=== PATIENT | female | born 1935 | race Caucasian/White ===

== ENCOUNTER 2016-04-24 14:53 | Emergency (ER) | payer OTHER ==
[2016-04-24 15:05] VITALS: TEMP 97.4; BMI 23.6
--- NOTE | 2016-04-24 16:30 | PDOC ---
History of Present Illness - General History Source: Patient Exam Limitations: No Limitations - History of Present Illness Initial Comments: 04/24/16 16:30 CHIEF COMPLAINT: Weakness HISTORY OF PRESENT ILLNESS: This is a 81 year old female with a history of NIDDM , HTN, HLD, prior UTIs, appendectomy, cholecystectomy, and right THR in March 2016 brought in by her son for evaluation of generalized weakness, vomiting, and abdominal pain since yesterday. The patient reports that her "whole body is numb." She denies headache, chest pain, shortness of breath, constipation/diarrhea, hematemesis, and fevers/chills. Vital signs on arrival are unremarkable. PCP is Dr. Hoffmann REVIEW OF SYSTEMS: GENERAL/CONSTITUTIONAL: No fever or chills. No weakness. No weight change. HEAD, EYES, EARS, NOSE AND THROAT: No change in vision. No ear pain or discharge. No sore throat. CARDIOVASCULAR: No chest pain or palpitations. RESPIRATORY: No cough, wheezing, or shortness of breath. GASTROINTESTINAL: Lower abdominal pain, bilateral. Nausea/vomiting and inability to tolerate fluids since yesterday. GENITOURINARY: Dysuria. No frequency or hematuria. MUSCULOSKELETAL: Chronic left hip pain. SKIN: No rash or easy bruising. NEUROLOGIC: Numbness throughout body. No headache, vertigo, loss of consciousness, or focal weakness. PSYCHIATRIC: No depression or anxiety. ENDOCRINE: No increased thirst. No abnormal weight change. HEMATOLOGIC/LYMPHATIC: No anemia, easy bleeding, or history of blood clots. ALLERGIC/IMMUNOLOGIC: No hives or skin allergy. No latex allergy. PHYSICAL EXAM: GENERAL: The patient is awake, alert, and fully oriented, appears pale, weak, writhing in pain. ENT: Pupils equal, round and reactive to light, extraocular movements intact, sclera anicteric, conjunctiva clear. Neck supple. LUNGS: Clear to auscultation bilaterally. Normal excursion. No respiratory distress or use of accessory muscles. CV: RRR, S1/S2, no MRG. Cap refill < 2 sec. ABDOMEN: Soft, non-distended, tender to gentle palpation in both RLQ and LLQ. EXTREMITIES: Normal range of motion, no edema. Normal strength and sensation in all extremities. NEUROLOGICAL: Normal speech. CN II-XII grossly intact. PSYCH: Normal mood, normal affect. SKIN: Warm, dry, normal turgor, no rashes or lesions noted. <Kelley Barrios - Last Filed: 04/24/16 17:58> <Mayi Monge - Last Filed: 04/24/16 22:54> - General Chief Complaint: Weakness Stated Complaint: WEANKNESS,VOMITING Time Seen by Provider: 04/24/16 16:28 Past History - Past Medical History Anemia: No Asthma: No Cancer: No Cardiac Disorders: No CVA: No COPD: No CHF: No Dementia: No Diabetes: No GI Disorders: Yes (gerd) Disorders: No HTN: Yes Hypercholesterolemia: No Liver Disease: No Psychiatric Problems: Yes (depression) Seizures: No Thyroid Disease: No - Surgical History Abdominal Surgery: No Appendectomy: Yes Cardiac Surgery: No Cholecystectomy: No Lung Surgery: No Neurologic Surgery: No Orthopedic Surgery: Yes (LEFT LEG FX, ORIF IN [place] YEARS AGO) - Immunization History Immunization Up to Date: Yes - Psycho/Social/Smoking Cessation Hx Anxiety: No Suicidal Ideation: No Smoking Status: No Smoking History: Never smoked Have you smoked in the past 12 months: No Number of Cigarettes Smoked Daily: 0 Information on smoking cessation initiated: No Hx Alcohol Use: No Drug/Substance Use Hx: No Substance Use Type: None Hx Substance Use Treatment: No <Kelley Barrios - Last Filed: 04/24/16 17:58> <Mayi Monge - Last Filed: 04/24/16 22:54> - Past Medical History Allergies/Adverse Reactions: Allergies Allergy/AdvReac Type Severity Reaction Status Date / Time No Known Allergies Allergy Verified 04/24/16 15:01 Home Medications: Ambulatory Orders Amlodipine Besylate [Norvasc -] 5 mg PO DAILY 03/23/16 Sertraline HCl 50 mg PO DAILY 03/23/16 Zolpidem Tartrate [Ambien] 10 mg PO HS PRN 03/23/16 Aspirin [ASA -] 325 mg PO DAILY@0800 tablet 04/04/16 Oxycodone HCl/Acetaminophen [Oxycodone-Acetaminophen 10-325] 1 each PO QID PRN # 50 tablet MDD 4 04/04/16 Cephalexin [Keflex] 500 mg PO Q6H #20 capsule 04/24/16 Omeprazole 10 mg PO DAILY 04/24/16 *Physical Exam - Vital Signs Last Vital Signs Temp Pulse Resp BP Pulse Ox 97.4 F L 77 18 142/70 100 04/24/16 15:02 04/24/16 15:02 04/24/16 15:02 04/24/16 15:02 04/24/16 15:02 <SophieTraciea - Last Filed: 04/24/16 17:58> - Vital Signs Last Vital Signs Temp Pulse Resp BP Pulse Ox 97.4 F L 82 18 142/84 95 04/24/16 15:02 04/24/16 19:34 04/24/16 19:34 04/24/16 19:34 04/24/16 19:34 <Mayi Monge - Last Filed: 04/24/16 22:54> Heart Score/ECG Review - ECG Intrepretation Comment:: 04/24/16 17:46 NSR at 72bpm, no ST or T wave changes. <Kelley Barrios - Last Filed: 04/24/16 17:58> ED Treatment Course - LABORATORY CBC & Chemistry Diagram: 04/24/16 16:42 04/24/16 16:42 - RADIOLOGY Radiology Studies Ordered: Category Date Time Status CHEST X-RAY PORTABLE* [RAD] Stat Radiology 04/24/16 16:30 Ordered <Kelley Barrios - Last Filed: 04/24/16 17:58> - LABORATORY CBC & Chemistry Diagram: 04/24/16 16:42 04/24/16 16:42 - ADDITIONAL ORDERS Additional order review: Laboratory Results 04/24/16 04/24/16 04/24/16 17:18 16:42 16:42 INR Cancelled Sodium Potassium Chloride Carbon Dioxide Anion Gap BUN Creatinine Creat Clearance w eGFR Random Glucose Calcium Total Bilirubin AST ALT Alkaline Phosphatase Creatine Kinase 156 CK-MB (CK-2) < 1.000 Troponin I < 0.02 Total Protein Albumin Urine Color Straw Urine Appearance Clear Urine pH 8.0 D Ur Specific [place] 1.005 Urine Protein Negative Urine Glucose (UA) Negative Urine Ketones Negative Urine Blood Negative Urine Nitrite Negative Urine Bilirubin Negative Urine Urobilinogen Negative Ur Leukocyte Esterase 1+ H Urine RBC 1 Urine WBC 9 Ur Epithelial Cells Rare Urine Bacteria Rare 04/24/16 16:42 INR Sodium 132 L Potassium 4.6 Chloride 99 Carbon Dioxide 25 Anion Gap 8 BUN 8 Creatinine 0.6 Creat Clearance w eGFR > 60 Random Glucose 103 Calcium 9.2 Total Bilirubin 0.4 D AST 26 D ALT 15 Alkaline Phosphatase 140 H D Creatine Kinase CK-MB (CK-2) Troponin I Total Protein 7.5 Albumin 3.8 Urine Color Urine Appearance Urine pH Ur Specific [place] Urine Protein Urine Glucose (UA) Urine Ketones Urine Blood Urine Nitrite Urine Bilirubin Urine Urobilinogen Ur Leukocyte Esterase Urine RBC Urine WBC Ur Epithelial Cells Urine Bacteria 04/24/16 16:42 RBC 3.53 L MCV 88.5 MCHC 33.5 RDW 14.3 MPV 7.0 L Neutrophils % 78.0 Lymphocytes % 12.4 D Monocytes % 8.1 Eosinophils % 1.0 Basophils % 0.5 - Medications Given in the ED: ED Medications Discontinued Medications Generic Name Dose Route Start Last Admin Trade Name Mahinq PRN Reason Stop Dose Admin Ceftriaxone Sodium 1 gm/ 50 mls @ 100 mls/hr 04/24/16 17:57 04/24/16 18:20 Dextrose IVPB 04/24/16 18:26 100 mls/hr ONCE ONE Administration Morphine Sulfate 4 mg 04/24/16 16:47 04/24/16 17:25 Morphine Injection - IVPUSH 04/24/16 16:48 4 mg ONCE ONE Administration Ondansetron HCl 4 mg 04/24/16 16:36 04/24/16 17:20 Zofran Injection IVPUSH 04/24/16 16:37 4 mg ONCE ONE Administration Phenazopyridine HCl 100 mg 04/24/16 22:29 04/24/16 22:50 Pyridium - PO 04/24/16 22:30 100 mg ONCE ONE Administration <Mayi Monge - Last Filed: 04/24/16 22:54> Medical Decision Making - Medical Decision Making 04/24/16 17:46 A/P: 81 year old female with generalized weakness, numbness (nonfocal neurologic exam), vomiting, and abdominal pain with bilateral lower abdominal tenderness. Differential includes but is not limited to UTI, colitis/ diverticulitis, gastroenteritis. 1. EKG 2. Cardiac and abdominal labs 3. UA/culture 4. CTAP with PO/IV contrast 5. Morphine 4mg IVP for pain, Zofran 4mg IVP for nausea 6. IVF 7. Re-assess 04/24/16 17:57 UA with 9 WBCs, posibly consistent with UTI. Culture pending. Will treat with Ceftriaxone as she is symptomatic. Hgb is 10.5, which is improved since last visit. <Kelley Barrios - Last Filed: 04/24/16 17:58> *DC/Admit/Observation/Transfer <Kelley Barrios - Last Filed: 04/24/16 17:58> <Mayi Monge - Last Filed: 04/24/16 22:54> Diagnosis at time of Disposition: Urinary tract infection - Prescriptions Prescriptions: Cephalexin [Keflex] 500 mg PO Q6H #20 capsule - Referrals Referrals: Abner Sarabia MD [Primary Care Provider] - - Patient Instructions Printed Discharge Instructions: Urinary Tract Infection Additional Instructions: Drink plenty of fluids Take the Keflex as prescribed Return to the ER if fever or feeling sicker González your other issues with your primary care doctor and orthopedist, call them tomorrow to discuss this visit
[2016-04-24] MEDS ORDERED: ONDANSETRON 4 MG/2 ML VIAL IVPUSH ONE (16:36)
[2016-04-24] MEDS ORDERED: morphine CARPU-JECT 4 MG/1 ML DISP.SYRIN IVPUSH ONE (16:47)
[2016-04-24] MEDS ORDERED: ONDANSETRON 4 MG/2 ML VIAL ONE ×2 (16:47→16:48)
[2016-04-24] MEDS ORDERED: morphine CARPU-JECT 4 MG/1 ML DISP.SYRIN ONE (16:47)
[2016-04-24 16:52] LABS: BASOPHIL 0.5 % (0-2.0); MCH 29.7 pg (25.7-33.7); MCHC 33.5 g/dl (32.0-36.0); MEAN CELL VOLUME 88.5 fl (80-96); PLATELET COUNT 465 K/MM3 (134-434); RDW 14.3 % (11.6-15.6); WHITE BLOOD COUNT 7.2 K/mm3 (4.0-10.0)
[2016-04-24 17:11] LABS: ALBUMIN 3.8 g/dl (3.4-5.0); ANION GAP 8 (8-16); BILIRUBIN,TOTAL 0.4 mg/dL (0.2-1.0); CALCIUM 9.2 mg/dL (8.5-10.1); CO2 25 mmol/L (21-32); CREATININE 0.6 mg/dL (0.55-1.02); GLUCOSE,RANDOM 103 mg/dL (74-106); SGPT/ALT 15 U/L (12-78); TOT PROT 7.5 g/dl (6.4-8.2)
[2016-04-24 17:12] LABS: ALK PHOS 140 U/L (45-117)
[2016-04-24 17:14] LABS: TROPONIN I < 0.02 ng/ml (0.00-0.05)
[2016-04-24 17:26] LABS: SGOT/AST 26 U/L (15-37)
[2016-04-24 17:37] LABS: URINE APPEARANCE CLEAR; URINE BILIRUBIN NEGATIVE (NEGATIVE); URINE BLOOD NEGATIVE (NEGATIVE); URINE COLOR STRAW; URINE GLUCOSE (UA) NEGATIVE (NEGATIVE); URINE KETONE NEGATIVE (NEGATIVE); URINE NITRITE NEGATIVE (NEGATIVE); URINE PROTEIN NEGATIVE (NEGATIVE); URINE UROBILINOGEN NEGATIVE E.U./dl (0.2-1.0)
--- NOTE | 2016-04-24 17:44 | PDOC ---
[id number] 100 04/24/16 15:02 04/24/16 15:02 04/24/16 15:02 04/24/16 15:02 04/24/16 15:02 ED Treatment Course - LABORATORY CBC & Chemistry Diagram: 04/24/16 16:42 04/24/16 16:42 - ADDITIONAL ORDERS Additional order review: Laboratory Results 04/24/16 04/24/16 04/24/16 16:42 16:42 16:42 INR Cancelled Sodium 132 L Potassium 4.6 Chloride 99 Carbon Dioxide 25 Anion Gap 8 BUN 8 Creatinine 0.6 Creat Clearance w eGFR > 60 Random Glucose 103 Calcium 9.2 Total Bilirubin 0.4 D AST 26 D ALT 15 Alkaline Phosphatase 140 H D Troponin I < 0.02 Total Protein 7.5 Albumin 3.8 04/24/16 16:42 RBC 3.53 L MCV 88.5 MCHC 33.5 RDW 14.3 MPV 7.0 L Neutrophils % 78.0 Lymphocytes % 12.4 D Monocytes % 8.1 Eosinophils % 1.0 Basophils % 0.5 - Medications Given in the ED: ED Medications Discontinued Medications Generic Name Dose Route Start Last Admin Trade Name Freq PRN Reason Stop Dose Admin Morphine Sulfate 4 mg 04/24/16 16:47 04/24/16 17:25 Morphine Injection - IVPUSH 04/24/16 16:48 4 mg ONCE ONE Administration Ondansetron HCl 4 mg 04/24/16 16:36 04/24/16 17:20 Zofran Injection IVPUSH 04/24/16 16:37 4 mg ONCE ONE Administration Medical Decision Making - Medical Decision Making 04/24/16 17:43 Pt seen by the Advanced Practice Provider under my direct supervision Ancillary studies reviewed I agree with plan as outlined by the Advanced Practice Provider MONA Barrios *DC/Admit/Observation/Transfer Diagnosis at time of Disposition: Urinary tract infection - Discharge Dispostion Disposition: HOME - Prescriptions Prescriptions: Cephalexin [Keflex] 500 mg PO Q6H #20 capsule - Referrals Referrals: Abner Sarabia MD [Primary Care Provider] - - Patient Instructions Printed Discharge Instructions: Urinary Tract Infection Additional Instructions: Drink plenty of fluids Take the Keflex as prescribed Return to the ER if fever or feeling sicker González your other issues with your primary care doctor and orthopedist, call them tomorrow to discuss this visit
[2016-04-24 17:50] LABS: URINE LEUK ESTERASE 1+ (NEGATIVE)
[2016-04-24 17:51] LABS: URINE BACTERIA RARE /hpf (NONE SEEN); URINE RBC 1 /hpf (0-3); URINE WBC 9 /hpf (3-5)
[2016-04-24] MEDS ORDERED: CEFTRIAXONE 1 GM in DEXTROSE 5%-WATER - 50 ML IVPB ONE (17:57)
[2016-04-24] MEDS ORDERED: SODIUM CHLORIDE 1,000 ML IV SCH (18:00)
[2016-04-24] MEDS ORDERED: CEFTRIAXONE 50 ML ONE (18:12)
--- NOTE | 2016-04-24 19:18 | PDOC ---
*Physical Exam - Vital Signs Last Vital Signs Temp Pulse Resp BP Pulse Ox 97.4 F L 77 18 142/70 100 04/24/16 15:02 04/24/16 15:02 04/24/16 15:02 04/24/16 15:02 04/24/16 15:02 - Physical Exam Comments: 04/24/16 19:26 Patient signed out to me, pending CT scan, patient with UTI symptoms, abdominal pain, was given Rocephin in the ER, no fever, normal white count. Given pain, CT scan was ordered. Patient was feeling better + out to me, and if no acute issues, Go home, Keflex was sent to pharmacy by prior practitioner ED Treatment Course - LABORATORY CBC & Chemistry Diagram: 04/24/16 16:42 04/24/16 16:42 - ADDITIONAL ORDERS Additional order review: Laboratory Results 04/24/16 04/24/16 04/24/16 17:18 16:42 16:42 INR Cancelled Sodium Potassium Chloride Carbon Dioxide Anion Gap BUN Creatinine Creat Clearance w eGFR Random Glucose Calcium Total Bilirubin AST ALT Alkaline Phosphatase Troponin I < 0.02 Total Protein Albumin Urine Color Straw Urine Appearance Clear Urine pH 8.0 D Ur Specific [place] 1.005 Urine Protein Negative Urine Glucose (UA) Negative Urine Ketones Negative Urine Blood Negative Urine Nitrite Negative Urine Bilirubin Negative Urine Urobilinogen Negative Ur Leukocyte Esterase 1+ H Urine RBC 1 Urine WBC 9 Ur Epithelial Cells Rare Urine Bacteria Rare 04/24/16 16:42 INR Sodium 132 L Potassium 4.6 Chloride 99 Carbon Dioxide 25 Anion Gap 8 BUN 8 Creatinine 0.6 Creat Clearance w eGFR > 60 Random Glucose 103 Calcium 9.2 Total Bilirubin 0.4 D AST 26 D ALT 15 Alkaline Phosphatase 140 H D Troponin I Total Protein 7.5 Albumin 3.8 Urine Color Urine Appearance Urine pH Ur Specific [place] Urine Protein Urine Glucose (UA) Urine Ketones Urine Blood Urine Nitrite Urine Bilirubin Urine Urobilinogen Ur Leukocyte Esterase Urine RBC Urine WBC Ur Epithelial Cells Urine Bacteria 04/24/16 16:42 RBC 3.53 L MCV 88.5 MCHC 33.5 RDW 14.3 MPV 7.0 L Neutrophils % 78.0 Lymphocytes % 12.4 D Monocytes % 8.1 Eosinophils % 1.0 Basophils % 0.5 - Medications Given in the ED: ED Medications Discontinued Medications Generic Name Dose Route Start Last Admin Trade Name Freq PRN Reason Stop Dose Admin Ceftriaxone Sodium 1 gm/ 50 mls @ 100 mls/hr 04/24/16 17:57 04/24/16 18:20 Dextrose IVPB 04/24/16 18:26 100 mls/hr ONCE ONE Administration Morphine Sulfate 4 mg 04/24/16 16:47 04/24/16 17:25 Morphine Injection - IVPUSH 04/24/16 16:48 4 mg ONCE ONE Administration Ondansetron HCl 4 mg 04/24/16 16:36 04/24/16 17:20 Zofran Injection IVPUSH 04/24/16 16:37 4 mg ONCE ONE Administration Medical Decision Making - Medical Decision Making 04/24/16 22:51 CT shows no change from prior, Discussed with Dr. Schaefer and reviewed case Discussed with son and patient, patient is taking oxycodone at home due to her recent hip surgery. Will order her 1 before she goes home, and she will follow- up with her doctor and orthopedist regarding any other issues 04/24/16 22:54 Patient is hungry and eating *DC/Admit/Observation/Transfer Diagnosis at time of Disposition: Urinary tract infection Qualifiers: Qualified Code(s): N39.0 - Urinary tract infection, site not specified - Discharge Dispostion Admit: No - Prescriptions Prescriptions: Cephalexin [Keflex] 500 mg PO Q6H #20 capsule - Referrals Referrals: Abner Sarabia MD [Primary Care Provider] - - Patient Instructions Printed Discharge Instructions: Urinary Tract Infection Additional Instructions: Drink plenty of fluids Take the Keflex as prescribed Return to the ER if fever or feeling sicker González your other issues with your primary care doctor and orthopedist, call them tomorrow to discuss this visit
[2016-04-24 19:34] VITALS: BP 142/84; PULSE 82
[2016-04-24] MEDS ORDERED: PHENAZOPYRIDINE HCL 100 MG TABLET (FP) PO ONE (22:29)
[2016-04-24] MEDS ORDERED: PHENAZOPYRIDINE HCL 100 MG TABLET (FP) ONE (22:47)
[2016-04-24] MEDS ORDERED: OXYCODONE/APAP 5/325MG COMBO TABLET PO ONE (22:51)
[2016-04-24] MEDS ORDERED: OXYCODONE/APAP 5/325MG COMBO TABLET ONE (23:07)
--- NOTE | 2016-04-25 16:23 | EKG ---
Test Reason : Blood Pressure : / mmHG Vent. Rate : 072 BPM Atrial Rate : 072 BPM P-R Int : 156 ms QRS Dur : 086 ms QT Int : 404 ms P-R-T Axes : 018 028 031 degrees QTc Int : 442 ms NORMAL SINUS RHYTHM NORMAL ECG WHEN COMPARED WITH ECG OF 15-JAN-2016 21:42, NO SIGNIFICANT CHANGE WAS FOUND Confirmed by MARISOL SEYMOUR MD ([id number]) on 04/25/2016 4:23:07 PM Referred By: Confirmed By:MARISOL SEYMOUR MD
== END 2016-04-24 23:24 | disposition home or self-care (01) ==
LOC: JER 14:53
PROC: 3E03329 Introduction of Other Anti-infective into Peripheral Vein, Percutaneous Approach (ICD-10-PCS; principal; 2016-04-24)
PROC: 3E033NZ Introduction of Analgesics, Hypnotics, Sedatives into Peripheral Vein, Percutaneous Approach (ICD-10-PCS; 2016-04-24)
PROC: 3E033GC Introduction of Other Therapeutic Substance into Peripheral Vein, Percutaneous Approach (ICD-10-PCS; 2016-04-24)
DX: N39.0 Urinary tract infection, site not specified (principal); I10 Essential (primary) hypertension; E11.9 Type 2 diabetes mellitus without complications; Z79.84 Long term (current) use of oral hypoglycemic drugs; E78.00 Pure hypercholesterolemia, unspecified; F32.9 Major depressive disorder, single episode, unspecified
CPT/HCPCS: 36415; 71010-TC; 74177-TC; 80053; 81003; 81015; 82550; 82553; 84484; 85025; 87086; 93005; 93010; 96365; 96375; 99285-25

== ENCOUNTER 2016-05-17 11:28 | Inpatient (IN) | payer OTHER ==
--- NOTE | 2016-05-17 12:14 | PDOC ---
History of Present Illness <Cory Stuart - Last Filed: 05/17/16 16:04> - General History Source: Patient, Old Records Exam Limitations: No Limitations - History of Present Illness Initial Comments: 05/17/16 12:16 The patient is a 81-year-old woman, accompanied by son, with a significant past medical history of hypertension, gatsroesophageal reflux disease, recent UTI and depression who presents to the emergency department via EMS for further evaluation of flank pain. As per son, the patient was recently admitted for a urinary tract infection. Patient was started on antibiotics and was discharge. He states that the patient's symptoms, despite compliance/completion with antibiotics, have persisted. Patient's son states that the patient still experiences dysuria, described as a burning sensation with associated urinary frequency and little urine output (secondary to dysuria). Patient's symptoms worsen, approximately 4 days ago when the patient reported severe "pain in her kidneys". Patent's pain has progressively worsen, as now experiencing suprapubic pain, chills and she severe pain bilateral flank pain that exacerbated when sitting/standing and is now radiating down her legs. She denies fever, diaphoresis, generalized weakness. She denies chest pain, shortness of breath, cough She denies nausea, vomiting, diarrhea, hematuria, urinary urgency. Allergies: No Known Allergies Past Surgical History: Recent full left hip replacement. Left leg fracture. ORIF. Social History: No tobacco, ETOH and recreational drug use. Primary Care Physician: Dr. Abner Sarabia [phone] <Vibha Pina - Last Filed: 05/17/16 16:12> - General Stated Complaint: BACK PAIN Time Seen by Provider: 05/17/16 12:08 Past History - Past Medical History Anemia: No Asthma: No Cancer: No Cardiac Disorders: No CVA: No COPD: No CHF: No Dementia: No Diabetes: No GI Disorders: Yes (gerd) Disorders: No HTN: Yes Hypercholesterolemia: No Liver Disease: No Psychiatric Problems: Yes (depression) Seizures: No Thyroid Disease: No - Surgical History Abdominal Surgery: No Appendectomy: Yes Cardiac Surgery: No Cholecystectomy: No Lung Surgery: No Neurologic Surgery: No Orthopedic Surgery: Yes (LEFT LEG FX, ORIF IN [place] YEARS AGO) - Immunization History Immunization Up to Date: Yes - Psycho/Social/Smoking Cessation Hx Anxiety: No Suicidal Ideation: No Smoking Status: No Smoking History: Never smoked Have you smoked in the past 12 months: No Number of Cigarettes Smoked Daily: 0 Hx Alcohol Use: No Drug/Substance Use Hx: No Substance Use Type: None Hx Substance Use Treatment: No <Cory Stuart - Last Filed: 05/17/16 16:04> <Vibha Pina - Last Filed: 05/17/16 16:12> - Past Medical History Allergies/Adverse Reactions: Allergies Allergy/AdvReac Type Severity Reaction Status Date / Time No Known Allergies Allergy Verified 05/17/16 12:42 Home Medications: Ambulatory Orders Amlodipine Besylate [Norvasc -] 5 mg PO DAILY 03/23/16 Sertraline HCl 50 mg PO DAILY 03/23/16 Zolpidem Tartrate [Ambien] 10 mg PO HS PRN 03/23/16 Aspirin [ASA -] 325 mg PO DAILY@0800 tablet 04/04/16 Oxycodone HCl/Acetaminophen [Oxycodone-Acetaminophen 10-325] 1 each PO QID PRN # 50 tablet MDD 4 04/04/16 Omeprazole 10 mg PO DAILY 04/24/16 Ciprofloxacin [Cipro (Restricted To Id)] 250 mg PO BID 05/17/16 Gabapentin 300 mg PO DAILY 05/17/16 Review of Systems - Review of Systems Constitutional: Yes: Chills. No: Fever Respiratory: No: Shortness of Breath Cardiac (ROS): No: Chest Pain ABD/GI: No: Diarrhea, Poor Appetite, Vomiting : Yes: See HPI Musculoskeletal: Yes: Back Pain All Other Systems: Reviewed and Negative <Cory Stuart - Last Filed: 05/17/16 16:04> *Physical Exam - Physical Exam Comments: 05/17/16 12:16 GENERAL: The patient is awake, alert, and fully oriented, in no acute distress. HEAD: Normal with no signs of trauma. EYES: Pupils equal, round and reactive to light, extraocular movements intact, sclera anicteric, conjunctiva clear with no pallor. ENT: Ears normal, nares patent, oropharynx clear without exudates. Moist mucous membranes. NECK: Normal range of motion, supple without lymphadenopathy, JVD, or masses. LUNGS: Breath sounds equal, clear to auscultation bilaterally. No wheeze/ crackles. HEART: Regular rate and rhythm, normal S1 and S2 without murmur or rub. ABDOMEN: Soft. There is lower abdominal tenderness to palpation with guarding. Nondistended. BS wnl. No rebound. No palpable masses. No hepatosplenomegaly. BACK: There is bilateral CVA tenderness. There is also discomfort across the back with gentle palpation. No bruising or swelling or cellulitis. EXTREMITIES: There is full range of motion with full strength but with some reproducible pain on flexion of the left lower extremity. No edema. No clubbing or cyanosis. No cords, erythema, or tenderness. NEUROLOGICAL: Cranial nerves II through XII grossly intact. Normal speech. PSYCH: Normal mood, normal affect. SKIN: Warm to touch. <Vibha Pina - Last Filed: 05/17/16 16:12> Heart Score/ECG Review #1 ECG reviewed & interpreted by me at: 13:11 General ECG Interpretation: Sinus Rhythm, Normal Rate (70), Normal Intervals ( qtc 427), No acute ischemic changes <Cory Stuart - Last Filed: 05/17/16 16:04> ED Treatment Course - LABORATORY CBC & Chemistry Diagram: 05/17/16 13:05 05/17/16 13:05 <Cory Stuart - Last Filed: 05/17/16 16:04> - LABORATORY CBC & Chemistry Diagram: 05/17/16 13:05 05/17/16 13:05 - RADIOLOGY Radiograph Interpretation: 05/17/16 14:44 EXAM: RAD/CHEST X-RAY PORTABLE IMPRESSION: A single view reveals a weak inspiration with some central crowding , prominent mediastinum and degenerative changes. Correlation recommended EXAM: CT/ABDOMEN PELVIS CT WITH CONTR HISTORY IMPRESSION: The lung bases are clear. There is a small hiatal hernia in the retrocardiac space. Since a prior study of 04/24/2016, there has been no significant change. Again noted is mild inflammatory changes within the central mesentery of the upper and mid abdomen. Also again noted is dilatation of the right renal pelvis and proximal two thirds of the right ureter. The distal third of the ureter is normal in caliber. The etiology of this caliber change is uncertain and the possibility of a ureteral stricture cannot be excluded. There is no evidence of a calcification that might represent an obstructing calculus. Clinical correlation is advised. A follow-up retrograde urogram may be warranted. There is no evidence of left-sided hydronephrosis, although the proximal left ureter is also slightly dilated. Again, no obvious obstruction is identified. The liver, spleen, pancreas and adrenal glands demonstrate no significant abnormalities. The gallbladder is clear. There is no evidence of intra-abdominal or retroperitoneal lymphadenopathy or fluid collections. Examination of the pelvis demonstrates no evidence of pelvic masses, fluid collections or lymphadenopathy. The urinary bladder is mildly distended. Evaluation of the bony structures of the abdomen and pelvis demonstrates multiple compression fractures unchanged since the previous examination and most probably chronic in nature. <Vibha Pina - Last Filed: 05/17/16 16:12> Medical Decision Making - Medical Decision Making 05/17/16 12:45 A portion of this note was documented by scribe services under my direction. I have reviewed the details of the note, within reason, and agree with the documentation with the following case summary and management plan written by me. 81-year-old female with multiple medical problems including non-insulin- dependent diabetes, status post hip replacement in March, diagnosed with UTI on 04/24/16 (contaminated culture) and treated with Keflex, CTAP at that time showed reportedly new hydroureter bilaterally, now status post completion of antibiotic course but with persistent urinary complaints of burning/frequency/ hesitancy, progressive low back and now bilateral flank pain radiating down both legs and with generalized weakness and chills. No trauma. Afebrile here, vitals normal. Exquisitely tender throughout the low back and lower abdomen with positive guarding. Positive CVA tenderness bilaterally. Neurologically intact otherwise. Presentation could be most consistent with persistent UTI/bilateral pyelonephritis, concern for obstruction given the new hydroureter seen on previous CTAP. Question musculoskeletal back pain, compression fractures were noted on prior CTAP as well. Check full set of labs including urinalysis Repeat CTAP to assess ureter status and kidneys Pain control Reassess 05/17/16 14:07 No leukocytosis, slight anemia with hemoglobin 9.8 but unchanged from 04/05, chemistries within normal limits including normal troponin and normal lactate. Urinalysis clear, chest x-ray normal. Awaiting CTAP, dispo accordingly. 05/17/16 16:04 CTAP confirms no acute intrabdominal process, chronic compression fractures in the spine. Still with low back and leg pain. D/W Dr. Sarabia, patient's PMD who knows the case well, confirms patient has known lumbar herniated disc with nerve compression, has seen Dr. Charles and was suggested to have spinal surgery but she declined. Agrees patient is far from her baseline, wants admission and neurosurgical consult <Cory Stuart - Last Filed: 05/17/16 16:04> - Medical Decision Making 05/17/16 16:11 Case discussed with patient's Primary Care Physician, Dr. bAner Sarabia who accepts case. <Vibha Pina - Last Filed: 05/17/16 16:12> *DC/Admit/Observation/Transfer - Discharge Dispostion Admit: Yes <Cory Stuart - Last Filed: 05/17/16 16:04> - Attestations Scribe Attestion: 05/17/16 12:36 Documentation prepared by Vibha Pina, acting as curator medical museum for Cory Stuart MD. <Vibha Pina - Last Filed: 05/17/16 16:12> Diagnosis at time of Disposition: Lower abdominal pain, Compression fracture Low back pain Qualifiers: Chronicity: acute Back pain laterality: bilateral Sciatica presence: without sciatica Qualified Code(s): M54.5 - Low back pain Herniated vertebral disc Qualifiers: Spinal region: lumbar Qualified Code(s): M51.26 - Other intervertebral disc displacement, lumbar region - Referrals Referrals: Abner Sarabia MD [Primary Care Provider] -
[2016-05-17] MEDS ORDERED: SODIUM CHLORIDE 1,000 ML IV ONE (12:26)
[2016-05-17] MEDS ORDERED: morphine CARPU-JECT 4 MG/1 ML DISP.SYRIN IVPUSH ONE (12:27)
[2016-05-17] MEDS ORDERED: morphine CARPU-JECT 4 MG/1 ML DISP.SYRIN ONE (12:48)
[2016-05-17 13:16] LABS: VENOUS BLOOD GAS HCO3 26.4 meq/L (22-29)
[2016-05-17 13:17] LABS: VENOUS PH 7.48 (7.31-7.41)
[2016-05-17 13:18] LABS: BASOPHIL 0.9 % (0-2.0); EOSINOPHIL 1.4 % (0-4.5); MCH 28.6 pg (25.7-33.7); MEAN CELL VOLUME 86.6 fl (80-96); MEAN PLT VOLUME 6.6 fl (7.5-11.1); NEUTROPHILS 70.8 % (42.8-82.8); PLATELET COUNT 346 K/MM3 (134-434); RDW 14.1 % (11.6-15.6); WHITE BLOOD COUNT 7.4 K/mm3 (4.0-10.0)
[2016-05-17 13:31] LABS: INR 1.11 (0.82-1.09); PROTHROMBIN TIME (PATIENT) 12.2 SEC (9.98-11.88)
[2016-05-17 13:34] LABS: ACTIVATED PTT 28.9 SECONDS (26.9-34.4)
[2016-05-17 13:38] LABS: URINE APPEARANCE CLEAR; URINE BILIRUBIN NEGATIVE (NEGATIVE); URINE BLOOD NEGATIVE (NEGATIVE); URINE COLOR COLORLESS; URINE GLUCOSE (UA) NEGATIVE (NEGATIVE); URINE KETONE NEGATIVE (NEGATIVE); URINE LEUK ESTERASE NEGATIVE (NEGATIVE); URINE NITRITE NEGATIVE (NEGATIVE); URINE PROTEIN NEGATIVE (NEGATIVE); URINE UROBILINOGEN NEGATIVE E.U./dl (0.2-1.0)
[2016-05-17 13:46] LABS: ALBUMIN 3.6 g/dl (3.4-5.0); ANION GAP 11 (8-16); BILIRUBIN,TOTAL 0.3 mg/dL (0.2-1.0); CALCIUM 8.9 mg/dL (8.5-10.1); CO2 26 mmol/L (21-32); CREATININE 0.6 mg/dL (0.55-1.02); GLUCOSE,RANDOM 94 mg/dL (74-106); SGOT/AST 11 U/L (15-37); SGPT/ALT 10 U/L (12-78); TOT PROT 6.8 g/dl (6.4-8.2)
[2016-05-17 13:49] LABS: ALK PHOS 94 U/L (45-117); TROPONIN I < 0.02 ng/ml (0.00-0.05)
[2016-05-17] MEDS ORDERED: HYDROmorphone HCL CARPU-JECT 1 MG/1 ML DISP.SYRIN IVPUSH ONE (16:09)
[2016-05-17] MEDS ORDERED: HYDROmorphone HCL CARPU-JECT 1 MG/1 ML DISP.SYRIN ONE (16:31)
[2016-05-17 18:41] VITALS: BMI 24.9
[2016-05-17] MEDS: LACTULOSE 20 GM/30 ML UDC (FOR ORAL USE ONLY) PO SCH (21:09)
[2016-05-17] MEDS: HYDROmorphone HCL CARPU-JECT 1 MG/1 ML DISP.SYRIN IVPB PRN (21:09)
[2016-05-17] MEDS: PANTOPRAZOLE 40 MG TABLET (FP) PO SCH (21:09)
[2016-05-17] MEDS: GABAPENTIN 300 MG CAPSULE (FP) PO SCH (21:09)
--- NOTE | 2016-05-17 22:58 | EKG ---
Test Reason : Blood Pressure : / mmHG Vent. Rate : 070 BPM Atrial Rate : 070 BPM P-R Int : 168 ms QRS Dur : 086 ms QT Int : 396 ms P-R-T Axes : 008 027 025 degrees QTc Int : 427 ms NORMAL SINUS RHYTHM NORMAL ECG WHEN COMPARED WITH ECG OF 24-APR-2016 17:32, NO SIGNIFICANT CHANGE WAS FOUND Confirmed by TOMASZ TYSON MD ([id number]) on 05/17/2016 10:58:24 PM Referred By: Confirmed By:TOMASZ TYSON MD
[2016-05-18] MEDS: HYDROmorphone HCL CARPU-JECT 1 MG/1 ML DISP.SYRIN IVPB PRN ×5 (00:58→19:55)
--- NOTE | 2016-05-18 08:01 | HP ---
Admitting History and Physical - Primary Care Physician PCP: Abner Sarabia - Admission Chief Complaint: Low back pain and inability to walk History of Present Illness: Known case of LS spine disc disease with radiculitis who has been taking percocet or Hydrocodone for pain relief.Was referred to Dr. Silvano OCHOA in the past. Claims pain in the lower back has become unbearable and with radiation to both thighs posteriorly with severe weakness and inability to stand or walk. Came to ED and underwent a CT of abdomen which showed a hydronephrosis of right kidney and right ureter which could be due to a stricture. She was given IV Dilaudid for pain with relief. She is admitted for further management. History Source: Patient Limitations to Obtaining History: No Limitations - Past Medical History Cardiovascular: Yes: HTN, Hyperlipdemia Pulmonary: No: Asthma, Bronchitis, Cancer, COPD, O2 Dependent, Pneumonia, Previously Intubated, Pulmonary Embolus, Pulmonary Fibrosis, Sleep Apnea, Other Gastrointestinal: Yes: Constipation, Gastritis Renal/: No: Renal Failure, Renal Inusuff, BPH, Cancer, Hematuria, Hemodialysis , Neurogenic Bladder, Renal Calculi, UTI, Other Psych: Yes: Anxiety - Past Surgical History Additional Past Surgical History: Underwent left hip replacement in april of this year by - Smoking History Smoking history: Never smoked Have you smoked in the past 12 months: No Aproximately how many cigarettes per day: 0 - Alcohol/Substance Use Hx Alcohol Use: No - Social History Usual Living Arrangement: Yes: Alone ADL: Independent History of Recent Travel: No Home Medications - Allergies Allergies/Adverse Reactions: Allergies Allergy/AdvReac Type Severity Reaction Status Date / Time No Known Allergies Allergy Verified 05/17/16 12:42 - Home Medications Home Medications: Ambulatory Orders Amlodipine Besylate [Norvasc -] 5 mg PO DAILY 03/23/16 Sertraline HCl 50 mg PO DAILY 03/23/16 Zolpidem Tartrate [Ambien] 10 mg PO HS PRN 03/23/16 Aspirin [ASA -] 325 mg PO DAILY@0800 tablet 04/04/16 Oxycodone HCl/Acetaminophen [Oxycodone-Acetaminophen 10-325] 1 each PO QID PRN # 50 tablet MDD 4 04/04/16 Omeprazole 10 mg PO DAILY 04/24/16 Ciprofloxacin [Cipro (Restricted To Id)] 250 mg PO BID 05/17/16 Gabapentin 300 mg PO DAILY 05/17/16 Review of Systems - Review of Systems Constitutional: reports: Weakness Eyes: reports: No Symptoms HENT: reports: No Symptoms Neck: reports: No Symptoms Cardiovascular: denies: No Symptoms, Chest Pain, Edema, Palpitations, Shortness of Breath, Other Respiratory: reports: No Symptoms Gastrointestinal: reports: Indigestion, Nausea Genitourinary: reports: No Symptoms Breasts: reports: No Symptoms Reported Musculoskeletal: reports: Back Pain, Muscle Pain, Muscle Weakness Integumentary: reports: No Symptoms Neurological: reports: Other (low back pain radiatesd to both thighs) Physical Examination Vital Signs: Vital Signs Temperature 98.3 F 05/18/16 06:31 Pulse Rate 68 05/18/16 06:31 Respiratory Rate 20 05/18/16 06:31 Blood Pressure 146/68 05/18/16 06:31 O2 Sat by Pulse Oximetry (%) 96 05/17/16 21:15 Constitutional: Yes: Anxious, Pallor Eyes: Yes: Conjunctiva Clear, EOM Intact HENT: Yes: WNL Neck: Yes: Supple Cardiovascular: Yes: Regular Rate and Rhythm, S1, S2 Respiratory: Yes: Regular, CTA Bilaterally Gastrointestinal: Yes: Normal Bowel Sounds, Soft Renal/: Yes: WNL Breast(s): Yes: WNL Musculoskeletal: Yes: Other (movements of the LS spine markedly restricted) Extremities: No: WNL, Amputation, Calf Tenderness, Cold, Cool, Cyanosis, Deformity, Delayed Capillary Refill, Erythema, External Rotation, Internal Rotation, Pallor, Shortened, Other Edema: No Peripheral Pulses WNL: Yes Integumentary: Yes: WNL Neurological: Yes: Alert, Oriented, Babinski negative, Cran Nerves II-XII Intact ...Motor Strength: WNL Psychiatric: Yes: Alert, Oriented Imaging - Results MRI: Report Reviewed Problem List - Problems (1) Compression fracture Assessment/Plan: Compression fractures are old, osteoporosis Code(s): T14.8 - OTHER INJURY OF UNSPECIFIED BODY REGION (2) Low back pain Assessment/Plan: MRI of the LS spine does not show any disc prolapse but bulging discs Code(s): M54.5 - LOW BACK PAIN Qualifiers: Chronicity: acute Back pain laterality: bilateral Sciatica presence : without sciatica Qualified Code(s): M54.5 - Low back pain (3) Lumbar radiculitis Assessment/Plan: although no overt disc prolapse but definite symptoms of radiculitis Code(s): M54.16 - RADICULOPATHY, LUMBAR REGION Assessment/Plan Continue Dilaudid for pain relief. MRI of LS spine Will consult Dr.Thomas Ochoa, neurosurgeon.
[2016-05-18 08:48] LABS: BASOPHIL 0.8 % (0-2.0); EOSINOPHIL 3.6 % (0-4.5); MCH 28.5 pg (25.7-33.7); MCHC 32.9 g/dl (32.0-36.0); MEAN CELL VOLUME 86.7 fl (80-96); MEAN PLT VOLUME 6.8 fl (7.5-11.1); NEUTROPHILS 63.5 % (42.8-82.8); PLATELET COUNT 325 K/MM3 (134-434); RDW 13.9 % (11.6-15.6); WHITE BLOOD COUNT 6.3 K/mm3 (4.0-10.0)
[2016-05-18] MEDS: PANTOPRAZOLE 40 MG TABLET (FP) PO SCH (09:45)
[2016-05-18] MEDS: amLODIPine BESYLATE 5 MG TABLET (FP) PO SCH (09:45)
[2016-05-18] MEDS: GABAPENTIN 300 MG CAPSULE (FP) PO SCH ×2 (09:45→22:23)
[2016-05-18] MEDS: LACTULOSE 20 GM/30 ML UDC (FOR ORAL USE ONLY) PO SCH ×3 (09:45→22:23)
[2016-05-18] MEDS ORDERED: SERTRALINE HCL 50 MG TABLET (FP) PO SCH (10:00)
--- NOTE | 2016-05-18 13:53 | PN ---
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
[2016-05-18] MEDS ORDERED: FENTANYL PATCH WASTE TD PRN (20:18)
[2016-05-18] MEDS ORDERED: fentaNYL 25mcg/hr PATCH.TD72 TD SCH (20:30)
[2016-05-19] MEDS: HYDROmorphone HCL CARPU-JECT 1 MG/1 ML DISP.SYRIN IVPB PRN ×2 (00:32→05:08)
--- NOTE | 2016-05-19 08:02 | PN ---
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
--- NOTE | 2016-05-19 10:09 | PN ---
Progress Note, Physician History of Present Illness: Low back pain has improved after Fentanyl patch. Denies any weakness numbness or weakness of the legs - Current Medication List Current Medications: Active Medications Amlodipine Besylate (Norvasc -) 5 mg PO DAILY [facility] Last Admin: 05/18/16 09:45 Dose: 5 mg Fentanyl (Duragesic 25mcg Patch -) 1 patch TD Q72H [facility] Stop: 05/25/16 20:18 Last Admin: 05/18/16 21:26 Dose: 1 patch Ferrous Sulfate (Feosol -) 325 mg PO BIDWM [facility] Gabapentin (Neurontin -) 300 mg PO BID [facility] Last Admin: 05/18/16 22:23 Dose: 300 mg Hydromorphone HCl (Dilaudid -) 2 mg PO Q4H PRN PRN Reason: PAIN Lactulose (Cephulac (Oral Use)) 20 gm PO BID [facility] Last Admin: 05/18/16 22:23 Dose: 20 gm Miscellaneous (Duragesic Patch Waste) 1 each TD PRN PRN PRN Reason: PAIN Naproxen (Naprosyn -) 375 mg PO DAILY [facility] Pantoprazole Sodium (Protonix -) 40 mg PO DAILY [facility] Last Admin: 05/18/16 09:45 Dose: 40 mg Sertraline HCl (Zoloft -) 75 mg PO DAILY [facility] - Objective Vital Signs: Vital Signs Temperature 98.0 F 05/19/16 09:02 Pulse Rate 74 05/19/16 09:02 Respiratory Rate 18 05/19/16 09:02 Blood Pressure 142/57 05/19/16 09:02 O2 Sat by Pulse Oximetry (%) 95 05/18/16 21:00 Constitutional: Yes: Well Nourished, Calm Eyes: Yes: Conjunctiva Clear, EOM Intact HENT: Yes: WNL Neck: Yes: Supple Cardiovascular: Yes: Regular Rate and Rhythm, S1, S2 Respiratory: Yes: Regular, CTA Bilaterally Gastrointestinal: Yes: Normal Bowel Sounds, Soft Genitourinary: Yes: WNL Musculoskeletal: Yes: Back Pain, Joint Stiffness Extremities: Yes: WNL Edema: No Peripheral Pulses WNL: Yes Integumentary: Yes: WNL Wound/Incision: Yes: Clean/Dry Neurological: Yes: Alert, Oriented, Cran Nerves II-XII Intact ...Motor Strength: WNL Psychiatric: Yes: Alert, Oriented Labs: CBC, BMP 05/18/16 06:30 INR, PTT INR 1.11 (0.82-1.09) 05/17/16 13:05 Problem List - Problems (1) Compression fracture Code(s): T14.8 - OTHER INJURY OF UNSPECIFIED BODY REGION (2) Low back pain Code(s): M54.5 - LOW BACK PAIN Qualifiers: Chronicity: acute Back pain laterality: bilateral Sciatica presence : without sciatica Qualified Code(s): M54.5 - Low back pain (3) Lumbar radiculitis Code(s): M54.16 - RADICULOPATHY, LUMBAR REGION Assessment/Plan Will consult for pain management. May have to increase dose of Fentanyl patch. Start physical therapy for ambulation
[2016-05-19] MEDS: GABAPENTIN 300 MG CAPSULE (FP) PO SCH ×2 (10:58→22:12)
[2016-05-19] MEDS: PANTOPRAZOLE 40 MG TABLET (FP) PO SCH (10:58)
[2016-05-19] MEDS: amLODIPine BESYLATE 5 MG TABLET (FP) PO SCH (10:58)
[2016-05-19] MEDS: LACTULOSE 20 GM/30 ML UDC (FOR ORAL USE ONLY) PO SCH ×2 (10:58→22:12)
[2016-05-19] MEDS: SERTRALINE HCL 50 MG TABLET (FP) PO SCH (10:58)
[2016-05-19] MEDS ORDERED: NAPROXEN 375 MG TABLET (FP) PO SCH (11:00)
[2016-05-19] MEDS: HYDROmorphone HCL 2 MG TABLET PO PRN ×3 (11:03→19:01)
--- NOTE | 2016-05-19 11:54 | CONSULT ---
Consult - History of Present Illness History of Present Illness: Pt interviewed with industrial engineering director. Ongoing chronic back pain more severe. Pt seen and evaluated by NS. Determined not to be a surgical candidate. - Past Medical History Cardio/Vascular: Yes: HTN, Hyperlipdemia Pulmonary: No: Asthma, Bronchitis, Cancer, COPD, O2 Dependent, Pneumonia, Previously Intubated, Pulmonary Embolus, Pulmonary Fibrosis, Sleep Apnea, Other Gastrointestinal: Yes: Constipation, Gastritis Renal/: No: Renal Failure, Renal Inusuff, BPH, Cancer, Hematuria, Hemodialysis , Neurogenic Bladder, Renal Calculi, UTI, Other Psych: Yes: Anxiety - Alcohol/Substance Use Hx Alcohol Use: No - Smoking History Smoking history: Never smoked Have you smoked in the past 12 months: No Aproximately how many cigarettes per day: 0 - Social History ADL: Independent History of Recent Travel: No Home Medications - Allergies Allergies/Adverse Reactions: Allergies Allergy/AdvReac Type Severity Reaction Status Date / Time No Known Allergies Allergy Verified 05/17/16 12:42 - Home Medications Home Medications: Ambulatory Orders Amlodipine Besylate [Norvasc -] 5 mg PO DAILY 03/23/16 Sertraline HCl 50 mg PO DAILY 03/23/16 Zolpidem Tartrate [Ambien] 10 mg PO HS PRN 03/23/16 Aspirin [ASA -] 325 mg PO DAILY@0800 tablet 04/04/16 Oxycodone HCl/Acetaminophen [Oxycodone-Acetaminophen 10-325] 1 each PO QID PRN # 50 tablet MDD 4 04/04/16 Omeprazole 10 mg PO DAILY 04/24/16 Ciprofloxacin [Cipro (Restricted To Id)] 250 mg PO BID 05/17/16 Gabapentin 300 mg PO DAILY 05/17/16 Physical Exam Vital Signs: Vital Signs Temperature 98.0 F 05/19/16 09:02 Pulse Rate 74 05/19/16 09:02 Respiratory Rate 18 05/19/16 09:02 Blood Pressure 142/57 05/19/16 09:02 O2 Sat by Pulse Oximetry (%) 95 05/18/16 21:00 Constitutional: Yes: Well Nourished, No Distress (talking on phone appears comfortable), Calm Eyes: Yes: EOM Intact, PERRL. No: Ptosis Musculoskeletal: Yes: Back Pain. No: Muscle Weakness (MS 5-/5 in UE and LE. DTR absent at ankle with knee 1/4 and downgoing plantar response sensation intact to LT and vib.) Neurological: Yes: Alert, Oriented, Cran Nerves II-XII Intact, Seizure (motor -5 /5 with no focal weakness. gait not observed.). No: Aphasia, Ataxia Labs: CBC, BMP 05/18/16 06:30 Assessment/Plan Acute exacerbation of chronic back pain Evaluated by spine expert Agree with NS suggest pain management consultation as outpatient.
--- NOTE | 2016-05-19 18:07 | CONSULT ---
Consult Consult Specialty:: pain medicine Referred by:: dr king Reason for Consultation:: back pain - History of Present Illness Chief Complaint: back pain History of Present Illness: 81 year old woman with recent left hip ORIF and now with increased back pain with radiating pain down the legs Pain score 9/10 She reports inability to stand or walk due to the pain. - Past Medical History Cardio/Vascular: Yes: HTN, Hyperlipdemia Pulmonary: No: Asthma, Bronchitis, Cancer, COPD, O2 Dependent, Pneumonia, Previously Intubated, Pulmonary Embolus, Pulmonary Fibrosis, Sleep Apnea, Other Gastrointestinal: Yes: Constipation, Gastritis Renal/: No: Renal Failure, Renal Inusuff, BPH, Cancer, Hematuria, Hemodialysis , Neurogenic Bladder, Renal Calculi, UTI, Other Psych: Yes: Anxiety - Alcohol/Substance Use Hx Alcohol Use: No - Smoking History Smoking history: Never smoked Have you smoked in the past 12 months: No Aproximately how many cigarettes per day: 0 - Social History ADL: Independent History of Recent Travel: No Home Medications - Allergies Allergies/Adverse Reactions: Allergies Allergy/AdvReac Type Severity Reaction Status Date / Time No Known Allergies Allergy Verified 05/17/16 12:42 - Home Medications Home Medications: Ambulatory Orders Amlodipine Besylate [Norvasc -] 5 mg PO DAILY 03/23/16 Sertraline HCl 50 mg PO DAILY 03/23/16 Zolpidem Tartrate [Ambien] 10 mg PO HS PRN 03/23/16 Aspirin [ASA -] 325 mg PO DAILY@0800 tablet 04/04/16 Oxycodone HCl/Acetaminophen [Oxycodone-Acetaminophen 10-325] 1 each PO QID PRN # 50 tablet MDD 4 04/04/16 Omeprazole 10 mg PO DAILY 04/24/16 Ciprofloxacin [Cipro (Restricted To Id)] 250 mg PO BID 05/17/16 Gabapentin 300 mg PO DAILY 05/17/16 Physical Exam Vital Signs: Vital Signs Temperature 98.4 F 05/19/16 13:58 Pulse Rate 85 05/19/16 13:58 Respiratory Rate 18 05/19/16 13:58 Blood Pressure 139/63 05/19/16 13:58 O2 Sat by Pulse Oximetry (%) 98 05/19/16 09:00 Musculoskeletal: Yes: Back Pain Labs: CBC, BMP 05/18/16 06:30 Assessment/Plan Lumbar radiculopathy 1. Patient is requesting a lumbar epidural steroid injection. We will perform this on her on Sunday. 2. For now, continue current pain medications 3. Rehab eval
[2016-05-19] MEDS: FERROUS SO4 325 MG TABLET (FP) PO SCH (19:02)
[2016-05-19] MEDS ORDERED: FENTANYL PATCH WASTE TD PRN (19:47)
[2016-05-19] MEDS ORDERED: fentaNYL 50mcg/hr PATCH.TD72 TD SCH (20:00)
[2016-05-20] MEDS: HYDROmorphone HCL 2 MG TABLET PO PRN ×4 (03:55→21:19)
--- NOTE | 2016-05-20 09:29 | PN ---
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
[2016-05-20] MEDS: LACTULOSE 20 GM/30 ML UDC (FOR ORAL USE ONLY) PO SCH ×3 (10:02→21:15)
[2016-05-20] MEDS: GABAPENTIN 300 MG CAPSULE (FP) PO SCH ×2 (10:02→21:15)
[2016-05-20] MEDS: FERROUS SO4 325 MG TABLET (FP) PO SCH ×2 (10:02→17:42)
[2016-05-20] MEDS: PANTOPRAZOLE 40 MG TABLET (FP) PO SCH (10:03)
[2016-05-20] MEDS: amLODIPine BESYLATE 5 MG TABLET (FP) PO SCH (10:03)
[2016-05-20] MEDS: SERTRALINE HCL 50 MG TABLET (FP) PO SCH (10:03)
--- NOTE | 2016-05-20 19:03 | PN ---
Progress Note, Physician History of Present Illness: Continues to have low back pain which has become less with Fentanyl but still needs Dilaudid for control.Fels burning sensation in both legs. Unable to sit or stand due to pain - Current Medication List Current Medications: Active Medications Amlodipine Besylate (Norvasc -) 5 mg PO DAILY [facility] Last Admin: 05/20/16 10:03 Dose: 5 mg Fentanyl (Duragesic 50mcg Patch -) 1 patch TD Q72H [facility] Stop: 05/26/16 19:48 Last Admin: 05/19/16 21:12 Dose: 1 patch Ferrous Sulfate (Feosol -) 325 mg PO BIDWM [facility] Last Admin: 05/20/16 17:42 Dose: 325 mg Gabapentin (Neurontin -) 300 mg PO BID [facility] Last Admin: 05/20/16 10:02 Dose: 300 mg Hydromorphone HCl (Dilaudid -) 2 mg PO Q4H PRN PRN Reason: PAIN Last Admin: 05/20/16 14:39 Dose: 2 mg Lactulose (Cephulac (Oral Use)) 20 gm PO BID [facility] Last Admin: 05/20/16 10:06 Dose: Not Given Miscellaneous (Duragesic Patch Waste) 1 each TD PRN PRN PRN Reason: PAIN Last Admin: 05/19/16 23:07 Dose: 1 each Miscellaneous (Duragesic Patch Waste) 1 each TD PRN PRN PRN Reason: PAIN Pantoprazole Sodium (Protonix -) 40 mg PO DAILY [facility] Last Admin: 05/20/16 10:03 Dose: 40 mg Polyethylene Glycol (Miralax (For Daily Use) -) 17 gm PO DAILY [facility] Sertraline HCl (Zoloft -) 75 mg PO DAILY [facility] Last Admin: 05/20/16 10:03 Dose: 75 mg Zolpidem Tartrate (Ambien -) 10 mg PO [facility] - Objective Vital Signs: Vital Signs Temperature 97.5 F L 05/20/16 16:30 Pulse Rate 69 05/20/16 16:30 Respiratory Rate 20 05/20/16 16:30 Blood Pressure 116/56 05/20/16 16:30 O2 Sat by Pulse Oximetry (%) 98 05/20/16 09:00 Constitutional: Yes: Well Nourished, Calm Eyes: Yes: WNL HENT: Yes: WNL Neck: Yes: Supple Cardiovascular: Yes: Regular Rate and Rhythm, S1, S2 Respiratory: Yes: Regular, CTA Bilaterally Gastrointestinal: Yes: Normal Bowel Sounds, Soft Genitourinary: Yes: WNL Musculoskeletal: Yes: Back Pain Extremities: Yes: WNL Edema: No Peripheral Pulses WNL: Yes Integumentary: Yes: WNL Neurological: Yes: Alert, Oriented, Cran Nerves II-XII Intact ...Motor Strength: WNL Psychiatric: Yes: Alert, Oriented Labs: CBC, BMP 05/18/16 06:30 INR, PTT INR 1.11 (0.82-1.09) 05/17/16 13:05 Problem List - Problems (1) Compression fracture Code(s): T14.8 - OTHER INJURY OF UNSPECIFIED BODY REGION (2) Low back pain Assessment/Plan: Continues to have pain but less with Fentanyl patch Code(s): M54.5 - LOW BACK PAIN Qualifiers: Chronicity: acute Back pain laterality: bilateral Sciatica presence : without sciatica Qualified Code(s): M54.5 - Low back pain (3) Lumbar radiculitis Code(s): M54.16 - RADICULOPATHY, LUMBAR REGION Assessment/Plan Fentanyl patch is at 50mcg/h, will try next 24hrs to see whether further increase is necessary. 's neurosurgical assessment appreciated and noted. Has been scheduled for EDSI on Sunday by .
[2016-05-20] MEDS: POLYETHYLENE GLYCOL 3350 119 GM BTL PO SCH (19:48)
[2016-05-20] MEDS: ZOLPIDEM TARTRATE 5 MG TABLET PO PRN (21:16)
[2016-05-20] MEDS ORDERED: QUEtiapine FUMARATE 25 MG TABLET (FP) PO SCH (22:00)
[2016-05-21] MEDS: HYDROmorphone HCL 2 MG TABLET PO PRN ×4 (05:35→22:01)
[2016-05-21] MEDS: SERTRALINE HCL 50 MG TABLET (FP) PO SCH (09:14)
[2016-05-21] MEDS: GABAPENTIN 300 MG CAPSULE (FP) PO SCH ×2 (09:14→21:36)
[2016-05-21] MEDS: amLODIPine BESYLATE 5 MG TABLET (FP) PO SCH (09:14)
[2016-05-21] MEDS: FERROUS SO4 325 MG TABLET (FP) PO SCH ×2 (09:15→17:49)
[2016-05-21] MEDS: PANTOPRAZOLE 40 MG TABLET (FP) PO SCH (09:15)
[2016-05-21] MEDS: LACTULOSE 20 GM/30 ML UDC (FOR ORAL USE ONLY) PO SCH ×2 (09:16→21:42)
[2016-05-21] MEDS: POLYETHYLENE GLYCOL 3350 119 GM BTL PO SCH (09:16)
[2016-05-21] MEDS: ZOLPIDEM TARTRATE 5 MG TABLET PO PRN (21:42)
--- NOTE | 2016-05-21 22:33 | PN ---
Progress Note, Physician History of Present Illness: Continues to have pain radiating down both legs.Still needs Dilaudid for breakthrough pain. Tried to stand but pain was very severe - Current Medication List Current Medications: Active Medications Amlodipine Besylate (Norvasc -) 5 mg PO DAILY [facility] Last Admin: 05/21/16 09:14 Dose: 5 mg Fentanyl (Duragesic 50mcg Patch -) 1 patch TD Q72H [facility] Stop: 05/26/16 19:48 Last Admin: 05/19/16 21:12 Dose: 1 patch Ferrous Sulfate (Feosol -) 325 mg PO BIDWM [facility] Last Admin: 05/21/16 17:49 Dose: 325 mg Gabapentin (Neurontin -) 300 mg PO BID [facility] Last Admin: 05/21/16 21:36 Dose: 300 mg Hydromorphone HCl (Dilaudid -) 2 mg PO Q4H PRN PRN Reason: PAIN Last Admin: 05/21/16 22:01 Dose: 2 mg Lactulose (Cephulac (Oral Use)) 20 gm PO BID [facility] Last Admin: 05/21/16 21:42 Dose: 20 gm Miscellaneous (Duragesic Patch Waste) 1 each TD PRN PRN PRN Reason: PAIN Last Admin: 05/19/16 23:07 Dose: 1 each Miscellaneous (Duragesic Patch Waste) 1 each TD PRN PRN PRN Reason: PAIN Pantoprazole Sodium (Protonix -) 40 mg PO DAILY [facility] Last Admin: 05/21/16 09:15 Dose: 40 mg Polyethylene Glycol (Miralax (For Daily Use) -) 17 gm PO DAILY [facility] Last Admin: 05/21/16 09:16 Dose: 17 gm Sertraline HCl (Zoloft -) 75 mg PO DAILY [facility] Last Admin: 05/21/16 09:14 Dose: 75 mg Zolpidem Tartrate (Ambien -) 5 mg PO HS PRN Last Admin: 05/21/16 21:42 Dose: 5 mg - Objective Vital Signs: Vital Signs Temperature 98.1 F 05/21/16 16:25 Pulse Rate 73 05/21/16 16:25 Respiratory Rate 20 05/21/16 16:25 Blood Pressure 127/55 05/21/16 16:25 O2 Sat by Pulse Oximetry (%) 96 05/21/16 21:00 Constitutional: Yes: Well Nourished, Calm Eyes: Yes: WNL HENT: Yes: WNL Neck: Yes: WNL Cardiovascular: Yes: Regular Rate and Rhythm, S1, S2 Respiratory: Yes: Regular, CTA Bilaterally Gastrointestinal: Yes: Normal Bowel Sounds, Soft Genitourinary: Yes: WNL Breast(s): Yes: WNL Musculoskeletal: Yes: Back Pain, Muscle Weakness Extremities: Yes: WNL Edema: No Peripheral Pulses WNL: Yes Integumentary: Yes: WNL Neurological: Yes: Alert, Oriented, Cran Nerves II-XII Intact ...Motor Strength: WNL Psychiatric: Yes: Alert, Oriented Labs: CBC, BMP 05/18/16 06:30 INR, PTT INR 1.11 (0.82-1.09) 05/17/16 13:05 - ....Imaging EKG: Report Reviewed, Image Reviewed Problem List - Problems (1) Compression fracture Code(s): T14.8 - OTHER INJURY OF UNSPECIFIED BODY REGION (2) Low back pain Code(s): M54.5 - LOW BACK PAIN Qualifiers: Chronicity: acute Back pain laterality: bilateral Sciatica presence : without sciatica Qualified Code(s): M54.5 - Low back pain (3) Lumbar radiculitis Assessment/Plan: Symtoms of radiculitis continues .At present on Fentanyl patch Code(s): M54.16 - RADICULOPATHY, LUMBAR REGION Assessment/Plan To undergo epidural injection by Jorge Alberto Whipple in AM. Will require long-term physical therapy.
[2016-05-22] MEDS: PANTOPRAZOLE 40 MG TABLET (FP) PO SCH (09:30)
[2016-05-22] MEDS: POLYETHYLENE GLYCOL 3350 119 GM BTL PO SCH (09:30)
[2016-05-22] MEDS: LACTULOSE 20 GM/30 ML UDC (FOR ORAL USE ONLY) PO SCH ×3 (09:30→21:18)
[2016-05-22] MEDS: amLODIPine BESYLATE 5 MG TABLET (FP) PO SCH (09:30)
[2016-05-22] MEDS: FERROUS SO4 325 MG TABLET (FP) PO SCH ×2 (09:30→17:32)
[2016-05-22] MEDS: GABAPENTIN 300 MG CAPSULE (FP) PO SCH ×2 (09:30→21:18)
[2016-05-22] MEDS: SERTRALINE HCL 50 MG TABLET (FP) PO SCH (09:31)
[2016-05-22] MEDS: HYDROmorphone HCL 2 MG TABLET PO PRN (09:31)
[2016-05-22] MEDS ORDERED: HYDROmorphone HCL 2 MG TABLET PO PRN ×3 (15:04→19:52)
[2016-05-22] MEDS ORDERED: BUPIVACAINE HCL/PF 0.5% (5MG/ML) 10 ML VIAL IJ ONE (18:10)
[2016-05-22] MEDS ORDERED: TRIAMCINOLONE ACET 40MG/1ML VIAL IM ONE (18:11)
[2016-05-22] MEDS ORDERED: BUPIVACAINE HCL/PF 0.5% (5MG/ML) 10 ML VIAL ONE (19:01)
[2016-05-22] MEDS ORDERED: TRIAMCINOLONE ACET 40MG/1ML VIAL ONE (19:01)
--- NOTE | 2016-05-22 19:16 | PN ---
Progress Note (short form) - Note Progress Note: Lumbar ALEJO performed. NO complications. Patient should expect relief in 1-3 days.
[2016-05-22] MEDS ORDERED: ZOLPIDEM TARTRATE 5 MG TABLET PO PRN (19:23)
[2016-05-22] MEDS ORDERED: FENTANYL PATCH WASTE TD PRN ×2 (19:23)
[2016-05-22] MEDS ORDERED: FENTANYL PATCH WASTE MC PRN (19:23)
--- NOTE | 2016-05-22 19:58 | PN ---
Progress Note, Physician History of Present Illness: Underwent Epidural steroid inj. Pain in the back better controlled with Fentanyl patch. Unable to sit due to severe pain. - Current Medication List Current Medications: Active Medications Amlodipine Besylate (Norvasc -) 5 mg PO DAILY [facility] Fentanyl (Duragesic 50mcg Patch -) 1 patch TD Q72H [facility] Stop: 05/26/16 19:48 Ferrous Sulfate (Feosol -) 325 mg PO BIDWM [facility] Gabapentin (Neurontin -) 300 mg PO BID [facility] Hydromorphone HCl (Dilaudid -) 2 mg PO Q6H PRN PRN Reason: PAIN Lactulose (Cephulac (Oral Use)) 20 gm PO BID [facility] Miscellaneous (Duragesic Patch Waste) 1 each TD PRN PRN PRN Reason: PAIN Pantoprazole Sodium (Protonix -) 40 mg PO DAILY [facility] Polyethylene Glycol (Miralax (For Daily Use) -) 17 gm PO DAILY [facility] Sertraline HCl (Zoloft -) 75 mg PO DAILY [facility] Zolpidem Tartrate (Ambien -) 5 mg PO HS PRN - Objective Vital Signs: Vital Signs Temperature 98.2 F 05/22/16 17:30 Pulse Rate 74 05/22/16 17:30 Respiratory Rate 16 05/22/16 17:30 Blood Pressure 114/60 05/22/16 17:30 O2 Sat by Pulse Oximetry (%) 97 05/22/16 09:00 Constitutional: Yes: Calm, Anxious Eyes: Yes: Conjunctiva Clear, EOM Intact HENT: Yes: WNL Neck: Yes: Supple Cardiovascular: Yes: Regular Rate and Rhythm, S1, S2 Respiratory: Yes: Regular, CTA Bilaterally Gastrointestinal: Yes: Normal Bowel Sounds, Soft Musculoskeletal: Yes: Back Pain, Joint Stiffness Extremities: Yes: WNL Edema: No Peripheral Pulses WNL: Yes Integumentary: Yes: WNL Neurological: Yes: Alert, Oriented, Cran Nerves II-XII Intact ...Motor Strength: WNL Psychiatric: Yes: Alert, Oriented Labs: CBC, BMP 05/18/16 06:30 INR, PTT INR 1.11 (0.82-1.09) 05/17/16 13:05 Problem List - Problems (1) Compression fracture Code(s): T14.8 - OTHER INJURY OF UNSPECIFIED BODY REGION (2) Low back pain Code(s): M54.5 - LOW BACK PAIN Qualifiers: Chronicity: acute Back pain laterality: bilateral Sciatica presence : without sciatica Qualified Code(s): M54.5 - Low back pain (3) Lumbar radiculitis Assessment/Plan: Continues to have severe low back pain.Denies any weakness or numbness Code(s): M54.16 - RADICULOPATHY, LUMBAR REGION Assessment/Plan Continue to observe. Trying to decrease dose of Dilaudid as patient appears more comfortable. .Will need PT as outpatient
[2016-05-22] MEDS ORDERED: fentaNYL 50mcg/hr PATCH.TD72 TD SCH (20:00)
[2016-05-23 00:08] LABS: ALBUMIN 3.4 g/dL (2.9-4.4); GLOBULIN, TOTAL 3.3 g/dL (2.2-3.9); M-SPIKE Not Observed g/dL (Not Observed); TOTAL PROTEIN 6.7 g/dL (6.0-8.5)
[2016-05-23] MEDS: FERROUS SO4 325 MG TABLET (FP) PO SCH ×2 (08:54→16:45)
[2016-05-23] MEDS: LACTULOSE 20 GM/30 ML UDC (FOR ORAL USE ONLY) PO SCH ×2 (09:44→21:51)
[2016-05-23] MEDS: POLYETHYLENE GLYCOL 3350 119 GM BTL PO SCH (09:44)
[2016-05-23] MEDS: SERTRALINE HCL 50 MG TABLET (FP) PO SCH (09:45)
[2016-05-23] MEDS: PANTOPRAZOLE 40 MG TABLET (FP) PO SCH (09:45)
[2016-05-23] MEDS: amLODIPine BESYLATE 5 MG TABLET (FP) PO SCH (09:45)
[2016-05-23] MEDS: GABAPENTIN 300 MG CAPSULE (FP) PO SCH ×2 (09:45→21:51)
[2016-05-23] MEDS: HYDROmorphone HCL 2 MG TABLET PO PRN (16:46)
--- NOTE | 2016-05-23 17:59 | PN ---
Progress Note, Physician History of Present Illness: Continues to have low back pain radiating down left thigh, was able to get up and go to the bathroom. - Current Medication List Current Medications: Active Medications Amlodipine Besylate (Norvasc -) 5 mg PO DAILY [facility] Last Admin: 05/23/16 09:45 Dose: 5 mg Fentanyl (Duragesic 50mcg Patch -) 1 patch TD Q72H [facility] Stop: 05/26/16 19:48 Last Admin: 05/22/16 20:15 Dose: 1 patch Ferrous Sulfate (Feosol -) 325 mg PO BIDWM [facility] Last Admin: 05/23/16 16:45 Dose: 325 mg Gabapentin (Neurontin -) 300 mg PO BID [facility] Last Admin: 05/23/16 09:45 Dose: 300 mg Hydromorphone HCl (Dilaudid -) 2 mg PO Q8H PRN PRN Reason: PAIN Last Admin: 05/23/16 16:46 Dose: 2 mg Lactulose (Cephulac (Oral Use)) 20 gm PO BID [facility] Last Admin: 05/23/16 09:44 Dose: 20 gm Miscellaneous (Duragesic Patch Waste) 1 each TD PRN PRN PRN Reason: PAIN Pantoprazole Sodium (Protonix -) 40 mg PO DAILY [facility] Last Admin: 05/23/16 09:45 Dose: 40 mg Polyethylene Glycol (Miralax (For Daily Use) -) 17 gm PO DAILY [facility] Last Admin: 05/23/16 09:44 Dose: 17 mg Sertraline HCl (Zoloft -) 75 mg PO DAILY [facility] Last Admin: 05/23/16 09:45 Dose: 75 mg Zolpidem Tartrate (Ambien -) 5 mg PO HS PRN Last Admin: 05/22/16 23:47 Dose: 5 mg - Objective Vital Signs: Vital Signs Temperature 98.2 F 05/23/16 17:44 Pulse Rate 81 05/23/16 17:44 Respiratory Rate 20 05/23/16 17:44 Blood Pressure 144/65 05/23/16 17:44 O2 Sat by Pulse Oximetry (%) 94 L 05/23/16 09:00 Constitutional: Yes: Well Nourished, No Distress, Calm Eyes: Yes: WNL HENT: Yes: WNL Neck: Yes: Supple Cardiovascular: Yes: Regular Rate and Rhythm, S1, S2 Respiratory: Yes: Regular, CTA Bilaterally Gastrointestinal: Yes: Normal Bowel Sounds, Soft Genitourinary: Yes: WNL Musculoskeletal: Yes: Back Pain, Joint Stiffness Extremities: Yes: WNL Edema: No Peripheral Pulses WNL: Yes Integumentary: Yes: WNL Neurological: Yes: Alert, Oriented ...Motor Strength: WNL Psychiatric: Yes: Alert, Oriented Labs: CBC, BMP 05/18/16 06:30 INR, PTT INR 1.11 (0.82-1.09) 05/17/16 13:05 Problem List - Problems (1) Compression fracture Code(s): T14.8 - OTHER INJURY OF UNSPECIFIED BODY REGION (2) Low back pain Assessment/Plan: After epidural injection has marked improvement in pain. Code(s): M54.5 - LOW BACK PAIN Qualifiers: Chronicity: acute Back pain laterality: bilateral Sciatica presence : without sciatica Qualified Code(s): M54.5 - Low back pain (3) Lumbar radiculitis Assessment/Plan: Lumbar radiculitis is now more localized to left side Code(s): M54.16 - RADICULOPATHY, LUMBAR REGION Assessment/Plan If she continues to improve will discharge in AM
--- NOTE | 2016-05-24 07:54 | PN ---
Progress Note, Physician Chief Complaint: improved! History of Present Illness: patient seen and examined. she reports feeling much better today. - Current Medication List Current Medications: Active Medications Amlodipine Besylate (Norvasc -) 5 mg PO DAILY [facility] Last Admin: 05/23/16 09:45 Dose: 5 mg Fentanyl (Duragesic 50mcg Patch -) 1 patch TD Q72H [facility] Stop: 05/26/16 19:48 Last Admin: 05/22/16 20:15 Dose: 1 patch Ferrous Sulfate (Feosol -) 325 mg PO BIDWM [facility] Last Admin: 05/23/16 16:45 Dose: 325 mg Gabapentin (Neurontin -) 300 mg PO BID [facility] Last Admin: 05/23/16 21:51 Dose: 300 mg Hydromorphone HCl (Dilaudid -) 2 mg PO Q8H PRN PRN Reason: PAIN Last Admin: 05/23/16 16:46 Dose: 2 mg Lactulose (Cephulac (Oral Use)) 20 gm PO BID [facility] Last Admin: 05/23/16 21:51 Dose: 20 gm Miscellaneous (Duragesic Patch Waste) 1 each TD PRN PRN PRN Reason: PAIN Pantoprazole Sodium (Protonix -) 40 mg PO DAILY [facility] Last Admin: 05/23/16 09:45 Dose: 40 mg Polyethylene Glycol (Miralax (For Daily Use) -) 17 gm PO DAILY [facility] Last Admin: 05/23/16 09:44 Dose: 17 mg Sertraline HCl (Zoloft -) 75 mg PO DAILY [facility] Last Admin: 05/23/16 09:45 Dose: 75 mg Zolpidem Tartrate (Ambien -) 5 mg PO HS PRN Last Admin: 05/22/16 23:47 Dose: 5 mg - Objective Vital Signs: Vital Signs Temperature 97.7 F 05/24/16 06:46 Pulse Rate 76 05/24/16 06:46 Respiratory Rate 20 05/24/16 06:46 Blood Pressure 148/78 05/24/16 06:46 O2 Sat by Pulse Oximetry (%) 94 L 05/23/16 21:00 Labs: CBC, BMP 05/18/16 06:30 INR, PTT INR 1.11 (0.82-1.09) 05/17/16 13:05 Assessment/Plan Lumbar radiculopathy improved 1. FOllow up with me as outpatient as needed- [phone] (office) 2. Recall prn
[2016-05-24] MEDS: PANTOPRAZOLE 40 MG TABLET (FP) PO SCH (09:50)
[2016-05-24] MEDS: FERROUS SO4 325 MG TABLET (FP) PO SCH (09:50)
[2016-05-24] MEDS: SERTRALINE HCL 50 MG TABLET (FP) PO SCH (09:50)
[2016-05-24] MEDS: LACTULOSE 20 GM/30 ML UDC (FOR ORAL USE ONLY) PO SCH (09:50)
[2016-05-24] MEDS: HYDROmorphone HCL 2 MG TABLET PO PRN (09:51)
[2016-05-24] MEDS: GABAPENTIN 300 MG CAPSULE (FP) PO SCH (09:51)
[2016-05-24] MEDS: amLODIPine BESYLATE 5 MG TABLET (FP) PO SCH (09:51)
[2016-05-24] MEDS: POLYETHYLENE GLYCOL 3350 119 GM BTL PO SCH (09:53)
--- NOTE | 2016-05-24 13:02 | CONSULT ---
Consult Consult Specialty:: PM&R - History of Present Illness Chief Complaint: B LBP down BLE into calves History of Present Illness: This is a 81 year old woman with a medical history of anxiety, HTN, HLD, gastritis, constipation, recent L hip replacement 04/25, who presented to the ED 05/17/16 with severe LBP which radiated down BLE. MRI lumbar spine 05/18/16 showed mild chronic L3 compression and possibly T12 as well, with multilevel disc bulges mainly at L2-3 with slight impingement on R L2 nerve root, and diffuse moderate B facet hypertrophy L3-4 through L5-S1. She had been seen in past by Neurosurgery for back pain, and was seen again this admission by Neurosurgery who felt she was not a surgical candidate. She was seen by Pain Management, and on 05/22/16 received ALEJO with some improvement in her pain. She was seen by PT, and on 05/24/16 she was Minimum to Moderate Assist in Transfers, and ambulated 50 feet Contact Guard x2 people with Rolling Walker. Physiatry is being consulted for further recommendations. - History Source History Provided By: Medical Record - Past Medical History Cardio/Vascular: Yes: HTN, Hyperlipdemia Pulmonary: No: Asthma, Bronchitis, Cancer, COPD, O2 Dependent, Pneumonia, Previously Intubated, Pulmonary Embolus, Pulmonary Fibrosis, Sleep Apnea, Other Gastrointestinal: Yes: Constipation, Gastritis Renal/: No: Renal Failure, Renal Inusuff, BPH, Cancer, Hematuria, Hemodialysis , Neurogenic Bladder, Renal Calculi, UTI, Other Psych: Yes: Anxiety - Alcohol/Substance Use Hx Alcohol Use: No - Smoking History Smoking history: Never smoked Have you smoked in the past 12 months: No Aproximately how many cigarettes per day: 0 - Social History Usual Living Arrangement: With Child (lives with son in 1st floor apartment with 8 steps to enter) ADL: Independent (with walker) History of Recent Travel: No Home Medications - Allergies Allergies/Adverse Reactions: Allergies Allergy/AdvReac Type Severity Reaction Status Date / Time No Known Allergies Allergy Verified 05/17/16 12:42 - Home Medications Home Medications: Ambulatory Orders Amlodipine Besylate [Norvasc -] 5 mg PO DAILY 03/23/16 Sertraline HCl 50 mg PO DAILY 03/23/16 Zolpidem Tartrate [Ambien] 10 mg PO HS PRN 12/15/16 Aspirin [ASA -] 325 mg PO DAILY@0800 tablet 04/04/16 Oxycodone HCl/Acetaminophen [Oxycodone-Acetaminophen 10-325] 1 each PO QID PRN # 50 tablet MDD 4 04/04/16 Omeprazole 10 mg PO DAILY 04/24/16 Ciprofloxacin [Cipro (Restricted To Id)] 250 mg PO BID 05/17/16 Gabapentin 300 mg PO DAILY 05/17/16 Family Disease History - Family Disease History Family History: Unable to Obtain Review of Systems Findings/Remarks: denies fevers, eye/ ear pain, CP, SOB, dysuria, numbness/ paresthesias B feet. Notes diffuse joint pain including neck and shoulders with B LBP down BLE into calves but not feet. Chronic constipation. No agitation. Physical Exam Vital Signs: Vital Signs Temperature 97.7 F 05/24/16 06:46 Pulse Rate 76 05/24/16 06:46 Respiratory Rate 20 05/24/16 06:46 Blood Pressure 148/78 05/24/16 06:46 O2 Sat by Pulse Oximetry (%) 94 L 05/23/16 21:00 Musculoskeletal: Yes: Other (General: calm elderly F sitting in bed NAD at rest, grimacing with BLE ROM HEENT: NCAT OP clear N/M: B shoulder flexion to 100 degrees, 4+/5 BUE/ BLE except 4/5 L HF. Pinprick Intact BUE/ BLE , diffusely hyporeflexic BUE/ BLE. Negative B Emdina's sign, B plantars downgoing. +L SLR at 45 degrees. Extremities: no BLE pitting edema, no B calf tenderness) Labs: CBC, BMP 05/18/16 06:30 Imaging - Results Chest X-ray: Report Reviewed (no acute pathology) Cat Scan: Report Reviewed (CT A/P 05/17/16 no acute pathology or significant changes compared to prior) MRI: Report Reviewed (as per HPI) Assessment/Plan Impression: 1) Deficits mobility/ ADLs 2) Deconditioning 3) Gait abnormality 4) LBP with radicular sx, and disc bulge L2-3 with slight R L2 nerve root impingement, and B moderate facet hypertrophy L3-4 through L5-S1 5) S/p 05/22/16 ALEJO with some improvement in pain 6) Mild chronic L3 and possibly T12 compression fx 7) Anemia 8) hx anxiety 9) hx HTN, HLD 10) hx gastritis 11) Chronic constipation 12) Recent L hip replacement 04/25 13) BMI WNL 14) Refused flu shot/ pneumovax Recommendations: 1) PT for core and BLE stretching strengthening ROM bed mobility transfers balance ambulation stairs 2) Falls, safety precautions 3) Cardiac precautions 4) Heat/ ice/ US/ TENs low back prn, trial lumbar corset prn 5) Currently on Fentanyl patch and Dilaudid 6) Gabapentin 300mg BID, may increase up to 1200mg TID as tolerated (based on Creatinine clearance 89) 7) Encourage prn bowel regimen 8) Skin protection: float heels, frequent turning 9) Monitor CBC given anemia 10) Neurosurgery and Pain Management notes appreciated, may need repeat ALEJO depending on dosage used 11) Continue management per Medicine 12) Discharge planning: given limited ambulation and ongoing pain, will likely need short- stay inpatient rehabilitation for core strengthening, modalities, endurance, balance, and pain management, unless she shows improvement in pain level and function over next few days. Thank you for this referral.
[2016-05-24 14:06] VITALS: BP 149/59; PULSE 85; TEMP 98.4
== END 2016-05-24 15:19 | disposition home or self-care (01) | DRG 543 ==
LOC: JER 11:28 → JERBED 16:15 → J8W 18:55
PROVIDERS: ADMIT Internal Medicine Hematology & Oncology; ATTEND Internal Medicine Hematology & Oncology
PROC: 3E0R3BZ Introduction of Anesthetic Agent into Spinal Canal, Percutaneous Approach (ICD-10-PCS; 2016-05-22)
PROC: 3E0R33Z Introduction of Anti-inflammatory into Spinal Canal, Percutaneous Approach (ICD-10-PCS; principal; 2016-05-22 18:00)
DX: M48.56XA Collapsed vertebra, not elsewhere classified, lumbar region, initial encounter for fracture (principal); N13.30 Unspecified hydronephrosis; I10 Essential (primary) hypertension; K21.9 Gastro-esophageal reflux disease without esophagitis; F32.9 Major depressive disorder, single episode, unspecified; E11.9 Type 2 diabetes mellitus without complications; M54.16 Radiculopathy, lumbar region; K29.60 Other gastritis without bleeding; F41.9 Anxiety disorder, unspecified; D64.9 Anemia, unspecified
CPT/HCPCS: 36415; 71010-TC; 72148-TC; 74177-TC; 76000-TC; 80053; 81003; 82550; 83605; 84155; 84165; 84484; 85025; 85610; 85651; 85730; 86850; 86900; 86901; 87040; 87086; 93005; 93010; 97116-GP; 97162-PG; 99285-25

== ENCOUNTER 2016-07-07 06:01 | Inpatient (IN) | payer OTHER ==
--- NOTE | 2016-06-29 14:57 | HP ---
Satellite [facility] - Chief Complaint Chief Complaint: right hip pain - Past Medical History Allergies/Adverse Reactions: Allergies Allergy/AdvReac Type Severity Reaction Status Date / Time No Known Allergies Allergy Verified 05/17/16 12:42 Cardiovascular: Yes: HTN, Hyperlipdemia Gastrointestinal: Yes: Constipation, Gastritis - Current Medications Current Medications: Home Medications Medication Instructions Recorded Amlodipine Besylate [Norvasc -] 5 mg PO DAILY 03/23/16 Sertraline HCl 50 mg PO DAILY 03/23/16 Zolpidem Tartrate [Ambien] 10 mg PO HS PRN 03/23/16 Aspirin [ASA -] 325 mg PO DAILY@0800 tablet 04/04/16 Oxycodone HCl/Acetaminophen 1 each PO QID PRN #50 tablet MDD 4 04/04/16 [Oxycodone-Acetaminophen 10-325] Omeprazole 10 mg PO DAILY 04/24/16 Ciprofloxacin [Cipro (Restricted 250 mg PO BID 05/17/16 To Id)] Gabapentin 300 mg PO DAILY 05/17/16 Satellite Physical Exam - Physical Examination General Appearance: Well Nourished, Well Developed, Alert & Oriented x3 ENT: Clear Lung: Normal air movement Heart: Regular rate & rhythm Extremities: Other (right hip- + ttp, decr rom, nvi xrays show severe hip djd) Neurological: Intact, Alert, Oriented Satellite Impression/Plan - Impression/Plan Impression: right hip djd Operative Procedure: right betito thr Date to be Performed: 07/07/16
[2016-07-06 15:32] VITALS: BMI 29.2
[2016-07-07] MEDS ORDERED: ROPIVACAINE HCL 0.5% 30ML VIAL ONE (06:54)
[2016-07-07] MEDS ORDERED: EPINEPHrine/PF 1 MG/1 ML (1:1,000) AMPULE ONE (06:54)
[2016-07-07] MEDS ORDERED: MIDAZOLAM HCL 2 MG/2 ML SINGLE DOSE VIAL ONE (06:54)
[2016-07-07] MEDS ORDERED: DEXAMETHASONE SOD PHOSPHATE/PF 10 MG/ML SDV ONE (06:54)
[2016-07-07] MEDS ORDERED: CEFAZOLIN 2 GM in DEXTROSE 5%-WATER - 50 ML IVPB ONE (06:57)
[2016-07-07] MEDS ORDERED: TRANEXAMIC ACID 1000 MG/10 ML VIAL IVPUSH ONE (06:57)
[2016-07-07] MEDS ORDERED: GABAPENTIN 300 MG CAPSULE (FP) ONE (07:00)
[2016-07-07] MEDS ORDERED: CELECOXIB 200 MG CAPSULE ONE (07:00)
[2016-07-07] MEDS: GABAPENTIN 300 MG CAPSULE (FP) PO ONE (07:10)
[2016-07-07] MEDS: CELECOXIB 200 MG CAPSULE PO ONE (07:10)
[2016-07-07] MEDS ORDERED: VANCOMYCIN 1,000 MG VIAL (RESTRICTED TO ID ONLY) ONE (07:25)
[2016-07-07] MEDS ORDERED: ceFAZolin SODIUM 1 GM VIAL ONE ×2 (07:25→07:28)
[2016-07-07] MEDS ORDERED: ePHEDrine SULFATE 50 MG/1 ML AMPULE ONE ×3 (07:26→09:24)
[2016-07-07] MEDS ORDERED: SUCCINYLCHOLINE CHLORIDE 200 MG/10 ML VIAL ONE (07:27)
[2016-07-07] MEDS ORDERED: PROPOFOL 20 ML ONE ×6 (07:27)
[2016-07-07] MEDS ORDERED: TRANEXAMIC ACID 1000 MG/10 ML VIAL ONE ×2 (07:28)
[2016-07-07] MEDS ORDERED: BUPIVACAINE HCL/PF 0.5% (5MG/ML) 10 ML VIAL ONE (07:34)
[2016-07-07] MEDS ORDERED: ceFAZolin SODIUM 1 GM VIAL IVPB ONE (08:31)
[2016-07-07] MEDS ORDERED: SODIUM CHLORIDE 0.9% P/F 10 ML VIAL IJ ONE (09:25)
[2016-07-07] MEDS ORDERED: ONDANSETRON 4 MG/2 ML VIAL IVPB PRN (10:21)
[2016-07-07] MEDS ORDERED: MAGNESIUM HYDROX 2400MG/30ML ORAL SUSPENSION 30 ML CUP PO PRN (10:21)
[2016-07-07] MEDS ORDERED: ONDANSETRON 4 MG/2 ML VIAL IVPUSH PRN (10:21)
[2016-07-07] MEDS ORDERED: MAG HYDROX/AL HYDROX/SIMETH 30 ML UNIT-DOSE CUP PO PRN (10:21)
[2016-07-07] MEDS ORDERED: PROMETHAZINE HCL 25 MG/1 ML VIAL IVPUSH PRN (10:21)
[2016-07-07] MEDS ORDERED: oxyCODONE HCL 5 MG TABLET PO PRN (10:21)
--- NOTE | 2016-07-07 10:26 | OP ---
Operative Note - Note: Operative Date: 07/07/16 (gerri) Pre-Operative Diagnosis: right hip djd Operation: right betito thr Post-Operative Diagnosis: Same as Pre-op Surgeon: Charles Longo Body Sander: Josiah German Anesthesiologist/PRECISION MACHINE OPERATOR: Wolf Rush Anesthesia: Spinal, Local Specimens Removed: femoral head Estimated Blood Loss (mls): 300 Operative Report Dictated: Yes
[2016-07-07] MEDS ORDERED: LACTATED RINGERS SOLUTION 1,000 ML IV SCH (10:30)
[2016-07-07] MEDS ORDERED: ACETAMINOPHEN 1000 MG/100 ML VIAL (NON FORMULARY) IVPB ONE (11:00)
[2016-07-07 12:02] LABS: MCH 27.5 pg (25.7-33.7); MCHC 33.2 g/dl (32.0-36.0); MEAN PLT VOLUME 6.6 fl (7.5-11.1); PLATELET COUNT 220 K/MM3 (134-434); RDW 14.3 % (11.6-15.6); WHITE BLOOD COUNT 10.2 K/mm3 (4.0-10.0)
[2016-07-07 12:31] LABS: MCHC 34.1 g/dl (32.0-36.0); MEAN CELL VOLUME 82.2 fl (80-96); MEAN PLT VOLUME 6.8 fl (7.5-11.1); PLATELET COUNT 287 K/MM3 (134-434); RDW 14.5 % (11.6-15.6); WHITE BLOOD COUNT 13.4 K/mm3 (4.0-10.0)
[2016-07-07] MEDS ORDERED: oxyCODONE HCL 5 MG TABLET ONE (12:40)
[2016-07-07] MEDS: CEFAZOLIN 2 GM/D5W 50 ML IVPB SCH ×2 (16:26→23:26)
[2016-07-07] MEDS: oxyCODONE HCL 5 MG TABLET PO PRN ×3 (16:27→23:25)
[2016-07-07] MEDS: ACETAMINOPHEN 325 MG TABLET (FP) PO SCH ×2 (18:00→23:25)
[2016-07-07] MEDS: SENNOSIDES/DOCUSATE COMBO (SENNA PLUS) TABLET (UD) PO SCH (21:43)
[2016-07-07] MEDS: GABAPENTIN 300 MG CAPSULE (FP) PO SCH (21:43)
[2016-07-07] MEDS ORDERED: oxyCODONE HCL 10 MG SUSTAINED ACTING TABLET PO SCH (22:00)
[2016-07-08] MEDS ORDERED: ZOLPIDEM TARTRATE 5 MG TABLET PO ONE (00:45)
[2016-07-08] MEDS: oxyCODONE HCL 5 MG TABLET PO PRN ×4 (03:26→21:21)
[2016-07-08] MEDS: ACETAMINOPHEN 325 MG TABLET (FP) PO SCH ×3 (05:25→18:32)
[2016-07-08] MEDS: ASPIRIN 325 MG TABLET PO SCH (08:00)
--- NOTE | 2016-07-08 09:09 | PN ---
Progress Note (short form) - Note Progress Note: Ortho Pt seen and examined s/p right betito thr pod #1 Selected Entries 07/08/16 05:36 Temperature 98.6 F Pulse Rate 86 Respiratory 18 Rate Blood Pressure 113/47 dressing c/d/i, calf soft, nt nvi cbc pending a/p f/u h/h PT dvt ppx pain control d/c planning
[2016-07-08] MEDS: FERROUS SO4 325 MG TABLET (FP) PO SCH (09:42)
[2016-07-08] MEDS: SENNOSIDES/DOCUSATE COMBO (SENNA PLUS) TABLET (UD) PO SCH ×2 (09:42→21:21)
[2016-07-08] MEDS: GABAPENTIN 300 MG CAPSULE (FP) PO SCH ×2 (09:42→21:21)
[2016-07-08] MEDS: PANTOPRAZOLE 40 MG TABLET (FP) PO SCH (09:42)
[2016-07-08] MEDS: MULTIVITAMINS (DAILY MVI) TABLET (FP) PO SCH (09:43)
[2016-07-08 09:48] LABS: MCHC 34.3 g/dl (32.0-36.0); MEAN CELL VOLUME 84.3 fl (80-96); MEAN PLT VOLUME 6.3 fl (7.5-11.1); PLATELET COUNT 247 K/MM3 (134-434); RDW 13.9 % (11.6-15.6); WHITE BLOOD COUNT 7.6 K/mm3 (4.0-10.0)
[2016-07-08 10:05] LABS: CALCIUM 7.9 mg/dl (8.4-10.2); CREATININE 0.5 mg/dl (0.6-1.3)
--- NOTE | 2016-07-08 11:01 | OP ---
DATE OF OPERATION: 07/07/2016 PREOPERATIVE DIAGNOSIS: Degenerative joint disease, right hip. POSTOPERATIVE DIAGNOSIS: Degenerative joint disease, right hip. PROCEDURE: Right total hip replacement with robotic assisted navigation (Makoplasty). SURGICAL ATTENDING: Charles Longo M.D. [employer]D SECURITY ARCHITECT: Franca Joseph ANESTHESIA: Regional and spinal. CLOSURE: A 56 acetabular cup with acetabular screws, a number 7 femoral stem, a +4, 36-mm head, number 1 Vicryl to capsule and for fascia, 0 and 2-0 subcutaneous and 3-0 Monocryl subcuticular with skin glue for skin. COMPLICATIONS: None. CONDITION: To recovery room in stable condition. DESCRIPTION OF OPERATIVE PROCEDURE: The patient was taken to the operating room on July 07, 2016. Spinal and regional anesthesia was administered by the anesthesiologist. The IV Kefzol was administered prophylactically prior to the case. The patient was placed in the lateral decubitus position with the left side down. All prominences well-padded. The right hip area was prepped and draped in the usual sterile fashion. An EKG lead at the inferior pole of the patella. Three stab incisions are used to drill threaded guide into the iliac wing approximately 2 inches more superior than the ASIS, so this was fastened to the navigation array. Next a posterolateral approach to the hip was used. A 12-cm longitudinal incision over the posterolateral aspect of the greater trochanter was incised. Hemostasis was achieved with Bovie cautery. Sharp dissection was carried down to the level of the fascia, which was opened the entire length of the incision, the gluteus monisha fibers were spread, exposing greater trochanter. The superior 1/3 of the insertion was transected to take pressure off the sciatic nerve. Short external rotators were detached off the insertion of the greater trochanter and peeled off the capsule. A capsulotomy was then performed in a way that would allow us to close it at the end of the operation. A checkpoint was placed in the greater trochanter. Preoperative limb lengths and offset were measured using the navigation device. Next, the hip was dislocated, and osteotomized at the appropriate level as directed by the navigation device. Anterior, posterior retractors were applied, exposing the acetabulum. Circumferential labral debridement was performed. An acetabular checkpoint was then malleted into place. The acetabulum was registered with the Navigation device, and excellent registration was obtained, and confirmed by popping the bubbles. The acetabulum was then reamed using a 53 reamer and a number 54 cup, achieved good stability. A polyethylene liner was applied. Next, attention was directed to proximal femur. This was opened with a box chisel and intramedullary awl and then serial approaches were malleted into place until a number 7 stem achieved a good fit and fill. A trial reduction achieved equal limb lengths. However, during reduction, it appeared the acetabular component had shifted and was not stable in the acetabulum. This necessitated removing the femoral component, and the acetabular component was visualized and found to have completely shifted in position and was now retroverted. Acetabular component was then removed. Inspection of the acetabulum revealed no obvious fractures. We therefore went back to a 50 reamer and deepened her and serial reamed up to a 56, which is what got good bite on the acetabulum; however, this caused some penetration of the medial wall, the surrounding wall was becoming thinner, we could not make it larger. Also normal version in the case is usually about 20 degrees; with that, we did not have great coverage of the cup posteriorly due to lack of bone. Essentially, I felt it necessary to use some less version in order to gain further stability of the cup, which it did. I used adjuvant screw fixation in the superior and posterior quadrants in order to further fixate the cup. The cup was found to be stable. A polyethylene liner was applied. The femoral stem was re-malleted down into its appropriate position in the femoral canal. Due to the medialization, a +4 femoral head was needed. Trial reduction revealed equal limb lengths to the contralateral side, and good stability throughout range of motion, and good stability of the acetabular and femoral components. Hip was irrigated out with copious amounts of irrigation. Vancomycin powder was applied into the joint. The capsule was closed using number 1 Vicryl, number 1 and 0 Vicryl was used to close fascia, and 2-0 for subcutaneous, and 3-0 Monocryl for subcuticular and skin glue for skin. A sterile pressure Aquacel pressure dressing was applied. The patient was awakened from anesthesia and transferred to the recovery room in stable condition. X-rays postoperatively revealed good position of the femoral component. The acetabular component was found to have been medialized with some penetration of the medial wall, and a little less version than normally, but otherwise looked in good position. Patient was transferred to recovery room in stable condition. COMPLICATIONS: None. ESTIMATED BLOOD LOSS: Approximately 500 mL. Yudelka [id number]
[2016-07-08] MEDS ORDERED: PT OWN MED DRAWER 7, Y5N ONE (18:30)
[2016-07-08] MEDS: CELECOXIB 200 MG CAPSULE PO ONE (20:27)
[2016-07-08] MEDS: LACTATED RINGERS SOLUTION 1,000 ML IV SCH (20:28)
[2016-07-08] MEDS: GABAPENTIN 300 MG CAPSULE (FP) PO ONE (20:28)
[2016-07-08] MEDS ORDERED: ZOLPIDEM TARTRATE 5 MG TABLET ONE (21:07)
[2016-07-09] MEDS: ACETAMINOPHEN 325 MG TABLET (FP) PO SCH ×4 (06:15→19:00)
[2016-07-09] MEDS: oxyCODONE HCL 5 MG TABLET PO PRN ×4 (06:16→21:01)
[2016-07-09 08:30] LABS: MCH 28.1 pg (25.7-33.7); MEAN CELL VOLUME 85.3 fl (80-96); MEAN PLT VOLUME 7.4 fl (7.5-11.1); PLATELET COUNT 249 K/MM3 (134-434); RDW 14.4 % (11.6-15.6); WHITE BLOOD COUNT 8.9 K/mm3 (4.0-10.0)
--- NOTE | 2016-07-09 08:54 | PN ---
Progress Note (short form) - Note Progress Note: Ortho Pt seen and examined s/p right betito thr pod #2 Selected Entries 07/09/16 06:40 Temperature 98.0 F Pulse Rate 85 Respiratory 19 Rate Blood Pressure 121/46 Laboratory Tests 07/09/16 06:00 WBC 8.9 Hgb 9.3 L Hct 28.3 L Plt Count 249 dressing c/d/i, calf soft, nt nvi a/p PT dvt ppx pain control d/c home tomorrow if stable
[2016-07-09] MEDS: ASPIRIN 325 MG TABLET PO SCH (08:56)
[2016-07-09] MEDS: MULTIVITAMINS (DAILY MVI) TABLET (FP) PO SCH (10:00)
[2016-07-09] MEDS: SENNOSIDES/DOCUSATE COMBO (SENNA PLUS) TABLET (UD) PO SCH ×2 (10:56→21:01)
[2016-07-09] MEDS: FERROUS SO4 325 MG TABLET (FP) PO SCH (10:56)
[2016-07-09] MEDS: PANTOPRAZOLE 40 MG TABLET (FP) PO SCH (10:56)
[2016-07-09] MEDS: GABAPENTIN 300 MG CAPSULE (FP) PO SCH ×2 (10:56→21:02)
[2016-07-10] MEDS: oxyCODONE HCL 5 MG TABLET PO PRN ×2 (03:00→07:30)
[2016-07-10] MEDS: ACETAMINOPHEN 325 MG TABLET (FP) PO SCH ×2 (06:23)
[2016-07-10] MEDS: ASPIRIN 325 MG TABLET PO SCH (08:00)
--- NOTE | 2016-07-10 08:26 | PN ---
Progress Note (short form) - Note Progress Note: Ortho Pt seen and examined s/p right betito thr pod #3 Selected Entries 07/10/16 06:00 Temperature 98.7 F Pulse Rate 82 Respiratory 19 Rate Blood Pressure 119/47 Laboratory Tests 07/09/16 06:00 WBC 8.9 Hgb 9.3 L Hct 28.3 L Plt Count 249 dressing c/d/i, calf soft, nt nvi a/p PT dvt ppx pain control d/c home today f/u in 1 week
--- NOTE | 2016-07-10 08:27 | DS ---
Physical Examination Vital Signs: Vital Signs Temperature 98.7 F 07/10/16 06:00 Pulse Rate 82 07/10/16 06:00 Respiratory Rate 19 07/10/16 07:44 Blood Pressure 119/47 07/10/16 06:00 O2 Sat by Pulse Oximetry (%) 93 L 07/10/16 07:44 Labs: CBC, BMP 07/09/16 06:00 07/08/16 09:42 Discharge Summary Reason For Visit: OSTEOARTHRITIS Procedures: Principal: s/p right betito thr Hospital Course: admitted fro elective right betito thr, developed post-op anemia- transfused 1 unit and has been stable since, stable for d/c Condition: Good - Instructions Diet, Activity, Other Instructions: Post-op Instructions-Total Hip Replacement Call the office for a follow-up appointment in 1 week - [phone] Aspirin 325mg daily for 6 weeks. Pain medication was sent into your pharmacy. Apply Graduated Compression Stockings (TEDs) to both lower extremities- remove daily for hygiene ONLY Apply Sequential Compression Device (SCDs) to both Lower extremities remove for PT and hygiene ONLY Apply cold packs to affected area for 15 minutes every 2 hours. Physical Therapist will come to your home for the first 5 days. You will be set up with outpatient PT at your first post-operative visit. Patient may ambulate as tolerated-encourage self care (at least every 2-3 hours while awake) with walker or cane Maintain Aquacel (waterproof) dressing to operative wound (will be removed by surgeon at first office visit) Shower with Aquacel dressing in place-if Aquacel integrity compromised, remove and apply dry sterile dressing and notify Orthopedist. DO NOT SHOWER unless Orthopedists approves without Aquacel dressing CONTACT THE OFFICE FOR ANY CHANGE IN YOUR CONDITION (for example-fever greater than 102 degrees,excessive bleeding from operative site, purulent drainage, severe swelling or pain) GO TO THE EMERGENCY ROOM IF THERE IS A MEDICAL EMERGENCY Hip Precautions: * Keep a rolled towel under affected heel while in bed or chair (to keep knee in extension) * Dependent upon approach: * Posterior - do not cross legs; do not sit on low chairs or toilets. * If you have any questions, please do not hesitate to call the office - . Referrals: Charles Longo MD [Staff Physician] - Disposition: HOME - Home Medications Comprehensive Discharge Medication List: Ambulatory Orders Aspirin [ASA -] 325 mg PO DAILY@0800 tablet 04/04/16 Omeprazole 10 mg PO DAILY 04/24/16 FENTANYL 100mcg PATCH [DURAGESIC 100mcg PATCH -] 1 each TD Q72H 07/06/16 Ferrous Sulfate 325 mg PO DAILY 07/06/16 Oxycodone HCl/Acetaminophen [Percocet 5-325 mg Tablet -] 1 - 2 tab PO Q6H #50 tab MDD 8 07/07/16
[2016-07-10 08:38] LABS: MCH 28.3 pg (25.7-33.7); MCHC 33.1 g/dl (32.0-36.0); MEAN CELL VOLUME 85.5 fl (80-96); MEAN PLT VOLUME 7.2 fl (7.5-11.1); PLATELET COUNT 271 K/MM3 (134-434); RDW 14.6 % (11.6-15.6); WHITE BLOOD COUNT 10.1 K/mm3 (4.0-10.0)
[2016-07-10] MEDS: SENNOSIDES/DOCUSATE COMBO (SENNA PLUS) TABLET (UD) PO SCH (09:52)
[2016-07-10] MEDS: FERROUS SO4 325 MG TABLET (FP) PO SCH (09:52)
[2016-07-10] MEDS: GABAPENTIN 300 MG CAPSULE (FP) PO SCH (09:52)
[2016-07-10] MEDS: PANTOPRAZOLE 40 MG TABLET (FP) PO SCH (09:52)
[2016-07-10] MEDS: MULTIVITAMINS (DAILY MVI) TABLET (FP) PO SCH (09:53)
[2016-07-10] MEDS ORDERED: oxyCODONE HCL 5 MG TABLET ONE (12:46)
[2016-07-10 14:04] VITALS: BP 123/41; PULSE 90; TEMP 98.3
--- NOTE | 2016-07-11 11:16 | PATH ---
Surgical Pathology Report Patient Name: ARMINDA CIFUENTES Med. Rec. #: [id number] /Age/Gender: 1935 (Age: 81) / F Account: [id number] Location: [facility] MED-SURG Taken: 07/07/2016 Received: 07/07/2016 Reported: 07/11/2016 Physicians: Charles Longo M.D. Specimen(s) Received RIGHT FEMORAL HEAD Clinical History Right hip osteoarthritis Final Diagnosis BONE, RIGHT FEMORAL HEAD, REPLACEMENT: DEGENERATIVE JOINT DISEASE. Electronically Signed Steve Coronado M.D. Gross Description Received in formalin, labeled "right femoral head," is a 4.5 x 4.5 x 4.3 cm. femoral head with a 0.8 cm in length portion of femoral neck attached. The margin of resection is smooth. No areas of eburnation are identified. The articular surface is mccullough-yellow and focally nodular and granular. The underlying trabecular bone is yellow and hard. A marketing representative section is submitted in one cassette, following decalcification. 07/10/2016 [facility]07/10/2016
== END 2016-07-10 15:10 | disposition home health service (06) | DRG 470 ==
LOC: FM/S 06:01
PROVIDERS: ADMIT Orthopaedic Surgery; ATTEND Orthopaedic Surgery
PROC: 8E0X0CZ Robotic Assisted Procedure of Upper Extremity, Open Approach (ICD-10-PCS; 2016-07-07)
PROC: 30233N1 Transfusion of Nonautologous Red Blood Cells into Peripheral Vein, Percutaneous Approach (ICD-10-PCS; 2016-07-07)
PROC: 0SR90JZ Replacement of Right Hip Joint with Synthetic Substitute, Open Approach (ICD-10-PCS; principal; 2016-07-07 08:00)
DX: M16.11 Unilateral primary osteoarthritis, right hip (principal); D64.9 Anemia, unspecified; I10 Essential (primary) hypertension; E78.5 Hyperlipidemia, unspecified
CPT/HCPCS: 36415; 36430; 73502-TC-RT; 80048; 85027; 86850; 86900; 86901; 86922; 88304-TC; 88311-TC; 94010; 94760; 97116-GP; P9038; P9058

== ENCOUNTER 2016-11-07 08:23 | Day surgery (SDC) | payer OTHER ==
[2016-11-06 14:55] VITALS: BMI 24.0
[2016-11-07] MEDS ORDERED: ceFAZolin SODIUM 1 GM VIAL ONE (09:08)
[2016-11-07] MEDS ORDERED: ceFAZolin SODIUM 1 GM VIAL IVPB ONE (09:15)
[2016-11-07 10:34] VITALS: TEMP 97.8
[2016-11-07 11:42] VITALS: BP 144/62; PULSE 65
--- NOTE | 2016-11-08 11:03 | PATH ---
Surgical Pathology Report Patient Name: ARMINDA CIFUENTES [facility]. Rec. #: [id number] /Age/Gender: 1935 (Age: 81) / F Account: [id number] Location: [facility]-ENDOSCOPY Taken: 11/07/2016 Received: 11/07/2016 Reported: 11/08/2016 Physicians: Fred Poon M.D. Specimen(s) Received A: BX CECAL POLYP B: BX MID TRANSVERSE COLON C: PROXIMAL POLYP SIGMOID Clinical History Rectal bleeding, screening Colon polyps, internal hemorrhoids Final Diagnosis A. COLON, CECUM, POLYP, POLYPECTOMY: FRAGMENTS OF TUBULAR ADENOMA. B. COLON, MID TRANSVERSE, POLYP x2, BIOPSY: FRAGMENTS OF TUBULAR ADENOMA (x4). C. COLON, PROXIMAL SIGMOID, POLYP, POLYPECTOMY: TUBULAR ADENOMA. Electronically Signed Kailash Cardona M.D. Gross Description A. Received in formalin, labeled "cecal polyp" are 4 mccullough, irregular portions of soft tissue ranging from 0.3-0.4 cm in greatest dimension. The specimens are submitted in toto in one cassette. B. Received in formalin, labeled "biopsy mid transverse polyp" are 3 mccullough, irregular portions of soft tissue ranging from 0.2-0.3 cm in greatest dimension. The specimens are submitted in toto in one cassette. C. Received in formalin, labeled "proximal sigmoid polyp" is a mccullough, polypoid portion of soft tissue measuring 0.5 cm in greatest dimension. The specimen is submitted in toto in one cassette. 11/07/201611/07/2016
== END 2016-11-07 12:07 | disposition home or self-care (01) ==
LOC: JASU-ENDO 08:23
PROVIDERS: ATTEND Internal Medicine Gastroenterology
PROC: 0DBN8ZX Excision of Sigmoid Colon, Via Natural or Artificial Opening Endoscopic, Diagnostic (ICD-10-PCS; 2016-11-07)
PROC: 0DBL8ZX Excision of Transverse Colon, Via Natural or Artificial Opening Endoscopic, Diagnostic (ICD-10-PCS; 2016-11-07)
PROC: 0DBH8ZX Excision of Cecum, Via Natural or Artificial Opening Endoscopic, Diagnostic (ICD-10-PCS; principal; 2016-11-07 10:00)
DX: D12.0 Benign neoplasm of cecum (principal); D12.5 Benign neoplasm of sigmoid colon; D12.3 Benign neoplasm of transverse colon; K64.8 Other hemorrhoids; K63.89 Other specified diseases of intestine
CPT/HCPCS: 88305-TC

== ENCOUNTER 2018-01-08 11:19 | Emergency (ER) | payer OTHER ==
[2018-01-08 11:29] VITALS: BMI 24.3
--- NOTE | 2018-01-08 11:47 | PDOC ---
History of Present Illness - General Chief Complaint: Weakness Stated Complaint: Weakness Time Seen by Provider: 01/08/18 11:42 History Source: Patient - History of Present Illness Timing/Duration: other Associated Symptoms: denies: fever/chills, headaches, nausea/vomiting, weakness Past History - Past Medical History Allergies/Adverse Reactions: Allergies Allergy/AdvReac Type Severity Reaction Status Date / Time No Known Allergies Allergy Verified 07/07/16 07:20 Home Medications: Ambulatory Orders Omeprazole 10 mg PO DAILY 04/24/16 Amlodipine Besylate 5 mg PO DAILY 11/06/16 Oxycodone HCl/Acetaminophen [Percocet 5-325 mg Tablet] 1 - 2 tab PO Q6H PRN MDD 8 11/06/16 Zolpidem Tartrate 10 mg PO HS 11/06/16 Atorvastatin Ca [Lipitor] 20 mg PO HS 01/08/18 Gabapentin 300 mg PO DAILY 01/08/18 Lidocaine 5% Patch [Lidoderm Patch -] 1 patch TP DAILY #7 patch 01/08/18 Lisinopril 5 mg PO DAILY 01/08/18 Tramadol HCl 50 mg PO Q6H #15 tablet MDD 200 mg 01/08/18 Anemia: No Asthma: No Cancer: No Cardiac Disorders: No CVA: No COPD: No CHF: No Dementia: No Diabetes: No GI Disorders: Yes (GERD,CONSTIPATION) Disorders: No HTN: Yes Hypercholesterolemia: No Liver Disease: No Psychiatric Problems: Yes (depression) Seizures: No Thyroid Disease: No - Surgical History Abdominal Surgery: No Appendectomy: Yes Cardiac Surgery: No Cholecystectomy: No Lung Surgery: No Neurologic Surgery: No Orthopedic Surgery: Yes (LEFT LEG FX, ORIF IN [place] YEARS AGO) - Immunization History Immunization Up to Date: Yes - Suicide/Smoking/Psychosocial Hx Smoking Status: No Smoking History: Never smoked Have you smoked in the past 12 months: No Number of Cigarettes Smoked Daily: 0 Hx Alcohol Use: No Drug/Substance Use Hx: No Substance Use Type: None Hx Substance Use Treatment: No Review of Systems - Review of Systems Constitutional: No: Chills, Fever Musculoskeletal: Yes: Back Pain. No: Neck Pain Neurological: Yes: Numbness. No: Headache, Tingling, Weakness, Dizziness *Physical Exam - Vital Signs Last Vital Signs Temp Pulse Resp BP Pulse Ox 98.3 F 83 16 106/49 L 95 01/08/18 11:26 01/08/18 11:26 01/08/18 11:26 01/08/18 11:26 01/08/18 11:26 - Physical Exam General Appearance: Yes: Appropriately Dressed. No: Apparent Distress HEENT: positive: Normal Voice Neck: positive: Supple Respiratory/Chest: negative: Respiratory Distress Gastrointestinal/Abdominal: positive: Soft. negative: Tender Rectal Exam: positive: other (anal tone intact) Musculoskeletal: negative: CVA Tenderness, Vertebral Tenderness Extremity: positive: Normal Inspection Integumentary: positive: Dry, Warm Neurologic: positive: Fully Oriented, Alert, Normal Mood/Affect, Motor Strength 5/5, Finger to Nose, Other (decerased sensation to lower abd and LE compared to upper body, no LE weakness detected, anal tone intact). negative: Facial Droop , Confused, Disoriented ED Treatment Course - LABORATORY CBC & Chemistry Diagram: 01/08/18 11:42 01/08/18 12:00 - RADIOLOGY Radiology Studies Ordered: Category Date Time Status CHEST X-RAY PORTABLE* [RAD] Stat Radiology 01/08/18 11:42 Ordered Medical Decision Making - Medical Decision Making 82 yo F, anxiety, HTN, HLD, gastritis, asthma, s/p L hip replacement 04/25, neck , back pain, s/p MRI 05/26 with chronic compression fractures w/ multilevel disc bulge and slight impingement on R L2 nerve root, deemed not to be surgical candidate per NS in 2017 and referred to pain management, here w/ complaint of intermittent numbness below waist x 2 months, worsening now. No back pain and able to ambulate. No focal weakness, saddle anesthesia or B/B incontinence. Denies UE involvement, VINCENT, dizziness, visual changes, n/v. States she did not want to come to ED earlier See exam R/o cauda equina, less likely CVA -MRI -[facility] -labs -anticipate admission 01/08/18 17:16 MRI today mostly unchanged from MRI in 2017, with the exception that there is now mention of b/l L2 nerve impingement (vs only R L2 involvement on prior imaging). There is also now mild degenerative central spinal canal stenosis. Pt currently c/o her usual lower back pain. Pain control in progress. Will discuss dispo w/ PMD 01/08/18 17:[address] Hoffmann, pt's PMD, who was informed of MRI results today , states there is no indication for neurosurgical consult as MRI largely unchanged. States if pain improved and patient is able to be discharged, should follow-up with him and given pain management referral 01/08/18 18:29 Pt reports improvement in pain and states she feels good enough to be discharged. Son now at bedside and feels safe taking patient home. Prescription for tramadol and lidoderm sent to pharmacy. Patient instructed to follow up with Dr. Hoffmann this week. Also given referral to Dr. Hughes of pain management, who saw patient during admission in 2017 01/08/18 18:43 *DC/Admit/Observation/Transfer Diagnosis at time of Disposition: Lower extremity numbness - Discharge Dispostion Disposition: HOME Condition at time of disposition: Improved - Prescriptions Prescriptions: Lidocaine 5% Patch [Lidoderm Patch -] 1 patch TP DAILY #7 patch Tramadol HCl 50 mg PO Q6H #15 tablet MDD 200 mg - Referrals Referrals: Abner Sarabia MD [Primary Care Provider] - Jacob Azul MD [Staff Physician] - - Patient Instructions Additional Instructions: Your MRI today is largely unchanged from MRI last year and shows old compression fractures and disc bulge at multiple levels. Please take medication as prescribed and follow up with Dr. Sarabia this week. You were also given referral for Dr. Azul of pain management, please call this week for an appointment. If symptoms worsens at home such as lower extremity weakness, you are unable to fee your groin or you start to defecate or urinate on yourself, this is a neurosurgical emergency and you need to return to the ER immediately - Post Discharge Activity
[2018-01-08 12:35] LABS: BASO % 0.5 % (0-2.0); EOS % 0.7 % (0-4.5); HEMATOCRIT 34.1 % (32.4-45.2); HEMOGLOBIN 11.6 GM/dL (10.7-15.3); LYMPH % 19.9 % (8-40); MCH 31.4 pg (25.7-33.7); MCHC 34.1 g/dl (32.0-36.0); MEAN CELL VOLUME 92.1 fl (80-96); MEAN PLT VOLUME 6.9 fl (7.5-11.1); MONO % 11.2 % (3.8-10.2); NEUT % 67.7 % (42.8-82.8); PLATELET COUNT 274 K/MM3 (134-434)
[2018-01-08 12:53] LABS: ALBUMIN 3.8 g/dl (3.4-5.0); ALK PHOS 57 U/L (45-117); ANION GAP 7 MMOL/L (8-16); BILIRUBIN,TOTAL 0.3 mg/dL (0.2-1); BLOOD UREA NITROGEN 12 mg/dL (7-18); CALCIUM 8.7 mg/dL (8.5-10.1); CHLORIDE 99 mmol/L (98-107); CO2 27 mmol/L (21-32); CREATININE 0.6 mg/dL (0.55-1.3); GLUCOSE,RANDOM 107 mg/dL (74-106); POTASSIUM 4.2 mmol/L (3.5-5.1); SGOT/AST 15 U/L (15-37); SGPT/ALT 17 U/L (13-61); SODIUM 132 mmol/L (136-145); TOT PROT 6.9 g/dl (6.4-8.2)
[2018-01-08 12:55] LABS: N-TERMINAL BNP 159.8 pg/ml (5-450)
[2018-01-08 13:14] LABS: INR 1.02 (0.83-1.09)
[2018-01-08 13:24] LABS: URINE APPEARANCE CLEAR; URINE BILIRUBIN NEGATIVE (<2.0 mg/dL); URINE COLOR STRAW; URINE GLUCOSE (UA) NEGATIVE (NEGATIVE); URINE KETONE NEGATIVE (NEGATIVE); URINE LEUK ESTERASE TRACE (NEGATIVE); URINE NITRITE NEGATIVE (NEGATIVE); URINE PROTEIN NEGATIVE (NEGATIVE); URINE UROBILINOGEN NEGATIVE mg/dL (0.2-1.0)
[2018-01-08 13:27] LABS: EPI CELLS RARE /HPF (FEW)
[2018-01-08] MEDS ORDERED: ACETAMINOPHEN INJECTION 100 ML IVPB ONE (16:43)
[2018-01-08] MEDS ORDERED: ACETAMINOPHEN 1000 MG/100 ML VIAL (NON FORMULARY) IVPB ONE (17:20)
[2018-01-08] MEDS ORDERED: traMADol HCL 50 MG TABLET PO ONE (17:49)
[2018-01-08] MEDS ORDERED: traMADol HCL 50 MG TABLET ONE (18:03)
[2018-01-08 18:31] VITALS: BP 156/67; PULSE 65; TEMP 98.8
--- NOTE | 2018-01-09 10:04 | EKG ---
Test Reason : Blood Pressure : / mmHG Vent. Rate : 076 BPM Atrial Rate : 076 BPM P-R Int : 170 ms QRS Dur : 076 ms QT Int : 374 ms P-R-T Axes : 000 019 028 degrees QTc Int : 420 ms POOR DATA QUALITY, INTERPRETATION MAY BE ADVERSELY AFFECTED NORMAL SINUS RHYTHM NORMAL ECG WHEN COMPARED WITH ECG OF 17-MAY-2016 13:11, NO SIGNIFICANT CHANGE WAS FOUND Confirmed by ARTUR CARVALHO MD ([id number]) on 01/09/2018 10:04:04 AM Referred By: Confirmed By:ARTUR CARVALHO MD
== END 2018-01-08 19:20 | disposition home or self-care (01) ==
LOC: JER 11:19
PROC: 3E033NZ Introduction of Analgesics, Hypnotics, Sedatives into Peripheral Vein, Percutaneous Approach (ICD-10-PCS; principal; 2018-01-08)
DX: R20.0 Anesthesia of skin (principal); M51.16 Intervertebral disc disorders with radiculopathy, lumbar region; M48.00 Spinal stenosis, site unspecified; S33.101A Dislocation of unspecified lumbar vertebra, initial encounter; M48.50XD Collapsed vertebra, not elsewhere classified, site unspecified, subsequent encounter for fracture with routine healing; I10 Essential (primary) hypertension; K21.9 Gastro-esophageal reflux disease without esophagitis; F32.9 Major depressive disorder, single episode, unspecified; Z96.642 Presence of left artificial hip joint
CPT/HCPCS: 36415; 70450-TC; 71045-TC-FY; 72148-TC; 80053; 81003; 81015; 82550; 83690; 83880; 84484; 85025; 85610; 86850; 86900; 86901; 93005; 93010; 96374; 99282-25; J0131

== ENCOUNTER 2018-02-23 17:14 | Observation (INO) | payer OTHER ==
[2018-02-23 17:29] VITALS: BMI 25.0
--- NOTE | 2018-02-23 18:08 | PDOC ---
History of Present Illness - General Chief Complaint: Pain Stated Complaint: CHEST PAIN Time Seen by Provider: 02/23/18 18:07 - History of Present Illness Initial Comments: 02/23/18 18:25 The patient is an 83 year old female with a history of HTN, HLD, GERD, Depression who presents for evaluation of chest pain. The patient reports a 1 day history of intermittent burning chest pain with worsening right sided sharp chest pain radiating to her right neck. She reports persistent symptoms prompting her presentation to the ED for further evaluation. She denies similar symptoms in the past and otherwise denies fevers, chills, SOB, nausea, vomiting, abdominal pain, or changes with urination or bowel movements. Past History - Past Medical History Allergies/Adverse Reactions: Allergies Allergy/AdvReac Type Severity Reaction Status Date / Time No Known Allergies Allergy Verified 02/23/18 17:29 Home Medications: Ambulatory Orders Omeprazole 10 mg PO DAILY 04/24/16 Amlodipine Besylate 5 mg PO DAILY 11/06/16 Oxycodone HCl/Acetaminophen [Percocet 5-325 mg Tablet] 1 - 2 tab PO Q6H PRN MDD 8 11/06/16 Zolpidem Tartrate 10 mg PO HS 11/06/16 Atorvastatin Ca [Lipitor] 20 mg PO HS 01/08/18 Gabapentin 300 mg PO DAILY 01/08/18 Lidocaine 5% Patch [Lidoderm Patch -] 1 patch TP DAILY #7 patch 01/08/18 Lisinopril 5 mg PO DAILY 01/08/18 Anemia: No Asthma: No Cancer: No Cardiac Disorders: No CVA: No COPD: No CHF: No Dementia: No Diabetes: No GI Disorders: Yes (GERD,CONSTIPATION) Disorders: No HTN: Yes Hypercholesterolemia: No Liver Disease: No Psychiatric Problems: Yes (depression) Seizures: No Thyroid Disease: No - Surgical History Abdominal Surgery: No Appendectomy: Yes Cardiac Surgery: No Cholecystectomy: No Lung Surgery: No Neurologic Surgery: No Orthopedic Surgery: Yes (LEFT LEG FX, ORIF IN [place] YEARS AGO) - Immunization History Immunization Up to Date: Yes - Suicide/Smoking/Psychosocial Hx Smoking Status: No Smoking History: Never smoked Have you smoked in the past 12 months: No Number of Cigarettes Smoked Daily: 0 Hx Alcohol Use: No Drug/Substance Use Hx: No Substance Use Type: None Hx Substance Use Treatment: No Review of Systems - Review of Systems Comments:: 02/23/18 18:27 Constitutional: No fevers, chills, fatigue, malaise HEENT: No Rhinorrhea, nasal congestion, visual changes Cardiovascular: Chest pain. No syncope, palpitations, lightheadedness Respiratory: Cough. No SOB, Hemoptysis, Gastrointestinal: No Abdominal pain, Nausea, Vomiting, Constipation, Diarrhea, Melena Genitourinary: No Dysuria, Frequency, Urgency, Hesitancy, Hematuria, Flank pain Musculoskeletal: No Myalgia, arthralgia Skin: No rashes, itching, bruising, pallor Neurologic: No Headache, Dizziness, Numbness, Weakness, or Tingling Psychiatric: No Hallucinations. No SI or HI *Physical Exam - Vital Signs Last Vital Signs Temp Pulse Resp BP Pulse Ox 98 F 80 18 173/68 H 99 02/23/18 17:20 02/23/18 17:20 02/23/18 17:20 02/23/18 17:20 02/23/18 17:20 - Physical Exam Comments: 02/23/18 18:27 General Appearance: Nourished. No Apparent Distress HEENT: No Pharyngeal Erythema, Tonsillar Exudate, Tonsillar Erythema Neck: No Cervical Lymphadenopathy Respiratory/Chest: Lungs Clear, Normal Breath Sounds. No Crackles, Rales, Rhonchi, Wheezing Cardiovascular: Regular Rhythm, Regular Rate. No Murmur, Gallops, Rubs Gastrointestinal/Abdominal: Normal Bowel Sounds, Soft. No Guarding, Rebound, Tenderness Musculoskeletal: No CVA Tenderness Extremity: Normal Capillary Refill Integumentary: Normal Color, Dry, Warm Neurologic: Fully Oriented, Alert, Normal Mood/Affect, Normal Response, Heart Score/ECG Review - History History: Slightly suspicious - Electrocardiogram EKG: Normal - Age Age: >/= 65 - Risk Factors Risk Factors Heart Score: Yes Hx Hypercholesterolemia, Yes Hx Hypertension, Yes Positive family hx of cardiac disease Based on the list above the patient has:: >/=3 risk factors or Hx atherosclerotic disease - Troponin Troponin: </= normal limit - Score Heart Score - Total: 4 #1 ECG reviewed & interpreted by me at: 20:17 ED Treatment Course - LABORATORY CBC & Chemistry Diagram: 02/23/18 18:56 02/23/18 18:56 Medical Decision Making - Medical Decision Making 02/23/18 18:27 The patient is an 83 year old female with a history of HTN, HLD, GERD, Depression who presents for evaluation of chest pain. Differential includes but is not limited to: ACS, Pneumonia, Musculoskeletal, infectious, Metabolic Derangement. Given the patient's history and physical exam, we will obtain a cbc, cmp, troponin, ekg, chest plain film, ua to evaluate further. We treat with pepcid and continue to monitor and reassess while here in the ED. 02/23/18 23:29 CBC, cmp, troponin are unremarkable. Chest plain film is unremarkable. However due to the patient's cardiac risk factors and age, we believe she requires observation admission for further monitoring. We will admit to the hospitalist team for further management. *DC/Admit/Observation/Transfer Diagnosis at time of Disposition: Chest pain Qualifiers: Chest pain type: unspecified Qualified Code(s): R07.9 - Chest pain, unspecified - Discharge Dispostion Condition at time of disposition: Stable Decision to Admit order: Yes - Referrals - Patient Instructions - Post Discharge Activity
[2018-02-23] MEDS ORDERED: FAMOTIDINE 20 MG/50 ML IVPB 20 MG/50 ML MG IVPB ONE ×2 (18:23→18:58)
[2018-02-23 19:06] LABS: BASO % 0.6 % (0-2.0); HEMATOCRIT 34.8 % (32.4-45.2); HEMOGLOBIN 11.8 GM/dL (10.7-15.3); LYMPH % 21.7 % (8-40); MCH 30.9 pg (25.7-33.7); MCHC 33.8 g/dl (32.0-36.0); MEAN CELL VOLUME 91.4 fl (80-96); MEAN PLT VOLUME 6.8 fl (7.5-11.1); MONO % 8.9 % (3.8-10.2); NEUT % 67.8 % (42.8-82.8); PLATELET COUNT 290 K/MM3 (134-434)
[2018-02-23 19:32] LABS: URINE APPEARANCE CLEAR; URINE BILIRUBIN NEGATIVE (<2.0 mg/dL); URINE COLOR COLORLESS; URINE GLUCOSE (UA) NEGATIVE (NEGATIVE); URINE KETONE NEGATIVE (NEGATIVE); URINE LEUK ESTERASE TRACE (NEGATIVE); URINE NITRITE NEGATIVE (NEGATIVE); URINE PROTEIN NEGATIVE (NEGATIVE); URINE UROBILINOGEN NEGATIVE mg/dL (0.2-1.0)
[2018-02-23 19:35] LABS: ALBUMIN 3.7 g/dl (3.4-5.0); ALK PHOS 60 U/L (45-117); ANION GAP 10 MMOL/L (8-16); BILIRUBIN,TOTAL 0.2 mg/dL (0.2-1); BLOOD UREA NITROGEN 7 mg/dL (7-18); CALCIUM 8.7 mg/dL (8.5-10.1); CHLORIDE 101 mmol/L (98-107); CO2 24 mmol/L (21-32); CREATININE 0.6 mg/dL (0.55-1.3); GLUCOSE,RANDOM 95 mg/dL (74-106); POTASSIUM 3.7 mmol/L (3.5-5.1); SGOT/AST 13 U/L (15-37); SGPT/ALT 17 U/L (13-61); SODIUM 135 mmol/L (136-145); TOT PROT 7.2 g/dl (6.4-8.2)
[2018-02-23 19:56] LABS: URINE BACTERIA RARE /hpf (NONE SEEN)
--- NOTE | 2018-02-23 20:18 | PDOC ---
Attending Attestation - Resident Resident Name: Balwinder Madera - ED Attending Attestation I have performed the following: I have examined & evaluated the patient, The case was reviewed & discussed with the resident, I agree w/resident's findings & plan, Exceptions are as noted - HPI HPI: 02/23/18 20:19 Ms Winslow is an 83 yo F who presents to the ER with a complaint of chest pain She has a h/o HTN, HLD, GERD She reports a 1 day history of intermittent burning chest pain with worsening right sided sharp chest pain radiating to her right neck. No prior episodes like this No fevers, chills, SOB, nausea, vomiting, abdominal pain. - Physicial Exam PE: 02/23/18 20:23 GENERAL: The patient is in no acute distress. HEAD: Normal with no signs of trauma. LUNGS: Breath sounds equal, clear to auscultation bilaterally. No wheezes, and no crackles. HEART:Regular rate and rhythm, normal S1 and S2 without murmur, rub or gallop. ABDOMEN: Soft, nontender, normoactive bowel sounds. No guarding, no rebound. No masses palpable. EXTREMITIES: Normal range of motion, no edema. No clubbing or cyanosis. No erythema, or tenderness. NEUROLOGICAL: Cranial nerves II through XII grossly intact. Normal speech. No focal neurological deficits. SKIN: Warm, Dry, normal turgor, no rashes or lesions noted. - Medical Decision Making 02/23/18 20:31 Selected Entries 02/23/18 19:26 Temperature 97.9 F Pulse Rate [ 73 Right Radial] Blood Pressure 145/59 L [Right Arm] O2 Sat by Pulse 98 Oximetry (%) Laboratory Tests 02/23/18 02/23/18 02/23/18 18:56 18:56 19:10 WBC 6.0 Hgb 11.8 Hct 34.8 Plt Count 290 BUN 7 Creatinine 0.6 Creatine Kinase 77 Troponin I < 0.02 Ur Leukocyte Esterase Trace Urine WBC (Auto) 3 EKG- Twelve-lead EKG was performed and reviewed by me. There is normal sinus rhythm with a normal rate. The axis is normal. The intervals are normal. There are no ST or T wave abnormalities. Impression: Normal twelve-lead EKG HEART SCORE - [address] on observation 02/23/18 20:32 Heart Score/ECG Review - History History: Moderately suspicious - Electrocardiogram EKG: Normal - Age Age: >/= 65 - Risk Factors Risk Factors Heart Score: Yes Hx Hypercholesterolemia, Yes Hx Hypertension Based on the list above the patient has:: 1-2 risk factors - Troponin Troponin: </= normal limit - Score Heart Score - Total: 4
--- NOTE | 2018-02-23 20:30 | HP ---
CHIEF COMPLAINT:Burning pain in right breast , numbness and weakness all body PCP:DR Paula Levine HISTORY OF PRESENT ILLNESS: The patient is an 83 year old female with a history of HTN, HLD, GERD, Depression who presents for evaluation of chest pain. The patient reports a 1 day history of intermittent burning chest pain with worsening right sided sharp chest pain radiating to her right neck. She reports persistent symptoms prompting her presentation to the ED for further evaluation. She denies similar symptoms in the past and otherwise denies fevers, chills, SOB, nausea, vomiting, abdominal pain, or changes with urination or bowel movements. ER course was notable for: (1)cbc, cmp (2)CXR (3)US breast, US abdomen Recent Travel:denies PAST MEDICAL HISTORY: HTN, HLD, GERD, Depression PAST SURGICAL HISTORY: Appendectomy, B/L hip replacement, ORIF Social History: Smoking:denies Alcohol:denies Drugs: denies Family History:no contributory Allergies No Known Allergies Allergy (Verified 02/23/18 17:29) HOME MEDICATIONS: Home Medications Medication Instructions Recorded Omeprazole 10 mg PO DAILY 04/24/16 Amlodipine Besylate 5 mg PO DAILY 11/06/16 Oxycodone HCl/Acetaminophen 1 - 2 tab PO Q6H PRN MDD 8 11/06/16 [Percocet 5-325 mg Tablet] Zolpidem Tartrate 10 mg PO HS 11/06/16 Atorvastatin Ca [Lipitor] 20 mg PO HS 01/08/18 Gabapentin 300 mg PO DAILY 01/08/18 Lidocaine 5% Patch [Lidoderm Patch 1 patch TP DAILY #7 patch 01/08/18 -] Lisinopril 5 mg PO DAILY 01/08/18 REVIEW OF SYSTEMS CONSTITUTIONAL: Absent: fever, chills, diaphoresis, generalized weakness, malaise, loss of appetite, weight change HEENT: Absent: rhinorrhea, nasal congestion, throat pain, throat swelling, difficulty swallowing, mouth swelling, ear pain, eye pain, visual changes CARDIOVASCULAR: Absent: chest pain, syncope, palpitations, irregular heart rate, lightheadedness , peripheral edema RESPIRATORY: Absent: cough, shortness of breath, dyspnea with exertion, orthopnea, wheezing, stridor, hemoptysis GASTROINTESTINAL: Absent: abdominal pain, abdominal distension, nausea, vomiting, diarrhea, constipation, melena, hematochezia GENITOURINARY: Absent: dysuria, frequency, urgency, hesitancy, hematuria, flank pain, genital pain MUSCULOSKELETAL: Absent: myalgia, arthralgia, joint swelling, back pain, neck pain SKIN: Absent: rash, itching, pallor HEMATOLOGIC/IMMUNOLOGIC: Absent: easy bleeding, easy bruising, lymphadenopathy, frequent infections ENDOCRINE: Absent: unexplained weight gain, unexplained weight loss, heat intolerance, cold intolerance NEUROLOGIC: Absent: headache, focal weakness or paresthesias, dizziness, unsteady gait, seizure, mental status changes, bladder or bowel incontinence PSYCHIATRIC: Absent: anxiety, depression, suicidal or homicidal ideation, hallucinations. PHYSICAL EXAMINATION Vital Signs - 24 hr 02/23/18 02/23/18 17:20 19:26 Temperature 98 F 97.9 F Pulse Rate 80 Pulse Rate [ 73 Right Radial] Respiratory 18 Rate Blood Pressure 173/68 H Blood Pressure 145/59 L [Right Arm] O2 Sat by Pulse 99 98 Oximetry (%) GENERAL: AAox3 in AND HEAD: NC/AT EYES: DONAL, EOMI sclera anicteric, conjunctiva clear. ENT: Moist mucous membranes. NECK: Normal range of motion, supple LUNGS: CTA B/L . No wheezes, and no crackles. No accessory muscle use. HEART: Regular rate and rhythm, normal S1 and S2 without murmur, rub or gallop. ABDOMEN: Soft, nontender, not distended, normoactive bowel sounds, RUQ tenderness , Husain positive MUSCULOSKELETAL: Normal range of motion at all joints. No bony deformities or tenderness. No CVA tenderness. LOWER EXTREMITIES: 2+ pulses, warm, well-perfused. No calf tenderness. No peripheral edema. strength 5/5 proximal and distal upper and lower ext. NEUROLOGICAL: Cranial nerves II-XII intact. Normal speech. PSYCHIATRIC: Cooperative. Good eye contact. SKIN: Warm, dry, normal turgor, Laboratory Results - last 24 hr 02/23/18 02/23/18 02/23/18 18:56 18:56 19:10 WBC 6.0 RBC 3.80 Hgb 11.8 Hct 34.8 MCV 91.4 MCH 30.9 MCHC 33.8 RDW 13.0 Plt Count 290 MPV 6.8 L Absolute Neuts (auto) 4.0 Neutrophils % 67.8 Lymphocytes % 21.7 Monocytes % 8.9 Eosinophils % 1.0 Basophils % 0.6 Nucleated RBC % 0 Sodium 135 L Potassium 3.7 Chloride 101 Carbon Dioxide 24 Anion Gap 10 BUN 7 Creatinine 0.6 Creat Clearance w eGFR > 60 Random Glucose 95 Calcium 8.7 Total Bilirubin 0.2 AST 13 L ALT 17 Alkaline Phosphatase 60 Creatine Kinase 77 Troponin I < 0.02 Total Protein 7.2 Albumin 3.7 Urine Color Colorless Urine Appearance Clear Urine pH 8.0 Ur Specific [place] 1.003 L Urine Protein Negative Urine Glucose (UA) Negative Urine Ketones Negative Urine Blood Negative Urine Nitrite Negative Urine Bilirubin Negative Urine Urobilinogen Negative Ur Leukocyte Esterase Trace Urine WBC (Auto) 3 Urine RBC (Auto) None Urine Bacteria Rare CBC, BMP 02/23/18 18:56 02/23/18 18:56 ASSESSMENT/PLAN: The patient is an 83 year old female with a history of HTN, HLD, GERD, Depression who presents for evaluation of chest pain.admitted to obervation to R /O ACS # Atypical Chest pain due to musculo skeleteal , right breat pain ,vs ACS vs PE * R/O ACS * Trop trend * EKG no St , t wave changes * cxr no acute path * US B/L breast * if negative cardia work up as out pt (stress test ) # Biliary cholic pain * RUQ pain with tenderness husain positive * Lab normal * US liver and gallbladder. # Light headedness likely orthostatics * IV fluids * monitor BP * PT # HTN * resume home meds Norvasc 5, Lisinopril 5, pt said she is not taking the norvasc * monitor BP # GERD * Given pepcid in ED * cont Omeprazole 10 mg po daily # Depression cont on any meds sertralin 50 mg po daily # Back pain * chronic with chronic using of percocet * educated about avoiding narcotics and using Tylenol for pain. # Insomnia * Cont zolpidem 10 mg po daily # HLD * cont lipitor 20 mg po daily #FEN * F: 100 CC/hr NS * E : Monitor * N : Low sodium diet # Proph * DVTS : SCDS Both legs , lovenox 40 mg SQ daily # dispo * tele obs Visit type - Emergency Visit Emergency Visit: Yes ED Registration Date: 02/23/18 Care time: The patient presented to the Emergency Department on the above date and was hospitalized for further evaluation of their emergent condition. - New Patient This patient is new to me today: Yes Date on this admission: 02/23/18 - Critical Care Critical Care patient: No
--- NOTE | 2018-02-23 21:46 | PN ---
Teaching Attending Note Name of Resident: Meek Nuñez ATTENDING PHYSICIAN STATEMENT CC: Atypical Chest Pain I saw and evaluated the patient. I reviewed the resident's note and discussed the case with the resident. I agree with the resident's findings and plan as documented. SUBJECTIVE: Seen and examined; please see resident note for further information. She presents with atypical chest pain radiating around her chest in a band-like distribution associated with body-wide parasthesias that relate to her neck, existing lower back pain, and down her arms. She tells me that the pain radiates to her RUQ as well and that the abdomen is painful to palpate. She has had these symptoms on and off for at least 2 months. Nothing makes them better or worse. Never had any CV workup per the son and none is documented here in terms of cath reports, echo, etc. She has multiple CAD risk factors including HTN, HLD, Ethnicity, Atypical Pain in Female. The resident told me that the breast pain itself started after a mamogram aprox a year ago. No ongoing CP and SOB. Denies syncopal sx, etc. Initial workup in the ER is negative. Monitor on medicine service on observation. 10 sys ROS done and negative aside from HPI PMH and PSH reviewed and are as per chart; HTN. HLD, GERD, DJD, Chronic lower back pain, Anxiety FH asked and noncontributory Social hx denies tobacco or EtOH abuse OBJECTIVE: VS, labs, imaging reviewed NAD, resting comfortably in bed, AAO, somewhat anxious RRR s1/2 no mgr Lungs CTAB with sym exp Tender somewhat out of proportion to findings in R-side, ND +BS in 4 quads NC AT EOMI PERRLA Reproducible pain mid-sternum and down to epigastrium and RUQ with some painful palpation down her arm in that distribution. EKG reviewed: NSR with rate 79 and QTc wnl CXR reviewed: No acute disease noted Labs reviewed: CBC, BMP, LFTs unremarkable. Negative troponin x1. UA negative for acute findings. ASSESSMENT AND PLAN: Mrs. Winslow is an 83 y/o HF presenting with very atypical CP involving R- sided breast, abdominal, and chest pain that is reproducible alongside full body parasthesias. No white count or fever with unremarkable cardiac workup so far in a moderate risk patient with no known history of CAD. 1) Atypical Chest Pain in Adult -Monitor on tele, trend troponin, check Echo. If all is negative she likely can have a stress test done as an outpatient, though of course if concern arises can do inpatient +/- CV consultation. She indeed has risk factors but the story is not very suggestive ACS. Ddx includes referred pain from her chronic severe pain issues, parasthesias could be from noncardiac issues, musculoskeletal, or referred biliary colic. Will r/o ACS and investigate other causes. Checking A1c, lipids. -ASA 81mg PO QD for primary prevention. 2) Parasthesias -Not following classic stocking glove w/o h/o DM, full body with an odd distribution. Broad ddx; will test for common issues with B12, TSH, ESR/CRP. Consider further outpatient workup. -She was not taking gabapentin at home (was on med list); restart 3) HTN -Reconcile and continue appropriate home meds 4) HLD -Followup lipid pannel and adjust statin if needed 5) GERD -Could be contributing to sx with #1; reconcile home meds and if other workup negative consider increasing therapy. 6) Anxiety -Reconcile and continue home meds 7) Chronic Back Pain -Reconcile and continue home meds FENA -PO intake encouraged -PRN replete -Regular Diet -As tolerated Full Code
[2018-02-23] MEDS ORDERED: PATIENT'S OWN MEDICATION (NON-FORMULARY) (Zolpidem Tartrate [Zolpidem Tartrate] 10 MG) PO SCH (22:00)
[2018-02-23] MEDS ORDERED: ATORVASTATIN CA 20 MG TABLET (FP) PO SCH (22:00)
[2018-02-23] MEDS ORDERED: SODIUM CHLORIDE 1,000 ML IV SCH (22:00)
[2018-02-23] MEDS ORDERED: ZOLPIDEM TARTRATE 5 MG TABLET ONE (22:07)
[2018-02-23] MEDS ORDERED: ATORVASTATIN CA 10 MG TABLET (FP) ONE (22:08)
[2018-02-23] MEDS ORDERED: ACETAMINOPHEN 325 MG TABLET (FP) PO PRN (22:08)
[2018-02-23] MEDS ORDERED: ZOLPIDEM TARTRATE 5 MG TABLET PO PRN (22:16)
[2018-02-23 23:22] LABS: BILIRUBIN,DIRECT 0.1 mg/dL (0.0-0.2); BILIRUBIN,TOTAL 0.3 mg/dL (0.2-1); LIPASE 169 U/L (73-393)
[2018-02-24] MEDS ORDERED: HEPARIN NA (PORCINE) 5,000 UNITS/ML 1ML VIAL SQ SCH (06:00)
[2018-02-24 06:21] LABS: BASO % 0.7 % (0-2.0); EOS % 1.9 % (0-4.5); HEMATOCRIT 35.7 % (32.4-45.2); HEMOGLOBIN 11.6 GM/dL (10.7-15.3); LYMPH % 26.7 % (8-40); MCH 29.9 pg (25.7-33.7); MCHC 32.5 g/dl (32.0-36.0); MEAN CELL VOLUME 92.2 fl (80-96); MEAN PLT VOLUME 6.7 fl (7.5-11.1); MONO % 9.5 % (3.8-10.2); NEUT % 61.2 % (42.8-82.8); PLATELET COUNT 258 K/MM3 (134-434); RBC 3.87 M/mm3 (3.60-5.2); WHITE BLOOD COUNT 5.5 K/mm3 (4.0-10.0)
[2018-02-24 06:33] LABS: INR 0.99 (0.83-1.09); PROTHROMBIN TIME (PATIENT) 11.7 SEC (9.7-13.0)
[2018-02-24 06:36] LABS: ACTIVATED PTT 27.3 SECONDS (25.2-36.5)
[2018-02-24 06:45] LABS: ALBUMIN 3.5 g/dl (3.4-5.0); ALK PHOS 59 U/L (45-117); ANION GAP 7 MMOL/L (8-16); BILIRUBIN,TOTAL 0.4 mg/dL (0.2-1); BLOOD UREA NITROGEN 6 mg/dL (7-18); CALCIUM 8.9 mg/dL (8.5-10.1); CHLORIDE 105 mmol/L (98-107); CO2 28 mmol/L (21-32); CREATININE 0.6 mg/dL (0.55-1.3); GLUCOSE,RANDOM 103 mg/dL (74-106); MAGNESIUM 2.1 mg/dL (1.8-2.4); PHOSPHOROUS 4.2 mg/dL (2.5-4.9); SGOT/AST 17 U/L (15-37); SGPT/ALT 17 U/L (13-61); SODIUM 139 mmol/L (136-145); TOT PROT 6.8 g/dl (6.4-8.2)
[2018-02-24] MEDS ORDERED: HEPARIN NA (PORCINE) 5,000 UNITS/ML 1ML VIAL ONE (06:58)
[2018-02-24 07:09] VITALS: PULSE 77
[2018-02-24 09:36] VITALS: BP 157/59; TEMP 98.7
[2018-02-24] MEDS ORDERED: LISINOPRIL 5 MG TABLET (FP) ONE (09:43)
[2018-02-24] MEDS ORDERED: LIDOCAINE 5% TOPICAL PATCH ONE (09:43)
[2018-02-24] MEDS ORDERED: LISINOPRIL 5 MG TABLET (FP) PO SCH (10:00)
[2018-02-24] MEDS ORDERED: LIDOCAINE 5% TOPICAL PATCH TP SCH (10:00)
--- NOTE | 2018-02-24 11:13 | DS ---
Physical Examination Vital Signs: Vital Signs Temperature 98.7 F 02/24/18 09:35 Pulse Rate 77 02/24/18 09:35 Respiratory Rate 18 02/24/18 09:35 Blood Pressure 157/59 L 02/24/18 09:35 O2 Sat by Pulse Oximetry (%) 98 02/24/18 09:35 Findings/Remarks: patient complains of R breast pain x 1 year . has chronic numbness in all her body even her face for a while ( few months ) , has experienced 2 episodes of chest burning started form R shoulder and radiated to L shoulder across her chest , then radiated down to her arms and whole body. lasted x 1 min each time. per son, this might have happened in past too. pain in chest was aggravated with upper body movements chronic back and LE pain . PE: NAD , awake , alert and cooperative CV: RRR, NO MRG Lungs: CATB ext : no edema or erythema. TTP everywhere on LE . Lungs: CTAB Abd: sfot, TTP in all quadrants. Neg Husain. Neuro : EOMI, round equal pupils, reactive to light , no facial droop, tongue at mid line , strength 5/5 in all extremities proximall and distally except fro L hip flexion 4/5 due to hip pain. sensation to light touch is decreased over whole body. breast exam: no masses , or skin lesions . tenderness over R breast and R axilla. No LAP in axxilae. MS: TTP over RUE, R chest wall, b/l LE . Labs: CBC, BMP 02/24/18 06:00 02/24/18 06:00 Discharge Summary Reason For Visit: CHEST PAIN Current Active Problems Chest pain (Acute) History of paresthesia (Chronic) Hospital Course: 83 y/o lady with h/o HTN, HLP, anxiety, chronic back pain, and chronic numbness in body who presented with chest pain that radiated to her whole body. at presentation , her VS were stable, and her EKG did not show acute ischemic events. cxray was nL. exam indicated TTP over chest wall and most of body. trop was nL. her pain was thought to be due to MK etiology rather than CV or [place] etiology. she never had stress test or echo. she might need stress and echo as out pt by her primary care doctor. Her R breast pain is chronic , US and mammo can be done as out pt . no masses felt on exam. whole body numbness could not be explained by B12 def as her level was NL. further w/u is indicated as out pt . refer to neuro. of note, due to abd tenderness, US was done to show fatty liver only. this patient might have fibromyalgia . dispo : dc home f/u with PCP and neuro d/w her and her son at bedside Condition: Stable - Instructions Diet, Activity, Other Instructions: you were admitted for chest pain. your work up did nto show that you had a heart attack. the etiology of chest pain is likely from you muscles or joint. please follow with your primary doctor for possible need for stress test continue your home medications . no change made avoid overuse of pain medications you might need US of your right breast due to pain. please be uptodate on your mammograms . ultrasound of the abdomen does not show infection in abdomen please follow with neurologist , Dr. Michael , for your chronic numbness in your body Good luck Referrals: Abner Sarabia MD [Primary Care Provider] - 1 Week Nixon Michael DO [Staff Physician] - - Home Medications Comprehensive Discharge Medication List: Ambulatory Orders Omeprazole 20 mg PO DAILY 04/24/16 Zolpidem Tartrate 10 mg PO HS 11/06/16 Atorvastatin Ca [Lipitor] 20 mg PO HS 01/08/18 Lisinopril 5 mg PO DAILY 01/08/18 Aspirin 81 mg PO DAILY 02/24/18 Hydrocodone/Acetaminophen [Hydrocodone-Acetamin 10-325 mg] 1 tab PO Q6H PRN This patient is new to me today: Yes Date on this admission: 02/24/18 Emergency Visit: Yes ED Registration Date: 02/23/18 Care time: The patient presented to the Emergency Department on the above date and was hospitalized for further evaluation of their emergent condition. Critical Care patient: No - Discharge Referral Referred to [facility] Med P.C.: No
--- NOTE | 2018-02-24 12:45 | EKG ---
Test Reason : Blood Pressure : / mmHG Vent. Rate : 079 BPM Atrial Rate : 079 BPM P-R Int : 168 ms QRS Dur : 080 ms QT Int : 382 ms P-R-T Axes : 020 029 041 degrees QTc Int : 438 ms NORMAL SINUS RHYTHM NORMAL ECG WHEN COMPARED WITH ECG OF 08-JAN-2018 12:10, NO SIGNIFICANT CHANGE WAS FOUND Confirmed by Frederick Wallis ([id number]) on 02/24/2018 12:45:13 PM Referred By: Confirmed By:Frederick Wallis
== END 2018-02-24 11:37 | disposition home or self-care (01) ==
LOC: JER 17:14 → JERBED 20:35
PROVIDERS: ADMIT Internal Medicine; ATTEND Internal Medicine
PROC: 3E033GC Introduction of Other Therapeutic Substance into Peripheral Vein, Percutaneous Approach (ICD-10-PCS; principal; 2018-02-23)
PROC: 3E0337Z Introduction of Electrolytic and Water Balance Substance into Peripheral Vein, Percutaneous Approach (ICD-10-PCS; 2018-02-23)
PROC: 3E013GC Introduction of Other Therapeutic Substance into Subcutaneous Tissue, Percutaneous Approach (ICD-10-PCS; 2018-02-23)
DX: R07.89 Other chest pain (principal); K80.50 Calculus of bile duct without cholangitis or cholecystitis without obstruction; R42 Dizziness and giddiness; I10 Essential (primary) hypertension; K21.9 Gastro-esophageal reflux disease without esophagitis; F32.9 Major depressive disorder, single episode, unspecified; E78.5 Hyperlipidemia, unspecified; M54.9 Dorsalgia, unspecified; G47.00 Insomnia, unspecified; R20.2 Paresthesia of skin; G89.29 Other chronic pain; F41.9 Anxiety disorder, unspecified
CPT/HCPCS: 36415; 71045-TC-FY; 76705-TC; 80053; 81003; 81015; 82150; 82247; 82248; 82550; 82607; 82746; 83036; 83690; 83735; 84100; 84443; 84484; 85025; 85610; 85651; 85730; 86140; 93005; 93010; 96365; 96372; 99283-25; G0378; J1644; J7030

== ENCOUNTER 2018-12-04 11:14 | Emergency (ER) | payer OTHER ==
[2018-12-04 11:22] VITALS: BMI 25.5
[2018-12-04] MEDS ORDERED: ONDANSETRON 4 MG/2 ML VIAL IVPUSH ONE (12:10)
[2018-12-04] MEDS ORDERED: ACETAMINOPHEN 1000 MG/100 ML VIAL (NON FORMULARY) IVPB ONE (12:10)
[2018-12-04] MEDS ORDERED: SODIUM CHLORIDE 1,000 ML IV STA (12:10)
--- NOTE | 2018-12-04 12:10 | PDOC ---
History of Present Illness - General Chief Complaint: Pain Stated Complaint: ABD PAIN Time Seen by Provider: 12/04/18 11:49 History Source: Patient Exam Limitations: No Limitations Past History - Past Medical History Allergies/Adverse Reactions: Allergies Allergy/AdvReac Type Severity Reaction Status Date / Time No Known Allergies Allergy Verified 12/04/18 11:22 Home Medications: Ambulatory Orders Amlodipine Besylate [Norvasc -] 5 mg PO BID 12/04/18 Aspirin [Ecotrin] 81 mg PO DAILY 12/04/18 Atorvastatin Ca [Lipitor] 20 mg PO HS 12/04/18 Duloxetine HCl [Cymbalta] 20 mg PO DAILY 12/04/18 Gabapentin [Neurontin] 300 mg PO BID 12/04/18 Pantoprazole Sodium [Protonix] 40 mg PO DAILY 12/04/18 Anemia: No Asthma: No Cancer: No Cardiac Disorders: No CVA: No COPD: No CHF: No Dementia: No Diabetes: No GI Disorders: Yes (GERD,CONSTIPATION) Disorders: No HTN: Yes Hypercholesterolemia: Yes Liver Disease: No Psychiatric Problems: Yes (depression) Seizures: No Thyroid Disease: No - Surgical History Abdominal Surgery: No Appendectomy: Yes Cardiac Surgery: No Cholecystectomy: No Lung Surgery: No Neurologic Surgery: No Orthopedic Surgery: Yes (LEFT LEG FX, ORIF IN [place] YEARS AGO) - Immunization History Immunization Up to Date: Yes - Suicide/Smoking/Psychosocial Hx Smoking Status: No Smoking History: Never smoked Have you smoked in the past 12 months: No Number of Cigarettes Smoked Daily: 0 Hx Alcohol Use: No Drug/Substance Use Hx: No Substance Use Type: None Hx Substance Use Treatment: No Review of Systems - Review of Systems Able to Perform ROS?: Yes Comments:: 12/04/18 16:10 CONSTITUTIONAL: Absent: fever, chills, diaphoresis, generalized weakness, malaise, loss of appetite HEENT: Absent: rhinorrhea, nasal congestion, throat pain, throat swelling, difficulty swallowing, mouth swelling, ear pain, eye pain, visual Changes CARDIOVASCULAR: Absent: chest pain, loss of consciousness, palpitations, irregular heart rate, peripheral edema RESPIRATORY: Absent: cough, shortness of breath, dyspnea with exertion, orthopnea, wheezing, stridor, hemoptysis GASTROINTESTINAL: Present: abdominal pain, nausea, vomiting. Absent: diarrhea, constipation, melena, hematochezia GENITOURINARY: Absent: dysuria, frequency, urgency, hesitancy, hematuria, flank pain, genital pain MUSCULOSKELETAL: Absent: myalgia, arthralgia, joint swelling SKIN: Absent: rash, itching, pallor HEMATOLOGIC/IMMUNOLOGIC: Absent: easy bleeding, easy bruising, lymphadenopathy, frequent infections ENDOCRINE: Absent: unexplained weight gain, unexplained weight loss, heat intolerance, cold intolerance NEUROLOGIC: Absent: headache, focal weakness or paresthesias, dizziness, unsteady gait, seizure, mental status changes, bladder or bowel incontinence PSYCHIATRIC: Absent: anxiety, depression, suicidal or homicidal ideation, hallucinations. Is the patient limited Serbian proficient: No *Physical Exam - Vital Signs Last Vital Signs Temp Pulse Resp BP Pulse Ox 98.1 F 83 18 129/59 L 99 12/04/18 11:19 12/04/18 11:19 12/04/18 11:19 12/04/18 11:19 12/04/18 11:19 - Physical Exam Comments: 12/04/18 16:10 GENERAL: Well developed, well nourished. Awake and alert. No acute distress. HEENT: Normocephalic, atraumatic. PERRLA, EOMI. No conjunctival pallor. Sclera are non- icteric. Moist mucous membranes. Oropharynx is clear. NECK: Supple. Full ROM. No JVD. Carotid pulses 2+ and symmetric, without bruits. No thyromegaly. No lymphadenopathy. CARDIOVASCULAR: Regular rate and rhythm. No murmurs, rubs, or gallops. Distal pulses are 2+ and symmetric. PULMONARY: No evidence of respiratory distress. Lungs clear to auscultation bilaterally. No wheezing, rales or rhonchi. ABDOMINAL: TTP of the RUQ, RLQ and suprapubic area. Soft. Non-distended. No rebound or guarding. No organomegaly. Normoactive bowel sounds. MUSCULOSKELETAL Normal range of motion at all joints. No bony deformities or tenderness. No CVA tenderness. EXTREMITIES: No cyanosis. No clubbing. No edema. No calf tenderness. SKIN: Warm and dry. Normal capillary refill. No rashes. No jaundice. NEUROLOGICAL: Alert, awake, appropriate. Cranial nerves 2-12 intact. No deficits to light touch and temperature in face, upper extremities and lower extremities. No motor deficits in the in face, upper extremities and lower extremities. Normoreflexic in the upper and lower extremities. Normal speech. Toes are down- going bilaterally. Gait is normal without ataxia. PSYCHIATRIC: Cooperative. Good eye contact. Appropriate mood and affect. ED Treatment Course - LABORATORY CBC & Chemistry Diagram: 12/04/18 12:15 12/04/18 12:15 Medical Decision Making - Medical Decision Making 12/04/18 16:27 The patient is an 83 y/o F with PMH of HLD, HTN, depression, GERD, presents to the ER today for upper abdominal pain for 2 days. She states that the pain is in the R upper abdomen and made worse after eating. She states she has been nauseous and vomiting this morning. She was seen by Dr. Mccarthy and was sent over for RUQ US and r/o lois. Denies fevers, chills, SOB, chest pain, diarrhea and constipation A/P: Abdominal pain On exam pt with RUQ, RLQ and epigastric pain. (+) guarding. Labs, Urine, IV, Meds, US ordered WBC normal, CMP including lipase normal Urine without infection EKbpm, NSR. Normal intervals and axis. No acute ST-T wave changes. Overall , normal EKG US shows no evidence of cholecystitis Given level of pain will order CTAP with IV contrast Sign out given to SHAHID Pérez. Pending CT results for dispo *DC/Admit/Observation/Transfer Diagnosis at time of Disposition: Abdominal pain Qualifiers: Abdominal location: upper abdomen, unspecified Qualified Code(s): R10.10 - Upper abdominal pain, unspecified - Referrals Referrals: Abner Sarabia MD [Primary Care Provider] - - Patient Instructions - Post Discharge Activity
[2018-12-04] MEDS ORDERED: ACETAMINOPHEN INJECTION 100 ML IVPB ONE (12:27)
[2018-12-04] MEDS ORDERED: ONDANSETRON 4 MG/2 ML VIAL ONE (12:28)
[2018-12-04 12:37] LABS: BASO % 0.7 % (0-2.0); EOS % 0.3 % (0-4.5); HEMATOCRIT 35.3 % (32.4-45.2); LYMPH % 13.4 % (8-40); MCH 31.6 pg (25.7-33.7); MEAN PLT VOLUME 7.1 fl (7.5-11.1); MONO % 8.7 % (3.8-10.2); NEUT % 76.9 % (42.8-82.8); PLATELET COUNT 334 K/MM3 (134-434); RDW 14.6 % (11.6-15.6); WHITE BLOOD COUNT 5.9 K/mm3 (4.0-10.0)
[2018-12-04 12:48] LABS: INR 0.99 (0.83-1.09); PROTHROMBIN TIME (PATIENT) 11.7 SEC (9.7-13.0)
[2018-12-04 12:59] LABS: PH,URINE 6.5 (5.0-8.0); URINE APPEARANCE CLEAR; URINE BILIRUBIN NEGATIVE (NEGATIVE); URINE COLOR YELLOW; URINE GLUCOSE (UA) NEGATIVE (NEGATIVE); URINE KETONE NEGATIVE (NEGATIVE); URINE LEUK ESTERASE NEGATIVE (NEGATIVE); URINE NITRITE NEGATIVE (NEGATIVE); URINE PROTEIN NEGATIVE (NEGATIVE); URINE UROBILINOGEN 0.2 mg/dL (0.2-1.0)
--- NOTE | 2018-12-04 13:16 | PDOC ---
*Physical Exam - Vital Signs Last Vital Signs Temp Pulse Resp BP Pulse Ox 98.1 F 83 18 129/59 L 99 12/04/18 11:19 12/04/18 11:19 12/04/18 11:19 12/04/18 11:19 12/04/18 11:19 - Physical Exam Comments: 12/04/18 13:14 The patient was examined by [SHAHID Tang] under my direct supervision. I personally evaluated the patient. I concur with the above findings and the plan of care. ED Treatment Course - LABORATORY CBC & Chemistry Diagram: 12/04/18 12:15 12/04/18 12:15 - ADDITIONAL ORDERS Additional order review: Laboratory Results 12/04/18 12/04/18 12:15 12:15 PT with INR 11.70 INR 0.99 Urine Color Yellow Urine Appearance Clear Urine pH 6.5 Ur Specific [place] 1.007 L Urine Protein Negative Urine Glucose (UA) Negative Urine Ketones Negative Urine Blood Negative Urine Nitrite Negative Urine Bilirubin Negative Urine Urobilinogen 0.2 Ur Leukocyte Esterase Negative 12/04/18 12:15 RBC 3.80 MCV 93.0 MCHC 34.0 RDW 14.6 MPV 7.1 L Neutrophils % 76.9 D Lymphocytes % 13.4 D Monocytes % 8.7 Eosinophils % 0.3 Basophils % 0.7 - Medications Given in the ED: ED Medications Discontinued Medications Generic Name Dose Route Start Last Admin Trade Name Elaine PRN Reason Stop Dose Admin Acetaminophen 1,000 mg 12/04/18 12:10 12/04/18 12:29 Ofirmev Injection - IVPB 12/04/18 12:11 1,000 mg ONCE ONE Administration Sodium Chloride 1,000 mls @ 1,000 mls/hr 12/04/18 12:10 12/04/18 12:29 Normal Saline - IV 12/04/18 13:09 1,000 mls/hr ASDIR STA Administration Ondansetron HCl 4 mg 12/04/18 12:10 12/04/18 12:29 Zofran Injection IVPUSH 12/04/18 12:11 4 mg ONCE ONE Administration *DC/Admit/Observation/Transfer Diagnosis at time of Disposition: Abdominal pain - Referrals Referrals: Abner Sarabia MD [Primary Care Provider] - - Patient Instructions - Post Discharge Activity
[2018-12-04 13:37] LABS: ALBUMIN 3.8 g/dl (3.4-5.0); BILIRUBIN,TOTAL 0.5 mg/dL (0.2-1); CALCIUM 9.5 mg/dL (8.5-10.1); CREATININE 0.6 mg/dL (0.55-1.3); POTASSIUM 4.8 mmol/L (3.5-5.1); TOT PROT 7.3 g/dl (6.4-8.2)
[2018-12-04 17:16] VITALS: BP 127/63; PULSE 74; TEMP 97.2
[2018-12-04] MEDS ORDERED: PANTOPRAZOLE SODIUM 40 MG VIAL IVPB ONE (17:22)
--- NOTE | 2018-12-04 17:44 | EKG ---
Test Reason : Blood Pressure : / mmHG Vent. Rate : 077 BPM Atrial Rate : 077 BPM P-R Int : 168 ms QRS Dur : 082 ms QT Int : 394 ms P-R-T Axes : 014 021 022 degrees QTc Int : 445 ms NORMAL SINUS RHYTHM NORMAL ECG WHEN COMPARED WITH ECG OF 23-FEB-2018 17:27, NO SIGNIFICANT CHANGE WAS FOUND Confirmed by ARTUR CARVALHO MD ([id number]) on 12/04/2018 5:43:44 PM Referred By: Confirmed By:ARTUR CARVALHO MD
[2018-12-04] MEDS ORDERED: PANTOPRAZOLE SODIUM 40 MG/100 ML BAG IVPB ONE (17:48)
--- NOTE | 2018-12-04 17:49 | PDOC ---
*Physical Exam - Vital Signs Last Vital Signs Temp Pulse Resp BP Pulse Ox 97.2 F L 74 18 127/63 99 12/04/18 17:15 12/04/18 17:15 12/04/18 11:19 12/04/18 17:15 12/04/18 17:15 ED Treatment Course - LABORATORY CBC & Chemistry Diagram: 12/04/18 12:15 12/04/18 12:15 - ADDITIONAL ORDERS Additional order review: Laboratory Results 12/04/18 12/04/18 12/04/18 12:15 12:15 12:15 PT with INR 11.70 INR 0.99 Sodium Potassium Chloride Carbon Dioxide Anion Gap BUN Creatinine Est GFR (CKD-EPI)AfAm Est GFR (CKD-EPI)NonAf Random Glucose Lactic Acid 0.9 Calcium Total Bilirubin AST ALT Alkaline Phosphatase Total Protein Albumin Lipase Urine Color Yellow Urine Appearance Clear Urine pH 6.5 Ur Specific [place] 1.007 L Urine Protein Negative Urine Glucose (UA) Negative Urine Ketones Negative Urine Blood Negative Urine Nitrite Negative Urine Bilirubin Negative Urine Urobilinogen 0.2 Ur Leukocyte Esterase Negative 12/04/18 12:15 PT with INR INR Sodium 136 Potassium 4.8 Chloride 103 Carbon Dioxide 24 Anion Gap 9 BUN 7.0 Creatinine 0.6 Est GFR (CKD-EPI)AfAm 99.07 Est GFR (CKD-EPI)NonAf 85.48 Random Glucose 102 Lactic Acid Calcium 9.5 Total Bilirubin 0.5 AST 34 ALT 21 Alkaline Phosphatase 55 Total Protein 7.3 Albumin 3.8 Lipase 114 Urine Color Urine Appearance Urine pH Ur Specific [place] Urine Protein Urine Glucose (UA) Urine Ketones Urine Blood Urine Nitrite Urine Bilirubin Urine Urobilinogen Ur Leukocyte Esterase 12/04/18 12:15 RBC 3.80 MCV 93.0 MCHC 34.0 RDW 14.6 MPV 7.1 L Neutrophils % 76.9 D Lymphocytes % 13.4 D Monocytes % 8.7 Eosinophils % 0.3 Basophils % 0.7 - Medications Given in the ED: ED Medications Discontinued Medications Generic Name Dose Route Start Last Admin Trade Name Freq PRN Reason Stop Dose Admin Acetaminophen 1,000 mg 12/04/18 12:10 12/04/18 12:29 Ofirmev Injection - IVPB 12/04/18 12:11 1,000 mg ONCE ONE Administration Sodium Chloride 1,000 mls @ 1,000 mls/hr 12/04/18 12:10 12/04/18 12:29 Normal Saline - IV 12/04/18 13:09 1,000 mls/hr ASDIR STA Administration Ondansetron HCl 4 mg 12/04/18 12:10 12/04/18 12:29 Zofran Injection IVPUSH 12/04/18 12:11 4 mg ONCE ONE Administration Medical Decision Making - Medical Decision Making Patient signed out to me by SHAHID Silva pending results of CT A/P CT A/P showed no acute findings; other incidental findings noted Labs and urine unremarkable Findings were discussed with patient's PCP, Dr. Campuzano States possibly this is gastritis; advised to give dose of IV Protonix Patient is already taking PO protonix; advised to continue Protonix for now and have patient f/u with him Results discussed with patient and her son Stable for dc 12/04/18 17:44 *DC/Admit/Observation/Transfer Diagnosis at time of Disposition: Abdominal pain Qualifiers: Abdominal location: upper abdomen, unspecified Qualified Code(s): R10.10 - Upper abdominal pain, unspecified - Discharge Dispostion Disposition: HOME Condition at time of disposition: Stable Decision to Admit order: No - Referrals Referrals: Abner Sarabia MD [Primary Care Provider] - 2 Days - Patient Instructions Printed Discharge Instructions: DI for Abdominal Pain-Adult Additional Instructions: Thank you for choosing [facility]. It was a pleasure taking care of you. There were no acute findings on your CT scan of abdomen/pelvis Possibly this is gastritis Continue Protonix Follow-up with your regular doctor in 2 days Return to the Emergency Department if your symptoms worsen or persist, you have fever, shortness of breath, chest pain, severe abdominal pain, vomiting or other concerning symptoms. - Post Discharge Activity
== END 2018-12-04 17:56 | disposition home or self-care (01) ==
LOC: JER 11:14
PROC: 3E033NZ Introduction of Analgesics, Hypnotics, Sedatives into Peripheral Vein, Percutaneous Approach (ICD-10-PCS; principal; 2018-12-04)
PROC: 3E033GC Introduction of Other Therapeutic Substance into Peripheral Vein, Percutaneous Approach (ICD-10-PCS; 2018-12-04)
PROC: 3E0337Z Introduction of Electrolytic and Water Balance Substance into Peripheral Vein, Percutaneous Approach (ICD-10-PCS; 2018-12-04)
DX: R10.10 Upper abdominal pain, unspecified (principal); E78.5 Hyperlipidemia, unspecified; I10 Essential (primary) hypertension; F32.9 Major depressive disorder, single episode, unspecified; K21.9 Gastro-esophageal reflux disease without esophagitis
CPT/HCPCS: 36415; 74177-TC; 76705-TC; 80053; 81003; 83605; 83690; 85025; 85610; 87086; 93005; 93010; 96361; 96374; 96375; 99283-25; J0131; J7030

== ENCOUNTER 2019-06-10 12:58 | Inpatient (IN) | payer OTHER ==
--- NOTE | 2019-06-10 13:12 | PDOC ---
Rapid Medical Evaluation Time Seen by Provider: 06/10/19 13:00 Medical Evaluation: Allergies Allergy/AdvReac Type Severity Reaction Status Date / Time No Known Allergies Allergy Verified 12/04/18 11:22 06/10/19 13:10 CC: Cough x3 weeks. Currently productive. Dizziness- lightheaded. PE: rhonchi in all carver Orders: CXR, labs, EKG, urine Patient will proceed to ED for further evaluation. 06/10/19 13:11 Discharge Disposition - Diagnosis Chest pain - Referrals - Patient Instructions - Post Discharge Activity
[2019-06-10] MEDS ORDERED: ALBUTEROL SO4 2.5/IPRATROPIUM 0.5 INH SOL 3 ML VIAL.NEB. NEB ONE ×2 (14:02→14:48)
--- NOTE | 2019-06-10 14:04 | PDOC ---
History of Present Illness - General Chief Complaint: Respiratory Stated Complaint: COUGHING/VOMITING Time Seen by Provider: 06/10/19 13:00 History Source: Patient, Family - History of Present Illness Initial Comments: 06/10/19 14:33 Ms. Winslow is an 84 y/o [place]ian speaking woman w/hx HTN, HLD, GERD p/w one day of worsening cough after two weeks of URI symptoms. She is accompanied by her son who assists with history. She reports an episode of generalized weakness, generalized numbness, chest tightness, and lightheadedness today while at home which prompted them to seek ED evaluation. She denies any LOC, head injury, vision changes, palpitations. She denies any travel outside the country, sick contact in daughter in law. She endorses diffuse abdominal pain worse with coughing, alongside x1 nbnb vomiting yesterday as well as today. No hx COPD, asthma, no smoking hx. Past History - Past Medical History Allergies/Adverse Reactions: Allergies Allergy/AdvReac Type Severity Reaction Status Date / Time No Known Allergies Allergy Verified 06/10/19 13:12 Home Medications: Ambulatory Orders Amlodipine Besylate [Norvasc -] 5 mg PO BID 12/04/18 Atorvastatin Ca [Lipitor] 20 mg PO HS 12/04/18 Duloxetine HCl [Cymbalta] 20 mg PO DAILY 12/04/18 Gabapentin [Neurontin] 300 mg PO BID 12/04/18 Lisinopril [Prinivil] 5 mg PO DAILY 06/10/19 Omeprazole 20 mg PO DAILY 06/10/19 Zolpidem Tartrate [Ambien] 10 mg PO HS 06/10/19 Anemia: No Asthma: No Cancer: No Cardiac Disorders: No CVA: No COPD: No CHF: No Dementia: No Diabetes: No GI Disorders: Yes (GERD,CONSTIPATION) Disorders: No HTN: Yes Hypercholesterolemia: Yes Liver Disease: No Psychiatric Problems: Yes (depression) Seizures: No Thyroid Disease: No - Surgical History Abdominal Surgery: No Appendectomy: Yes Cardiac Surgery: No Cholecystectomy: No Lung Surgery: No Neurologic Surgery: No Orthopedic Surgery: Yes (LEFT LEG FX, ORIF IN [place] YEARS AGO) - Immunization History Immunization Up to Date: Yes - Psycho Social/Smoking Cessation Hx Smoking Status: No Smoking History: Never smoked Have you smoked in the past 12 months: No Number of Cigarettes Smoked Daily: 0 Hx Alcohol Use: No Drug/Substance Use Hx: No Substance Use Type: None Hx Substance Use Treatment: No Review of Systems - Review of Systems Able to Perform ROS?: Yes Comments:: 06/10/19 14:38 ROS: GENERAL/CONSTITUTIONAL: Chills, generalized weakness. No fever HEAD, EYES, EARS, NOSE AND THROAT: No change in vision. No ear pain or discharge. No sore throat. CARDIOVASCULAR: Chest tightness, shortness of breath. RESPIRATORY: Cough. No wheezing, or hemoptysis. GASTROINTESTINAL: Nausea, vomiting. No diarrhea or constipation. GENITOURINARY: No dysuria, frequency, or change in urination. MUSCULOSKELETAL: No joint or muscle swelling or pain. No neck or back pain. SKIN: No rash NEUROLOGIC: No headache, vertigo, loss of consciousness, or change in strength/ sensation. ENDOCRINE: No increased thirst. No abnormal weight change HEMATOLOGIC/LYMPHATIC: No anemia, easy bleeding, or history of blood clots. ALLERGIC/IMMUNOLOGIC: No hives or skin allergy. *Physical Exam - Vital Signs Last Vital Signs Temp Pulse Resp BP Pulse Ox 97.8 F 88 16 133/61 99 06/10/19 13:09 06/10/19 13:09 06/10/19 13:06/10/19 13:06/10/19 13:09 - Physical Exam 06/10/19 15:51 PE: GENERAL: Awake, alert, and fully oriented HEAD: No signs of trauma, normocephalic, atraumatic EYES: PERRLA, EOMI, sclera anicteric, conjunctiva clear ENT: Auricles normal inspection, hearing grossly normal, nares patent, oropharynx clear without exudates. Moist mucosa NECK: Normal ROM, supple, no lymphadenopathy, JVD, or masses LUNGS: Diffuse rales. Increased work of breathing. speaks full sentences HEART: Regular rate and rhythm, normal S1 and S2, no murmurs, rubs or gallops, peripheral pulses normal and equal bilaterally. ABDOMEN: Mild diffuse tenderness. Soft, normoactive bowel sounds. No guarding, no rebound. No masses EXTREMITIES : Normal inspection, Normal range of motion, no edema. No clubbing or cyanosis NEUROLOGICAL: Cranial nerves II through XII grossly intact. Normal speech, normal gait, no focal sensorimotor deficits SKIN: Warm, Dry, normal turgor, no rashes or lesions noted Heart Score/ECG Review - History History: Slightly suspicious - Electrocardiogram EKG: Normal - Age Age: >/= 65 - Risk Factors Risk Factors Heart Score: Yes Hx Hypercholesterolemia, Yes Hx Hypertension, Yes Positive family hx of cardiac disease Based on the list above the patient has:: 1-2 risk factors - Troponin Troponin: </= normal limit - Score Heart Score - Total: 3 ED Treatment Course - LABORATORY CBC & Chemistry Diagram: 06/10/19 15:00 06/10/19 15:00 Medical Decision Making - Medical Decision Making 06/10/19 14:40 84F w/hx GERD, HTN, HLD p/w one day of worsening cough, sob, abdominal pain, chest tightness after 2 weeks cough. Ddx post-viral bronchitis, ACS, worsening GERD. Plan: CBC CMP Cardiac profile Lipase Maalox Reglan Pepcid Duoneb x2 Influenza A/B CXR EKG CT abdomen/pelvis Dispo: Pending 06/10/19 15:40 On reassessment s/p duonebs, crackles noted at L lung base. Plan for abx coverage for presumed pneumonia --- Case discussed with Dr. Sarabia. Plan for admission pending discussion with hospitalist team. Discharge - Discharge Information Problems reviewed: Yes Clinical Impression/Diagnosis: Chest pain Qualifiers: Chest pain type: unspecified Qualified Code(s): R07.9 - Chest pain, unspecified Pneumonia Qualifiers: Pneumonia type: due to unspecified organism Laterality: left Lung location: lower lobe of lung Qualified Code(s): J18.9 - Pneumonia, unspecified organism Condition: Stable - Admission Yes - Follow up/Referral Referrals: Abner Sarabia MD [Primary Care Provider] - - Patient Discharge Instructions - Post Discharge Activity
[2019-06-10] MEDS ORDERED: METOCLOPRAMIDE HCL INJECTION 10 MG/2 ML VIAL IVPUSH ONE (14:23)
[2019-06-10] MEDS ORDERED: MAG HYDROX/AL HYDROX/SIMETH -MYLANTA- ORAL SUSPENSION PO ONE (14:23)
[2019-06-10] MEDS ORDERED: FAMOTIDINE 20 MG/50 ML IVPB 20 MG/50 ML MG IVPB ONE ×2 (14:23→14:48)
[2019-06-10] MEDS ORDERED: METOCLOPRAMIDE HCL INJECTION 10 MG/2 ML VIAL ONE (14:48)
[2019-06-10] MEDS ORDERED: MAG HYDROX/AL HYDROX/SIMETH 30 ML UNIT-DOSE CUP ONE (14:48)
--- NOTE | 2019-06-10 15:26 | PDOC ---
Attending Attestation - Resident Resident Name: Ancelmo Gonzalez - ED Attending Attestation I have performed the following: I have examined & evaluated the patient, The case was reviewed & discussed with the resident, I agree w/resident's findings & plan - HPI HPI: 06/10/19 15:23 84-year-old female history of hypertension, high cholesterol presents with 1 week of progressive cough/chest congestion/chills with progressive weakness and dyspnea. No recent travel, received flu vaccine, no history of COPD or recurrent asthma, non-smoker. Patient reports some intermittent abdominal pain with nausea and posttussive vomiting, presents today for increasing fatigue. - Physicial Exam PE: 06/10/19 15:23 Afebrile, O2 sat within normal limits on room air, vital signs stable Patient is tachypneic, no acute distress but speaking 3-4 words at a time No JVD Heart is regular slight tachycardia, lungs with crackles at the left base worse than the right base, otherwise good air entry with anterior inspiratory rhonchi , no wheezing on my examination but patient was in the middle of nebulizer treatment Abdomen soft/nondistended, discomfort to palpation in the lower abdomen without guarding or rebound No edema, neurologically intact - Medical Decision Making 06/10/19 15:24 84-year-old female with progressive respiratory distress over the last week, afebrile and hemodynamically stable here but with focally decreased breath sounds on exam suggestive of pneumonia versus viral bronchitis/reactive airway. Rule out ACS/CHF. Labs EKG, chest x-ray Nebulizers Antibiotics or steroids pending results Will need admission given level of tachypnea and respiratory difficulty Heart Score/ECG Review #1 ECG reviewed & interpreted by me at: 13:06 General ECG Interpretation: Sinus Rhythm, Normal Rate (87), Normal Intervals ( qtc 423), No acute ischemic changes
[2019-06-10] MEDS ORDERED: AZITHROMYCIN IVPB 500 MG in DEXTROSE 5%-WATER - 250 ML IVPB ONE (15:36)
[2019-06-10] MEDS ORDERED: CEFTRIAXONE 1,000 MG in DEXTROSE 5%-WATER - 50 ML IVPB ONE (15:36)
[2019-06-10 15:38] LABS: BASO % 0.5 % (0-2.0); EOS % 1.3 % (0-4.5); HEMATOCRIT 33.5 % (32.4-45.2); HEMOGLOBIN 11.1 GM/dL (10.7-15.3); LYMPH % 14.8 % (8-40); MCH 30.9 pg (25.7-33.7); MEAN CELL VOLUME 93.8 fl (80-96); MONO % 9.7 % (3.8-10.2); NEUT % 73.7 % (42.8-82.8); PLATELET COUNT 402 K/MM3 (134-434); RBC 3.58 M/mm3 (3.60-5.2); RDW 13.4 % (11.6-15.6); WHITE BLOOD COUNT 9.9 K/mm3 (4.0-10.0)
[2019-06-10 16:14] LABS: ALBUMIN 3.4 g/dl (3.4-5.0); BILIRUBIN,TOTAL 0.2 mg/dL (0.2-1); BLOOD UREA NITROGEN 12.4 mg/dL (7-18); CREATININE 0.7 mg/dL (0.55-1.3); POTASSIUM 4.6 mmol/L (3.5-5.1); TOT PROT 6.8 g/dl (6.4-8.2)
--- NOTE | 2019-06-10 16:23 | EKG ---
Test Reason : Blood Pressure : / mmHG Vent. Rate : 087 BPM Atrial Rate : 087 BPM P-R Int : 142 ms QRS Dur : 074 ms QT Int : 352 ms P-R-T Axes : 060 027 050 degrees QTc Int : 423 ms POOR DATA QUALITY, INTERPRETATION MAY BE ADVERSELY AFFECTED NORMAL SINUS RHYTHM NORMAL ECG WHEN COMPARED WITH ECG OF 04-DEC-2018 14:38, NO SIGNIFICANT CHANGE WAS FOUND Confirmed by MD Radha, Felix ([id number]) on 06/10/2019 4:23:27 PM Referred By: Confirmed By:Felix Garcia MD
[2019-06-10 16:57] LABS: MAGNESIUM 2.1 mg/dL (1.8-2.4)
[2019-06-10] MEDS ORDERED: AZITHROMYCIN IVPB 500 MG/250 ML BAG IVPB ONE (17:35)
[2019-06-10] MEDS ORDERED: CEFTRIAXONE 1 GM/50 ML BAG ONE (17:36)
[2019-06-10] MEDS ORDERED: ACETAMINOPHEN 1000 MG/100 ML VIAL (NON FORMULARY) IVPB ONE (19:59)
[2019-06-10] MEDS ORDERED: ACETAMINOPHEN INJECTION 100 ML IVPB ONE (20:01)
--- NOTE | 2019-06-10 21:26 | PN ---
Teaching Attending Note Name of Resident: Igyg Gaona ATTENDING PHYSICIAN STATEMENT I saw and evaluated the patient. I reviewed the resident's note and discussed the case with the resident. I agree with the resident's findings and plan as documented. SUBJECTIVE: Patient is an 84 year old Montenegrin speaking woman with a PMH of HTN, Bilateral hip replacement, HLD and GERD who presents with one day of worsening cough after two weeks of URI symptoms. She is accompanied by her son who assists with history. She reports an episode of generalized weakness, generalized numbness, chest tightness, and lightheadedness today. She denies any loss of consciousness, head injury, vision changes, palpitations or diaphoresis. She denies any travel outside the country. Had a sick contact in daughter in law. She has diffuse abdominal pain worse with coughing, alongside one bout of nbnb vomiting yesterday as well as today. No history of COPD or asthma. Uses a cane a home. Denies alcohol, tobacco or illicit drug use. OBJECTIVE: Alert Vital Signs Period Temp Pulse Resp BP Sys/Fitzpatrick Pulse Ox Last 24 Hr 97.8 F-98.1 F 82-88 16-20 133-145/58-67 96-99 HEENT: No Jaundice, eye redness or discharge, PERRLA, EOMI. Normocephalic, atraumatic. External ears are normal and hearing is grossly intact. No nasal discharge. Neck: Supple, nontender. No palpable adenopathy or thyromegaly. No JVD Chest: Good effort. Diffuse rhonchi left lung base; Clear to percussion. Heart: Regular. No S3, rub or murmur Abdomen: Not distended, soft, nontender and no HSM. No rebound or guarding. Normal bowel sounds. Ext: Peripheral pulses intact. No leg edema. Skin: Warm and dry. No petechiae, rash or ecchymosis. Neuro: Alert. Oriented x3. CN 2-12 grossly intact. Sensation grossly intact in all four extremities and DTR are symmetric. Psych: Appropriate mood and affect. Good insight. Home Medications Medication Instructions Recorded Amlodipine Besylate [Norvasc -] 5 mg PO BID 12/04/18 Atorvastatin Ca [Lipitor] 20 mg PO HS 12/04/18 Duloxetine HCl [Cymbalta] 20 mg PO DAILY 12/04/18 Gabapentin [Neurontin] 300 mg PO BID 12/04/18 Lisinopril [Prinivil] 5 mg PO DAILY 06/10/19 Omeprazole 20 mg PO DAILY 06/10/19 Zolpidem Tartrate [Ambien] 10 mg PO HS 06/10/19 Abnormal Lab Results 06/10/19 06/10/19 15:00 15:00 RBC 3.58 L MPV 7.0 L Sodium 133 L Chloride 97 L ASSESSMENT AND PLAN: 1. Bronchitis/Atypical pneumonia - CXR shows mild cardiomegaly, unfolded aorta, hilar prominence and possible LLL infiltrate. No acute abnormality on CT abdomen /pelvis with IV contrast, but showed mild bilateral hydroureteronephrosis, hepatic steatosis and hiatal hernia. Will get respiratory virus panel, Flu swab , sputum culture, send urine for legionella antigen and treat with Duoneb, Solumedrol, Symbicort, Rocephin and Azithromycin. Hold Lisinopril and treat with Protonix 40 mg bid, elevate head of bed while sleeping and eat dinner at least 4 hours prior to bedtime. Consult Pulmonary. Will continue comprehensive care for all of patients comorbid conditions. 2. Hypertension - Hold Lisinopril, add HCTZ 12.5 mg qd and then Hydralazine 25 mg q am and Amlodipine 5 mg q pm for now. Revise regimen to ensure round-the- clock excellent BP control and counselling psychologist patient on the injurious effects of uncontrolled hypertension. Nonpharmacologic measures to control hypertension like weight loss, salt restriction and exercise discussed. Importance of adherence to treatment regimen and attainment of normotension emphasized. 3. DVT prophylaxis - Lovenox 40 mg SQ q 24 hours. 4. Advance directives - Full code
[2019-06-10 23:03] LABS: INR 1.02 (0.83-1.09)
[2019-06-10 23:05] LABS: ACTIVATED PTT 30.8 SECONDS (25.2-36.5)
--- NOTE | 2019-06-10 23:23 | HP ---
CHIEF COMPLAINT: Cough, shortness of breath PCP: Dr. Sarabia HISTORY OF PRESENT ILLNESS: Malian speaker, son at bedside to translate. 84F PM HTN, HLD, GERD, depression who presents with 3 weeks of cough and 2 day history of shortness of breath. She has complaints of pleuritic chest pain and abdominal pain. Her cough was initially non productive and has recently produced green sputum. She has seen her PCP who prescribed her antibiotics, taken anti- tussive medication with no relief. She has had 2 episodes of NBNB emesis, 1 last night and one episode in the AM today. She also describes generalized numbness, paresthesias, and weakness throughout her body. She has had subjective fevers at home but no recorded temperatures. She has had episodes of coughing similar to this in years prior which are alleviated with cough medicine and last approximately 1 week. She has no dysuria, hematuria, hemtochezia, diarrhea, nausea, or vomiting. She has one sick contact at home: her daughter in law who had URI symptoms last week that have resolved. ER course was notable for: (1) Chest X-ray was completed which showed left lower lobe infiltrate. (2) CT Abdomen/Pelvis was completed which did not show any acute pathology. (3) She was given IV Ceftriaxone and Azithromycin. Recent Travel: None PAST MEDICAL HISTORY: HTN, GERD, depression, HLD FAMILY MEDICAL HISTORY: None PAST SURGICAL HISTORY: Appendectomy, ORIF left leg, B/L Hip replacement Social History: Smoking: Never smoked Alcohol: Remote history of social drinking Drugs: None She lives downstairs from her son at home. Ambulates with a cane. No limitations in attending to her ADLS. Allergies No Known Allergies Allergy (Verified 06/10/19 13:12) HOME MEDICATIONS: Home Medications Medication Instructions Recorded Amlodipine Besylate [Norvasc -] 5 mg PO BID 12/04/18 Atorvastatin Ca [Lipitor] 20 mg PO HS 12/04/18 Duloxetine HCl [Cymbalta] 20 mg PO DAILY 12/04/18 Gabapentin [Neurontin] 300 mg PO BID 12/04/18 Lisinopril [Prinivil] 5 mg PO DAILY 06/10/19 Omeprazole 20 mg PO DAILY 06/10/19 Zolpidem Tartrate [Ambien] 10 mg PO HS 06/10/19 REVIEW OF SYSTEMS CONSTITUTIONAL: Present: fever, chills, generalized weakness, Absent: diaphoresis, malaise, loss of appetite, weight change HEENT: Absent: rhinorrhea, nasal congestion, throat pain, throat swelling, difficulty swallowing, mouth swelling, ear pain, eye pain, visual changes CARDIOVASCULAR: Absent: chest pain, syncope, palpitations, irregular heart rate, lightheadedness, peripheral edema RESPIRATORY: Present: Cough, shortness of breath, pleuritic pain, Absent: dyspnea with exertion, orthopnea, wheezing, stridor, hemoptysis GASTROINTESTINAL: Present: abdominal pain Absent: abdominal distension, nausea, vomiting, diarrhea, constipation, melena, hematochezia GENITOURINARY: Absent: dysuria, frequency, urgency, hesitancy, hematuria, flank pain, genital pain MUSCULOSKELETAL: Present: myalgia Absent: arthralgia, joint swelling, back pain, neck pain SKIN: Absent: rash, itching, pallor HEMATOLOGIC/IMMUNOLOGIC: Absent: easy bleeding, easy bruising, lymphadenopathy, frequent infections ENDOCRINE: Absent: unexplained weight gain, unexplained weight loss, heat intolerance, cold intolerance NEUROLOGIC: Present: paresthesias Absent: headache, focal weakness, dizziness, unsteady gait, seizure, mental status changes, bladder or bowel incontinence PSYCHIATRIC: Absent: anxiety, depression, suicidal or homicidal ideation, hallucinations. PHYSICAL EXAMINATION Vital Signs - 24 hr 06/10/19 06/10/19 06/10/19 13:09 18:09 20:00 Temperature 97.8 F 98.1 F Pulse Rate 88 Pulse Rate [ 82 82 Radial] Respiratory 16 20 18 Rate Blood Pressure 133/61 Blood Pressure 136/58 L 145/67 [Left Arm] O2 Sat by Pulse 99 96 96 Oximetry (%) GENERAL: Awake, alert, and fully oriented, in no acute distress. HEAD: Normal with no signs of trauma. EYES: Pupils equal, round and reactive to light, extraocular movements intact, sclera anicteric, conjunctiva clear. No lid lag. NECK: Normal range of motion, supple without lymphadenopathy, JVD, or masses. LUNGS: Coarse breath sounds in left lung. HEART: Regular rate and rhythm, normal S1 and S2 without murmur, rub or gallop. ABDOMEN: Soft, tender to palpation in all 4 quadrants MUSCULOSKELETAL: Normal range of motion at all joints. No bony deformities or tenderness. UPPER EXTREMITIES: 2+ pulses, warm, well-perfused. No cyanosis. No clubbing. No peripheral edema. LOWER EXTREMITIES: 2+ pulses, warm, well-perfused. No calf tenderness. No peripheral edema. NEUROLOGICAL: Cranial nerves II-XII intact. PSYCHIATRIC: Cooperative. Good eye contact. Appropriate mood and affect. SKIN: Warm, dry, normal turgor, no rashes or lesions noted, normal capillary refill. Laboratory Results - last 24 hr 06/10/19 06/10/19 06/10/19 15:00 15:00 15:00 WBC 9.9 RBC 3.58 L Hgb 11.1 Hct 33.5 MCV 93.8 MCH 30.9 MCHC 33.0 RDW 13.4 Plt Count 402 D MPV 7.0 L Absolute Neuts (auto) 7.3 Neutrophils % 73.7 Lymphocytes % 14.8 Monocytes % 9.7 Eosinophils % 1.3 D Basophils % 0.5 Nucleated RBC % 0 PT with INR INR PTT (Actin FS) Sodium 133 L Potassium 4.6 Chloride 97 L Carbon Dioxide 28 Anion Gap 8 BUN 12.4 Creatinine 0.7 Est GFR (CKD-EPI)AfAm 93.52 Est GFR (CKD-EPI)NonAf 80.69 Random Glucose 90 Lactic Acid Calcium 9.0 Magnesium 2.1 Total Bilirubin 0.2 AST 17 ALT 14 Alkaline Phosphatase 73 Creatine Kinase 70 Troponin I < 0.02 Total Protein 6.8 Albumin 3.4 Lipase 92 Influenza A (Rapid) Influenza B (Rapid) 06/10/19 06/10/19 06/10/19 15:00 22:40 22:40 WBC RBC Hgb Hct MCV MCH MCHC RDW Plt Count MPV Absolute Neuts (auto) Neutrophils % Lymphocytes % Monocytes % Eosinophils % Basophils % Nucleated RBC % PT with INR 12.00 INR 1.02 PTT (Actin FS) 30.8 Sodium Potassium Chloride Carbon Dioxide Anion Gap BUN Creatinine Est GFR (CKD-EPI)AfAm Est GFR (CKD-EPI)NonAf Random Glucose Lactic Acid 1.3 Calcium Magnesium Total Bilirubin AST ALT Alkaline Phosphatase Creatine Kinase Troponin I Total Protein Albumin Lipase Influenza A (Rapid) Negative Influenza B (Rapid) Negative ASSESSMENT/PLAN: 84F PMH HTN, HLD, GERD, depression who presents with pneumonia 1) Pneumonia - Chest X-ray shows likely Left lower lobe infiltrate. On CTA/P lower lobe is viewable and infiltrate is viewable. - Flu negative - Urine Legionella ordered - Respiratory virus panel ordered - Sputum culture/blood culture ordered - Duonebs Q4H - Symbicort BID - Solumedrol 40 mg IV Daily - Ceftriaxone 1 gram daily IV - Azithromycin 1 gram daily IV - Protonix 40 mg BID - Consulted pulmonology- appreciate recs 2) Hx of HTN - Holding lisinopril - HCTZ 12.5 mg Qdaily - Hydralazine 25 mg Qmornings - Amlodipine 5 mg Q HS 3) Hx of pain - Continue home dose gabapentin - Continue home dose percocet 4) Hx of HLD - Continue Atorvastatin 20 mg HS DVT: Lovenox 40 mg SQ Daily F: Oral hydration, as patient is tolerating PO intake E: Monitor BMP N: Salt restricted diet. Dispo: Admit to Med surg Visit type - Emergency Visit Emergency Visit: Yes ED Registration Date: 06/10/19 Care time: The patient presented to the Emergency Department on the above date and was hospitalized for further evaluation of their emergent condition. - New Patient This patient is new to me today: Yes Date on this admission: 06/10/19 - Critical Care Critical Care patient: No ATTENDING PHYSICIAN STATEMENT I saw and evaluated the patient. I reviewed the resident's note and discussed the case with the resident. I agree with the resident's findings and plan as documented. SUBJECTIVE: OBJECTIVE: ASSESSMENT AND PLAN:
[2019-06-10 23:51] VITALS: BMI 28.0
[2019-06-10] MEDS: BUDESONIDE/FORMETEROL FUMARATE 80/4.5 mcg INHALER IH SCH (23:56)
[2019-06-11] MEDS: ALBUTEROL SO4 2.5/IPRATROPIUM 0.5 INH SOL 3 ML VIAL.NEB. NEB SCH ×7 (00:10→23:45)
[2019-06-11] MEDS ORDERED: ACETAMINOPHEN 1000 MG/100 ML VIAL (NON FORMULARY) IVPB ONE (04:09)
[2019-06-11 04:26] LABS: EPI CELLS 2.2 /HPF (0-5/HPF); HYALINE CASTS 1 /lpf (0-8); URINE APPEARANCE CLEAR; URINE BACTERIA 4.5 /hpf (NEGATIVE); URINE BILIRUBIN NEGATIVE (NEGATIVE); URINE COLOR YELLOW; URINE GLUCOSE (UA) NEGATIVE (NEGATIVE); URINE KETONE NEGATIVE (NEGATIVE); URINE LEUK ESTERASE 2+ (NEGATIVE); URINE NITRITE NEGATIVE (NEGATIVE); URINE PROTEIN NEGATIVE (NEGATIVE); URINE RBC 1 /hpf (0-4); URINE UROBILINOGEN 0.2 mg/dL (0.2-1.0); URINE WBC 26 /hpf (0-5)
[2019-06-11] MEDS ORDERED: ONDANSETRON 4 MG/2 ML VIAL IVPUSH ONE (04:28)
[2019-06-11 09:25] LABS: BASO % 0.5 % (0-2.0); EOS % 1.2 % (0-4.5); HEMATOCRIT 35.2 % (32.4-45.2); LYMPH % 15.7 % (8-40); MCH 31.5 pg (25.7-33.7); MEAN CELL VOLUME 92.7 fl (80-96); MONO % 5.3 % (3.8-10.2); NEUT % 77.3 % (42.8-82.8); PLATELET COUNT 435 K/MM3 (134-434); RDW 13.5 % (11.6-15.6); WHITE BLOOD COUNT 7.9 K/mm3 (4.0-10.0)
[2019-06-11] MEDS: ENOXAPARIN NA (PORCINE) 40 MG/0.4 ML DISP.SYRIN SQ SCH (09:40)
[2019-06-11] MEDS: HYDROCHLOROTHIAZIDE 12.5 MG CAPSULE (FP) PO SCH (09:40)
[2019-06-11] MEDS: GABAPENTIN 300 MG CAPSULE PO SCH ×2 (09:40→22:09)
[2019-06-11] MEDS: DULoxetine HCL 20 MG CAPSULE.DR PO SCH ×2 (09:41→22:10)
[2019-06-11] MEDS: BUDESONIDE/FORMETEROL FUMARATE 80/4.5 mcg INHALER IH SCH ×2 (09:46→22:12)
[2019-06-11] MEDS: PANTOPRAZOLE SODIUM 40 MG VIAL IVPUSH SCH ×2 (09:46→22:11)
[2019-06-11 09:55] LABS: BLOOD UREA NITROGEN 8.1 mg/dL (7-18); CALCIUM 9.3 mg/dL (8.5-10.1); CREATININE 0.7 mg/dL (0.55-1.3); POTASSIUM 4.3 mmol/L (3.5-5.1)
[2019-06-11] MEDS ORDERED: methylPREDNISolone NA SUCC 40 MG/1 ML VIAL IVPUSH SCH (10:00)
--- NOTE | 2019-06-11 13:43 | PN ---
Progress Note (short form) - Note Progress Note: PULMONARY CONSULTATION DICTATED 06/11/19 IMP DYSPNEA/CONGESTION,HYPOXEMIA ACUTE BRONCHITIS LIKELY SECONDARY TO RECENT URI,? PNEUMONIA HTN HLD PLAN ABX O2 STEROIDS INHALED BRONCHODILATORS COUGH MEDS CHEST CT PERTUSSIS PCR DR STEEN Problem List - Problems (1) Cough Code(s): R05 - COUGH (2) Bronchitis Code(s): J40 - BRONCHITIS, NOT SPECIFIED ACUTE OR CHRONIC (3) Pneumonia Code(s): J18.9 - PNEUMONIA, UNSPECIFIED ORGANISM Qualifiers: Pneumonia type: due to unspecified organism Laterality: left Lung location: lower lobe of lung Qualified Code(s): J18.9 - Pneumonia, unspecified organism
[2019-06-11] MEDS ORDERED: ACETAMINOPHEN 1000 MG/100 ML VIAL (NON FORMULARY) IVPB PRN (14:11)
[2019-06-11] MEDS ORDERED: DEXTROSE 5%-WATER - 50 ML IVPB ONE (14:24)
[2019-06-11] MEDS ORDERED: cefTRIAXone SODIUM 1 GM VIAL ONE (14:24)
[2019-06-11] MEDS: CEFTRIAXONE 1 GM in DEXTROSE 5%-WATER - 50 ML IVPB SCH (15:06)
[2019-06-11] MEDS: guaiFENesin/CODEINE 5 ML UNIT-DOSE CUPS PO PRN ×2 (15:06→22:11)
[2019-06-11] MEDS: LISINOPRIL 5 MG TABLET (FP) PO SCH (15:41)
[2019-06-11] MEDS: amLODIPine BESYLATE 5 MG TABLET (FP) PO SCH (15:41)
--- NOTE | 2019-06-11 15:54 | CONS ---
PULMONARY CONSULTATION DATE OF CONSULTATION: 06/11/2019 REFERRING PHYSICIAN: Alyx Dimas MD HISTORY: Patient is an 84-year-old German female past medical history hypertension, hyperlipidemia, GERD, depression, nonsmoker admitted to [facility] with complaint of 2- to 7-ginp-kwxaerm of cough, chest congestion, and shortness of breath. Patient states approximately 2-3 weeks ago she started developing upper respiratory tract infection. Started developing cough productive of yellow, occasional green sputum. She also complains of shortness of breath and abdominal discomfort. She states that she has felt like she has had intermittent temperatures, although she did not take it. Apparently, she was prescribed antibiotics and taken antitussive medication at home without any improvement. She also had 2 episodes of emesis the night prior to admission. There is no history of recent travel. There is no history of occupational exposure to chemicals or fumes. She denies any history of COPD or asthma in the past. She apparently has had episodes of coughing similar to this in years past alleviated with cough medication lasting approximately 1 week. Apparently she states she had 1 sick contact at home with [id number] with URI symptoms a week ago, which have subsequently resolved. On admission, she is felt to have possible pneumonia. She was placed on ceftriaxone, azithromycin, and steroids. PAST MEDICAL HISTORY: Again includes hypertension, hyperlipidemia, GERD, depression, likely bronchitis. SOCIAL HISTORY: Nonsmoker. Born in [facility]. No occupational exposures. CURRENT MEDICATIONS: Include budesonide, Solu-Medrol, Zithromax, ceftriaxone, Lovenox, Neurontin, Cymbalta, DuoNeb, Norvasc, Lipitor, Protonix, and hydrochlorothiazide. PHYSICAL EXAMINATION: General: Patient is an elderly female awake, alert in no acute distress. Vital Signs: She is afebrile. Blood pressure 170/84, respiratory rate is 22, O2 saturation is 92% on room air. Heart rate is 100. HEENT: Normocephalic, atraumatic. Neck: Supple. Heart: Regular S1, S2. Chest: A few scattered wheezes. Diminished breath sounds. Abdomen: Soft. Bowel sounds are positive. Extremities: No cyanosis or edema. LABORATORIES: WBC 7.9, hemoglobin 12, hematocrit 35.2 with a platelet count of 435,000. Chemistries; sodium 134, BUN 8, creatinine 0.7. Chest x-ray; no definitive infiltrates and/or effusions. IMPRESSION: 1. Dyspnea, cough, chest congestion, mild hypoxemia likely secondary to acute bronchitis secondary to recent upper respiratory infection, cannot exclude possible pneumonia. 2. Hypertension. 3. Hyperlipidemia. PLAN: Antibiotics. Supplemental O2. We will increase steroids. Inhaled bronchodilators. Antitussives. Chest CT. Pertussis PCR. ALYX STEEN M.D. [id number]
--- NOTE | 2019-06-11 16:05 | PN ---
Physical Exam: SUBJECTIVE: Patient seen and examined at bed side , complaining of numbnes in her toung and around her ears, reports story fo two weeks of tachypnea , dyspnea and sob, associated with some chills, will send lyme titers and do CT head to R.O stroke OBJECTIVE: Vital Signs Period Temp Pulse Resp BP Sys/Fitzpatrick Pulse Ox Last 24 Hr 98.0 F-98.8 F 81-101 18-22 136-170/58-84 92-100 GENERAL: AAOx3 in NAD HEAD: NC/AT EYES: EOMI, Conjunctiva clear, sclera anicteric ENT: moist mucous membrane NECK: Supple, no JVD LUNGS: CTA B/L, no crackles no wheezing no accessory muscle use. HEART: RRR,, normal s1, s2, no M/R/G ABDOMEN: Soft, ND, NT, +BS 4 Q, no CVA Tenderness LOWER EXTREMITIES: no edema, +2DP pulse, NEUROLOGICAL: No focal deficit. Normal speech. gait not observed. PSYCHIATRIC: Cooperative. Good eye contact. Appropriate mood and affect. SKIN: Warm, dry, Laboratory Results - last 24 hr 06/10/19 06/10/19 06/10/19 15:00 15:00 15:00 WBC RBC Hgb Hct MCV MCH MCHC RDW Plt Count MPV Absolute Neuts (auto) Neutrophils % Lymphocytes % Monocytes % Eosinophils % Basophils % Nucleated RBC % PT with INR INR PTT (Actin FS) Sodium 133 L Potassium 4.6 Chloride 97 L Carbon Dioxide 28 Anion Gap 8 BUN 12.4 Creatinine 0.7 Est GFR (CKD-EPI)AfAm 93.52 Est GFR (CKD-EPI)NonAf 80.69 POC Glucometer Random Glucose 90 Lactic Acid 1.3 Calcium 9.0 Magnesium 2.1 Total Bilirubin 0.2 AST 17 ALT 14 Alkaline Phosphatase 73 Creatine Kinase 70 Troponin I < 0.02 Total Protein 6.8 Albumin 3.4 Lipase 92 Urine Color Urine Appearance Urine pH Ur Specific [place] Urine Protein Urine Glucose (UA) Urine Ketones Urine Blood Urine Nitrite Urine Bilirubin Urine Urobilinogen Ur Leukocyte Esterase Urine WBC (Auto) Urine RBC (Auto) Urine Casts (Auto) U Epithel Cells (Auto) Urine Bacteria (Auto) Influenza A (Rapid) Influenza B (Rapid) 06/10/19 06/10/19 06/11/19 22:40 22:40 01:45 WBC RBC Hgb Hct MCV MCH MCHC RDW Plt Count MPV Absolute Neuts (auto) Neutrophils % Lymphocytes % Monocytes % Eosinophils % Basophils % Nucleated RBC % PT with INR 12.00 INR 1.02 PTT (Actin FS) 30.8 Sodium Potassium Chloride Carbon Dioxide Anion Gap BUN Creatinine Est GFR (CKD-EPI)AfAm Est GFR (CKD-EPI)NonAf POC Glucometer Random Glucose Lactic Acid Calcium Magnesium Total Bilirubin AST ALT Alkaline Phosphatase Creatine Kinase Troponin I Total Protein Albumin Lipase Urine Color Yellow Urine Appearance Clear Urine pH 7.0 Ur Specific [place] 1.038 H Urine Protein Negative Urine Glucose (UA) Negative Urine Ketones Negative Urine Blood Negative Urine Nitrite Negative Urine Bilirubin Negative Urine Urobilinogen 0.2 Ur Leukocyte Esterase 2+ H Urine WBC (Auto) 26 Urine RBC (Auto) 1 Urine Casts (Auto) 1 U Epithel Cells (Auto) 2.2 Urine Bacteria (Auto) 4.5 Influenza A (Rapid) Negative Influenza B (Rapid) Negative 06/11/19 06/11/19 06/11/19 05:53 08:32 08:32 WBC 7.9 RBC 3.80 Hgb 12.0 Hct 35.2 MCV 92.7 MCH 31.5 MCHC 34.0 RDW 13.5 Plt Count 435 H MPV 7.0 L Absolute Neuts (auto) 6.1 Neutrophils % 77.3 Lymphocytes % 15.7 Monocytes % 5.3 Eosinophils % 1.2 Basophils % 0.5 Nucleated RBC % 0 PT with INR INR PTT (Actin FS) Sodium 134 L Potassium 4.3 Chloride 99 Carbon Dioxide 27 Anion Gap 8 BUN 8.1 Creatinine 0.7 Est GFR (CKD-EPI)AfAm 93.52 Est GFR (CKD-EPI)NonAf 80.69 POC Glucometer 119 Random Glucose 142 H Lactic Acid Calcium 9.3 Magnesium Total Bilirubin AST ALT Alkaline Phosphatase Creatine Kinase Troponin I Total Protein Albumin Lipase Urine Color Urine Appearance Urine pH Ur Specific [place] Urine Protein Urine Glucose (UA) Urine Ketones Urine Blood Urine Nitrite Urine Bilirubin Urine Urobilinogen Ur Leukocyte Esterase Urine WBC (Auto) Urine RBC (Auto) Urine Casts (Auto) U Epithel Cells (Auto) Urine Bacteria (Auto) Influenza A (Rapid) Influenza B (Rapid) 06/11/19 11:32 WBC RBC Hgb Hct MCV MCH MCHC RDW Plt Count MPV Absolute Neuts (auto) Neutrophils % Lymphocytes % Monocytes % Eosinophils % Basophils % Nucleated RBC % PT with INR INR PTT (Actin FS) Sodium Potassium Chloride Carbon Dioxide Anion Gap BUN Creatinine Est GFR (CKD-EPI)AfAm Est GFR (CKD-EPI)NonAf POC Glucometer 150 Random Glucose Lactic Acid Calcium Magnesium Total Bilirubin AST ALT Alkaline Phosphatase Creatine Kinase Troponin I Total Protein Albumin Lipase Urine Color Urine Appearance Urine pH Ur Specific [place] Urine Protein Urine Glucose (UA) Urine Ketones Urine Blood Urine Nitrite Urine Bilirubin Urine Urobilinogen Ur Leukocyte Esterase Urine WBC (Auto) Urine RBC (Auto) Urine Casts (Auto) U Epithel Cells (Auto) Urine Bacteria (Auto) Influenza A (Rapid) Influenza B (Rapid) Active Medications Generic Name Dose Route Start Last Admin Trade Name Freq PRN Reason Stop Dose Admin Acetaminophen 1,000 mg 06/11/19 14:11 06/11/19 15:37 Ofirmev Injection - IVPB 06/12/19 14:11 1,000 mg Q6H PRN Administration PAIN LEVEL 1-5 Albuterol/Ipratropium 1 amp 06/11/19 00:00 06/11/19 12:00 Duoneb - NEB 1 amp RQ4H JANNETH Administration Amlodipine Besylate 5 mg 06/11/19 15:15 06/11/19 15:41 Norvasc - PO 5 mg DAILY JANNETH Administration Atorvastatin Calcium 20 mg 06/11/19 22:00 Lipitor - PO HS JANNETH Budesonide/Formoterol Fumarate 2 puff 06/10/19 23:30 06/11/19 09:46 Symbicort 80/4.5mcg - IH 2 puff BID JANNETH Administration Duloxetine HCl 20 mg 06/11/19 10:00 06/11/19 09:41 Cymbalta - PO 20 mg BID JANNETH Administration Enoxaparin Sodium 40 mg 06/11/19 10:00 06/11/19 09:40 Lovenox - SQ 40 mg DAILY JANNETH Administration Gabapentin 300 mg 06/11/19 10:00 06/11/19 09:40 Neurontin - PO 300 mg BID JANNETH Administration Guaifenesin/Codeine Phosphate 5 ml 06/11/19 13:51 06/11/19 15:06 Robitussin Ac - PO 5 ml TID PRN Administration COUGH Hydrochlorothiazide 12.5 mg 06/11/19 10:00 06/11/19 09:40 Hctz - PO 12.5 mg DAILY JANNETH Administration Azithromycin 500 mg in 250 mls @ 250 mls/hr 06/11/19 15:00 Zithromax 500mg Ivpb (Pre-Docked) IVPB DAILY JANNETH Ceftriaxone Sodium 1 gm/ 50 mls @ 100 mls/hr 06/11/19 15:00 06/11/19 15:06 Dextrose IVPB 100 mls/hr DAILY JANNETH Administration Protocol Lisinopril 5 mg 06/11/19 15:15 06/11/19 15:41 Prinivil PO 5 mg DAILY JANNETH Administration Methylprednisolone Sodium Succinate 40 mg 06/11/19 18:00 Solu-Medrol - IVPUSH Q8H-IV JANNETH Pantoprazole Sodium 40 mg 06/11/19 10:00 06/11/19 09:46 Protonix Iv IVPUSH 40 mg BID JANNETH Administration Zolpidem Tartrate 5 mg 06/11/19 22:00 Ambien - PO HS PRN INSOMNIA CBC, BMP 06/11/19 08:32 06/11/19 08:32 ASSESSMENT/PLAN: 84F PMH HTN, HLD, GERD, depression who presents with pneumonia # Pneumonia CAP vs acute pronchitis secondary to recent URI * Chest X-ray shows likely Left lower lobe infiltrate. On CTA/P lower lobe is viewable and infiltrate is viewable. * Flu negative * Urine Legionella ordered * Respiratory virus panel ordered * Sputum culture/blood culture ordered * Duonebs Q4H * Symbicort BID * Solumedrol 40 mg Q 8hr IV * Ceftriaxone 1 gram daily IV * Azithromycin 1 gram daily IV * Protonix 40 mg BID * Consulted pulmonology- appreciate recs * bordetella PCR * add guanifinizine for cough * chest CT # Hx of HTN * cont lisinopril, HCTZ 12.5 mg Qdaily, Amlodipine 5 mg Q HS # Trigiminal Neuralgia vs stroke * pt complain of numbness and tingling in her tounge and left face around her ears , not able to confirm if new or old , will do CT head Without contrast to R.o Stroke and cont home mediciation gabapentin and cymbalta. # HLD Continue Atorvastatin 20 mg HS #DVT: Lovenox 40 mg SQ Daily # GI proph: PPI 40 BID # FEN * F: Oral hydration, as patient is tolerating PO intake * E: Monitor BMP * N: Salt restricted diet. #Dispo: Admit to Med surg Visit type - Emergency Visit Emergency Visit: Yes ED Registration Date: 06/10/19 Care time: The patient presented to the Emergency Department on the above date and was hospitalized for further evaluation of their emergent condition. - New Patient This patient is new to me today: Yes Date on this admission: 06/11/19 - Critical Care Critical Care patient: No - Discharge Referral Referred to [facility] No ATTENDING PHYSICIAN STATEMENT I saw and evaluated the patient. I reviewed the resident's note and discussed the case with the resident. I agree with the resident's findings and plan as documented. SUBJECTIVE: OBJECTIVE: ASSESSMENT AND PLAN:
[2019-06-11] MEDS: AZITHROMYCIN IVPB 500 MG/250 ML BAG IVPB SCH (17:25)
[2019-06-11] MEDS: methylPREDNISolone NA SUCC 40 MG/1 ML VIAL IVPUSH SCH (17:25)
--- NOTE | 2019-06-11 21:26 | PN ---
Teaching Attending Note Name of Resident: Meek Nuñez ATTENDING PHYSICIAN STATEMENT I saw and evaluated the patient. I reviewed the resident's note and discussed the case with the resident. I agree with the resident's findings and plan as documented. SUBJECTIVE: Patient seen and examined at bedside, endorses some SOB, cough and lower back/hip pain, requesting pain meds, VS otherwise stable. OBJECTIVE: GA comfortable, AAox3, speaking in full sentences HEENT NC/AT, EOMI, neck supple, dry MM Chest coarse b/l BS w/ mild wheezing CVS S1, S2+, RRR Abd Soft, nT, ND, BS+, no guarding Ext no LE edema, no calf tenderness Vital Signs - 24 hr 06/10/19 06/11/19 06/11/19 23:00 02:00 04:48 Temperature 98.3 F 98.0 F Pulse Rate 83 81 Respiratory 18 18 Rate Blood Pressure 151/62 140/74 O2 Sat by Pulse 94 L 100 Oximetry (%) 06/11/19 06/11/19 06/11/19 06:00 09:00 10:00 Temperature 98.0 F Pulse Rate 92 H 88 Respiratory 18 20 Rate Blood Pressure 137/66 158/68 O2 Sat by Pulse 92 L Oximetry (%) 06/11/19 06/11/19 06/11/19 12:00 13:30 14:00 Temperature 98.8 F Pulse Rate 100 H 101 H Respiratory 22 H 20 Rate Blood Pressure 170/84 159/82 O2 Sat by Pulse 95 Oximetry (%) 06/11/19 18:00 Temperature 98.9 F Pulse Rate 101 H Respiratory 20 Rate Blood Pressure 145/79 O2 Sat by Pulse Oximetry (%) Microbiology 06/10/19 18:46 Blood - Peripheral Venous Blood Culture - Preliminary NO GROWTH OBTAINED AFTER 24 HOURS, INCUBATION TO CONTINUE FOR 4 DAYS. 06/10/19 18:46 Blood - Peripheral Venous Blood Culture - Preliminary NO GROWTH OBTAINED AFTER 24 HOURS, INCUBATION TO CONTINUE FOR 4 DAYS. 06/11/19 10:10 Sputum - Expectorated Gram Stain - Final Laboratory Results - last 24 hr 06/10/19 06/10/19 06/11/19 22:40 22:40 01:45 WBC RBC Hgb Hct MCV MCH MCHC RDW Plt Count MPV Absolute Neuts (auto) Neutrophils % Lymphocytes % Monocytes % Eosinophils % Basophils % Nucleated RBC % PT with INR 12.00 INR 1.02 PTT (Actin FS) 30.8 Sodium Potassium Chloride Carbon Dioxide Anion Gap BUN Creatinine Est GFR (CKD-EPI)AfAm Est GFR (CKD-EPI)NonAf POC Glucometer Random Glucose Calcium Urine Color Yellow Urine Appearance Clear Urine pH 7.0 Ur Specific [place] 1.038 H Urine Protein Negative Urine Glucose (UA) Negative Urine Ketones Negative Urine Blood Negative Urine Nitrite Negative Urine Bilirubin Negative Urine Urobilinogen 0.2 Ur Leukocyte Esterase 2+ H Urine WBC (Auto) 26 Urine RBC (Auto) 1 Urine Casts (Auto) 1 U Epithel Cells (Auto) 2.2 Urine Bacteria (Auto) 4.5 Influenza A (Rapid) Negative Influenza B (Rapid) Negative 06/11/19 06/11/19 06/11/19 05:53 08:32 08:32 WBC 7.9 RBC 3.80 Hgb 12.0 Hct 35.2 MCV 92.7 MCH 31.5 MCHC 34.0 RDW 13.5 Plt Count 435 H MPV 7.0 L Absolute Neuts (auto) 6.1 Neutrophils % 77.3 Lymphocytes % 15.7 Monocytes % 5.3 Eosinophils % 1.2 Basophils % 0.5 Nucleated RBC % 0 PT with INR INR PTT (Actin FS) Sodium 134 L Potassium 4.3 Chloride 99 Carbon Dioxide 27 Anion Gap 8 BUN 8.1 Creatinine 0.7 Est GFR (CKD-EPI)AfAm 93.52 Est GFR (CKD-EPI)NonAf 80.69 POC Glucometer 119 Random Glucose 142 H Calcium 9.3 Urine Color Urine Appearance Urine pH Ur Specific [place] Urine Protein Urine Glucose (UA) Urine Ketones Urine Blood Urine Nitrite Urine Bilirubin Urine Urobilinogen Ur Leukocyte Esterase Urine WBC (Auto) Urine RBC (Auto) Urine Casts (Auto) U Epithel Cells (Auto) Urine Bacteria (Auto) Influenza A (Rapid) Influenza B (Rapid) 06/11/19 06/11/19 11:32 17:47 WBC RBC Hgb Hct MCV MCH MCHC RDW Plt Count MPV Absolute Neuts (auto) Neutrophils % Lymphocytes % Monocytes % Eosinophils % Basophils % Nucleated RBC % PT with INR INR PTT (Actin FS) Sodium Potassium Chloride Carbon Dioxide Anion Gap BUN Creatinine Est GFR (CKD-EPI)AfAm Est GFR (CKD-EPI)NonAf POC Glucometer 150 163 Random Glucose Calcium Urine Color Urine Appearance Urine pH Ur Specific [place] Urine Protein Urine Glucose (UA) Urine Ketones Urine Blood Urine Nitrite Urine Bilirubin Urine Urobilinogen Ur Leukocyte Esterase Urine WBC (Auto) Urine RBC (Auto) Urine Casts (Auto) U Epithel Cells (Auto) Urine Bacteria (Auto) Influenza A (Rapid) Influenza B (Rapid) Home Medications Medication Instructions Recorded Amlodipine Besylate [Norvasc -] 5 mg PO DAILY 12/04/18 Atorvastatin Ca [Lipitor] 20 mg PO HS 12/04/18 Duloxetine HCl [Cymbalta] 20 mg PO BID 12/04/18 Gabapentin [Neurontin] 300 mg PO BID 12/04/18 Lisinopril [Prinivil] 5 mg PO DAILY 06/10/19 Omeprazole 20 mg PO DAILY 06/10/19 Zolpidem Tartrate [Ambien] 10 mg PO HS 06/10/19 Hydrocodone/Acetaminophen 1 each PO Q6H PRN 06/11/19 [Hydrocodon-Acetaminophn 10-325] Current Medications Generic Name Dose Route Start Last Admin Trade Name Fre PRN Reason Stop Dose Admin Acetaminophen 1,000 mg 06/11/19 14:11 06/11/19 15:37 Ofirmev Injection - IVPB 06/12/19 14:11 1,000 mg Q6H PRN Administration PAIN LEVEL 1-5 Albuterol/Ipratropium 1 amp 06/11/19 00:00 06/11/19 21:00 Duoneb - NEB 1 amp RQ4H JANNETH Administration Amlodipine Besylate 5 mg 06/11/19 15:15 06/11/19 15:41 Norvasc - PO 5 mg DAILY JANNETH Administration Atorvastatin Calcium 20 mg 06/11/19 22:00 Lipitor - PO [facility] Budesonide/Formoterol Fumarate 2 puff 06/10/19 23:30 06/11/19 09:46 Symbicort 80/4.5mcg - IH 2 puff BID JANNETH Administration Duloxetine HCl 20 mg 06/11/19 10:00 06/11/19 09:41 Cymbalta - PO 20 mg BID JANNETH Administration Enoxaparin Sodium 40 mg 06/11/19 10:00 06/11/19 09:40 Lovenox - SQ 40 mg DAILY JANNETH Administration Gabapentin 300 mg 06/11/19 10:00 06/11/19 09:40 Neurontin - PO 300 mg BID JANNETH Administration Guaifenesin/Codeine Phosphate 5 ml 06/11/19 13:51 06/11/19 15:06 Robitussin Ac - PO 5 ml TID PRN Administration COUGH Hydrochlorothiazide 12.5 mg 06/11/19 10:00 06/11/19 09:40 Hctz - PO 12.5 mg DAILY JANNETH Administration Azithromycin 500 mg in 250 mls @ 250 mls/hr 06/11/19 15:00 06/11/19 17:25 Zithromax 500mg Ivpb (Pre-Docked) IVPB 250 mls/hr DAILY JANNETH Administration Ceftriaxone Sodium 1 gm/ 50 mls @ 100 mls/hr 06/11/19 15:00 06/11/19 15:06 Dextrose IVPB 100 mls/hr DAILY JANNETH Administration Protocol Lisinopril 5 mg 06/11/19 15:15 06/11/19 15:41 Prinivil PO 5 mg DAILY JANNETH Administration Methylprednisolone Sodium Succinate 40 mg 06/11/19 18:00 06/11/19 17:25 Solu-Medrol - IVPUSH 40 mg Q8H-IV JANNETH Administration Pantoprazole Sodium 40 mg 06/11/19 10:00 06/11/19 09:46 Protonix Iv IVPUSH 40 mg BID JANNETH Administration Zolpidem Tartrate 5 mg 06/11/19 22:00 Ambien - PO HS PRN INSOMNIA ASSESSMENT AND PLAN: 84 Portugese/Arabic speaking female w/ h/o HTN, HLD, GERD, ?trigeminal neuralgia, fibromyalgia, depression who presents with LLL PNA. LLL PNA Cont. IV Azithro/Ceftriaxone Follow legionella, viral panel IV steroids PRN for wheezing, O2 as needed, incentive spirometer Pulmonary evaluation: Dr Medel HTN restart BP meds, hold Lisinopril in view of cough Fibromyalgia/?trigeminal neuralgia as per resident, pt. c/o tongue numbness/L facial numbess CT brain unremarkable restart Cymbalta, neurochecks and monitor, doubt CVA HLD cont. statin GERD PPI PRN DVT ppx: Lovenox 40 mg SQ Daily Med Surg
[2019-06-11] MEDS ORDERED: amLODIPine BESYLATE 5 MG TABLET (FP) PO SCH (22:00)
[2019-06-11] MEDS: ATORVASTATIN CA 20 MG TABLET (FP) PO SCH (22:10)
[2019-06-11] MEDS: ZOLPIDEM TARTRATE 5 MG TABLET PO PRN (22:10)
[2019-06-12] MEDS: methylPREDNISolone NA SUCC 40 MG/1 ML VIAL IVPUSH SCH ×3 (02:14→17:10)
[2019-06-12] MEDS: ALBUTEROL SO4 2.5/IPRATROPIUM 0.5 INH SOL 3 ML VIAL.NEB. NEB SCH ×5 (03:50→20:07)
[2019-06-12] MEDS: guaiFENesin/CODEINE 5 ML UNIT-DOSE CUPS PO PRN ×3 (06:00→21:54)
--- NOTE | 2019-06-12 07:37 | PN ---
Physical Exam: SUBJECTIVE: Patient seen and examined at bed side , numbnes in her toungless than yeserday, feeling better, less cough , no fever or chills or chest pain reported UA result reviwed OBJECTIVE: Vital Signs Period Temp Pulse Resp BP Sys/Fitzpatrick Pulse Ox Last 24 Hr 98.2 F-98.9 F 60-110 20-22 121-170/60-84 92-99 GENERAL: AAOx3 in NAD HEAD: NC/AT EYES: EOMI, Conjunctiva clear, sclera anicteric ENT: moist mucous membrane NECK: Supple, no JVD LUNGS: CTA B/L, no crackles no wheezing no accessory muscle use. HEART: RRR,, normal s1, s2, no M/R/G ABDOMEN: Soft, ND, NT, +BS 4 Q, no CVA Tenderness LOWER EXTREMITIES: no edema, +2DP pulse, NEUROLOGICAL: No focal deficit. Normal speech. gait not observed. PSYCHIATRIC: Cooperative. Good eye contact. Appropriate mood and affect. SKIN: Warm, dry, Laboratory Results - last 24 hr 06/11/19 06/11/19 06/11/19 08:32 08:32 11:32 WBC 7.9 RBC 3.80 Hgb 12.0 Hct 35.2 MCV 92.7 MCH 31.5 MCHC 34.0 RDW 13.5 Plt Count 435 H MPV 7.0 L Absolute Neuts (auto) 6.1 Neutrophils % 77.3 Lymphocytes % 15.7 Monocytes % 5.3 Eosinophils % 1.2 Basophils % 0.5 Nucleated RBC % 0 Sodium 134 L Potassium 4.3 Chloride 99 Carbon Dioxide 27 Anion Gap 8 BUN 8.1 Creatinine 0.7 Est GFR (CKD-EPI)AfAm 93.52 Est GFR (CKD-EPI)NonAf 80.69 POC Glucometer 150 Random Glucose 142 H Calcium 9.3 06/11/19 06/11/19 17:47 23:09 WBC RBC Hgb Hct MCV MCH MCHC RDW Plt Count MPV Absolute Neuts (auto) Neutrophils % Lymphocytes % Monocytes % Eosinophils % Basophils % Nucleated RBC % Sodium Potassium Chloride Carbon Dioxide Anion Gap BUN Creatinine Est GFR (CKD-EPI)AfAm Est GFR (CKD-EPI)NonAf POC Glucometer 163 182 Random Glucose Calcium Active Medications Generic Name Dose Route Start Last Admin Trade Name Freq PRN Reason Stop Dose Admin Acetaminophen 1,000 mg 06/11/19 14:11 06/11/19 15:37 Ofirmev Injection - IVPB 06/12/19 14:11 1,000 mg Q6H PRN Administration PAIN LEVEL 1-5 Albuterol/Ipratropium 1 amp 06/11/19 00:00 06/12/19 03:50 Duoneb - NEB Not Given RQ4H JANNETH Amlodipine Besylate 5 mg 06/11/19 15:15 06/11/19 15:41 Norvasc - PO 5 mg DAILY JANNETH Administration Atorvastatin Calcium 20 mg 06/11/19 22:00 06/11/19 22:10 Lipitor - PO 20 mg HS JANNETH Administration Budesonide/Formoterol Fumarate 2 puff 06/10/19 23:30 06/11/19 22:12 Symbicort 80/4.5mcg - IH 2 puff BID JANNETH Administration Duloxetine HCl 20 mg 06/11/19 10:00 06/11/19 22:10 Cymbalta - PO 20 mg BID JANNETH Administration Enoxaparin Sodium 40 mg 06/11/19 10:00 06/11/19 09:40 Lovenox - SQ 40 mg DAILY JANNETH Administration Gabapentin 300 mg 06/11/19 10:00 06/11/19 22:09 Neurontin - PO 300 mg BID JANNETH Administration Guaifenesin/Codeine Phosphate 5 ml 06/11/19 13:51 06/11/19 22:11 Robitussin Ac - PO 5 ml TID PRN Administration COUGH Hydrochlorothiazide 12.5 mg 06/11/19 10:00 06/11/19 09:40 Hctz - PO 12.5 mg DAILY JANNETH Administration Azithromycin 500 mg in 250 mls @ 250 mls/hr 06/11/19 15:00 06/11/19 17:25 Zithromax 500mg Ivpb (Pre-Docked) IVPB 250 mls/hr DAILY JANNETH Administration Ceftriaxone Sodium 1 gm/ 50 mls @ 100 mls/hr 06/11/19 15:00 06/11/19 15:06 Dextrose IVPB 100 mls/hr DAILY JANNETH Administration Protocol Lisinopril 5 mg 06/11/19 15:15 06/11/19 15:41 Prinivil PO 5 mg DAILY JANNETH Administration Methylprednisolone Sodium Succinate 40 mg 06/11/19 18:00 06/12/19 02:14 Solu-Medrol - IVPUSH 40 mg Q8H-IV JANNETH Administration Pantoprazole Sodium 40 mg 06/11/19 10:00 06/11/19 22:11 Protonix Iv IVPUSH 40 mg BID JANNETH Administration Zolpidem Tartrate 5 mg 06/11/19 22:00 06/11/19 22:10 Ambien - PO 5 mg HS PRN Administration INSOMNIA CBC, BMP 06/12/19 07:25 06/12/19 07:25 ASSESSMENT/PLAN: 84F PMH HTN, HLD, GERD, depression who presents with pneumonia # Pneumonia CAP vs acute pronchitis secondary to recent URI * Chest X-ray shows likely Left lower lobe infiltrate. On CTA/P lower lobe is viewable and infiltrate is viewable. * Flu negative * Urine Legionella and strep negative * Respiratory virus panel pending * Sputum culture/blood culture ordered * Duonebs Q4H * Symbicort BID * Solumedrol 40 mg Q 8hr IV * Ceftriaxone 1 gram daily IV * Azithromycin 1 gram daily IV * Protonix 40 mg BID * Consulted pulmonology- appreciate recs * bordetella PCR * add guanifinizine for cough * chest CT LLL infiltrate very small # Leuckocytosis 10.4 2/2 steroids use, monitor cbc daily # HTN, controlled * cont lisinopril, HCTZ 12.5 mg Qdaily, Amlodipine 5 mg Q HS # Trigiminal Neuralgia vs stroke * pt complain of numbness and tingling in her tounge and left face around her ears , not able to confirm if new or old , cont home mediciation gabapentin and cymbalta. * CT head negative # HLD Continue Atorvastatin 20 mg HS #DVT: Lovenox 40 mg SQ Daily # GI proph: PPI 40 BID # FEN * F: Oral hydration, as patient is tolerating PO intake * E: Monitor BMP * N: Salt restricted diet. #Dispo: Admit to Med surg Visit type - Emergency Visit Emergency Visit: Yes ED Registration Date: 06/10/19 Care time: The patient presented to the Emergency Department on the above date and was hospitalized for further evaluation of their emergent condition. - New Patient This patient is new to me today: No - Critical Care Critical Care patient: No ATTENDING PHYSICIAN STATEMENT I saw and evaluated the patient. I reviewed the resident's note and discussed the case with the resident. I agree with the resident's findings and plan as documented. SUBJECTIVE: OBJECTIVE: ASSESSMENT AND PLAN:
[2019-06-12 08:05] LABS: BASO % 0.1 % (0-2.0); HEMATOCRIT 34.2 % (32.4-45.2); HEMOGLOBIN 11.8 GM/dL (10.7-15.3); LYMPH % 7.3 % (8-40); MCH 31.8 pg (25.7-33.7); MCHC 34.5 g/dl (32.0-36.0); MEAN CELL VOLUME 92.1 fl (80-96); MEAN PLT VOLUME 6.9 fl (7.5-11.1); MONO % 3.3 % (3.8-10.2); NEUT % 89.3 % (42.8-82.8); PLATELET COUNT 441 K/MM3 (134-434); RBC 3.72 M/mm3 (3.60-5.2); RDW 13.5 % (11.6-15.6); WHITE BLOOD COUNT 10.4 K/mm3 (4.0-10.0)
[2019-06-12 08:34] LABS: ALBUMIN 3.5 g/dl (3.4-5.0); BILIRUBIN,TOTAL 0.9 mg/dL (0.2-1); BLOOD UREA NITROGEN 8.2 mg/dL (7-18); CALCIUM 9.7 mg/dL (8.5-10.1); CREATININE 0.6 mg/dL (0.55-1.3); POTASSIUM 4.4 mmol/L (3.5-5.1); TOT PROT 7.7 g/dl (6.4-8.2)
[2019-06-12] MEDS ORDERED: cefTRIAXone SODIUM 1 GM VIAL ONE (09:14)
[2019-06-12] MEDS ORDERED: DEXTROSE 5%-WATER - 50 ML IVPB ONE (09:15)
[2019-06-12] MEDS: ENOXAPARIN NA (PORCINE) 40 MG/0.4 ML DISP.SYRIN SQ SCH (09:45)
[2019-06-12] MEDS: ASPIRIN 81 MG CHEWABLE TABLETS PO SCH (09:47)
[2019-06-12] MEDS: DULoxetine HCL 20 MG CAPSULE.DR PO SCH ×2 (09:47→21:54)
[2019-06-12] MEDS: LISINOPRIL 5 MG TABLET (FP) PO SCH (09:47)
[2019-06-12] MEDS: HYDROCHLOROTHIAZIDE 12.5 MG CAPSULE (FP) PO SCH (09:47)
[2019-06-12] MEDS: amLODIPine BESYLATE 5 MG TABLET (FP) PO SCH (09:47)
[2019-06-12] MEDS: GABAPENTIN 300 MG CAPSULE PO SCH ×2 (09:47→21:55)
[2019-06-12] MEDS: BUDESONIDE/FORMETEROL FUMARATE 80/4.5 mcg INHALER IH SCH ×2 (09:48→21:59)
[2019-06-12] MEDS: PANTOPRAZOLE SODIUM 40 MG VIAL IVPUSH SCH ×2 (09:52→21:56)
[2019-06-12] MEDS: CEFTRIAXONE 1 GM in DEXTROSE 5%-WATER - 50 ML IVPB SCH (09:58)
--- NOTE | 2019-06-12 10:37 | PN ---
Progress Note (short form) - Note Progress Note: Feels better today. Less cough and SOB. No acute events overnight. Intake & Output 06/09/19 06/10/19 06/11/19 06/12/19 23:59 23:59 23:59 23:59 Intake Total 50 1200 0 Balance 50 1200 0 Weight 173 lb 9.6 oz Last Vital Signs Temp Pulse Resp BP Pulse Ox 98.4 F 100 H 18 142/74 99 06/12/19 06:00 06/12/19 10:00 06/12/19 10:00 06/12/19 10:00 06/11/19 21:00 Active Medications Acetaminophen (Ofirmev Injection -) 1,000 mg IVPB Q6H PRN PRN Reason: PAIN LEVEL 1-5 Stop: 06/12/19 14:11 Last Admin: 06/11/19 15:37 Dose: 1,000 mg Documented by: Albuterol/Ipratropium (Duoneb -) 1 amp NEB RQ4H [facility] Last Admin: 06/12/19 08:00 Dose: 1 amp Documented by: Amlodipine Besylate (Norvasc -) 5 mg PO DAILY [facility] Last Admin: 06/12/19 09:47 Dose: 5 mg Documented by: Aspirin (Asa -) 81 mg PO DAILY [facility] Last Admin: 06/12/19 09:47 Dose: 81 mg Documented by: Atorvastatin Calcium (Lipitor -) 20 mg PO HS [facility] Last Admin: 06/11/19 22:10 Dose: 20 mg Documented by: Budesonide/Formoterol Fumarate (Symbicort 80/4.5mcg -) 2 puff IH BID [facility] Last Admin: 06/12/19 09:48 Dose: 2 puff Documented by: Duloxetine HCl (Cymbalta -) 20 mg PO BID [facility] Last Admin: 06/12/19 09:47 Dose: 20 mg Documented by: Enoxaparin Sodium (Lovenox -) 40 mg SQ DAILY [facility] Last Admin: 06/12/19 09:45 Dose: 40 mg Documented by: Gabapentin (Neurontin -) 300 mg PO BID [facility] Last Admin: 06/12/19 09:47 Dose: 300 mg Documented by: Guaifenesin/Codeine Phosphate (Robitussin Ac -) 5 ml PO TID PRN PRN Reason: COUGH Last Admin: 06/12/19 06:00 Dose: 5 ml Documented by: Hydrochlorothiazide (Hctz -) 12.5 mg PO DAILY [facility] Last Admin: 06/12/19 09:47 Dose: 12.5 mg Documented by: Azithromycin (Zithromax 500mg Ivpb (Pre-Docked)) 500 mg in 250 mls @ 250 mls/hr IVPB DAILY [facility] Last Admin: 06/11/19 17:25 Dose: 250 mls/hr Documented by: Ceftriaxone Sodium 1 gm/ (Dextrose) 50 mls @ 100 mls/hr IVPB DAILY [facility]; Protocol Last Admin: 06/12/19 09:58 Dose: 100 mls/hr Documented by: Lisinopril (Prinivil) 5 mg PO DAILY [facility] Last Admin: 06/12/19 09:47 Dose: 5 mg Documented by: Methylprednisolone Sodium Succinate (Solu-Medrol -) 40 mg IVPUSH Q8H-IV [facility] Last Admin: 06/12/19 09:50 Dose: 40 mg Documented by: Pantoprazole Sodium (Protonix Iv) 40 mg IVPUSH BID [facility] Last Admin: 06/12/19 09:52 Dose: 40 mg Documented by: Zolpidem Tartrate (Ambien -) 5 mg PO HS PRN PRN Reason: INSOMNIA Last Admin: 06/11/19 22:10 Dose: 5 mg Documented by: GENERAL: awake, alert, and oriented, in no acute distress. HEAD: Normal with no signs of trauma. EYES: PERRL, extraocular movements intact, sclera anicteric, conjunctiva clear. No ptosis. ENT: Ears normal, nares patent, oropharynx clear without exudates, moist mucous membranes. NECK: Trachea midline, full range of motion, supple. LUNGS: Bilateral coarse breath sounds and expiratory wheezes HEART: Regular rate and rhythm, S1, S2 without murmur, rub or gallop. ABDOMEN: Soft, nontender, nondistended, normoactive bowel sounds, no guarding, no rebound, no hepatosplenomegaly, no masses. EXTREMITIES: 2+ pulses, warm, well-perfused, no edema. NEUROLOGICAL: Non-focal PSYCH: Normal mood, normal affect. SKIN: Warm, dry, normal turgor, no rashes or lesions noted Laboratory Results - last 24 hr 06/11/19 06/11/19 06/11/19 11:32 17:47 23:09 WBC RBC Hgb Hct MCV MCH MCHC RDW Plt Count MPV Absolute Neuts (auto) Neutrophils % Lymphocytes % Monocytes % Eosinophils % Basophils % Nucleated RBC % Sodium Potassium Chloride Carbon Dioxide Anion Gap BUN Creatinine Est GFR (CKD-EPI)AfAm Est GFR (CKD-EPI)NonAf POC Glucometer 150 163 182 Random Glucose Calcium Total Bilirubin AST ALT Alkaline Phosphatase Total Protein Albumin 06/12/19 06/12/19 06/12/19 06:32 07:25 07:25 WBC 10.4 H RBC 3.72 Hgb 11.8 Hct 34.2 MCV 92.1 MCH 31.8 MCHC 34.5 RDW 13.5 Plt Count 441 H MPV 6.9 L Absolute Neuts (auto) 9.3 H Neutrophils % 89.3 H Lymphocytes % 7.3 L D Monocytes % 3.3 L Eosinophils % 0.0 D Basophils % 0.1 Nucleated RBC % 0 Sodium 134 L Potassium 4.4 Chloride 98 Carbon Dioxide 27 Anion Gap 9 BUN 8.2 Creatinine 0.6 Est GFR (CKD-EPI)AfAm 98.38 Est GFR (CKD-EPI)NonAf 84.88 POC Glucometer 160 Random Glucose 156 H Calcium 9.7 Total Bilirubin 0.9 AST 17 ALT 17 Alkaline Phosphatase 77 Total Protein 7.7 Albumin 3.5 Problem List - Problems (1) Cough Code(s): R05 - COUGH (2) Bronchitis Code(s): J40 - BRONCHITIS, NOT SPECIFIED ACUTE OR CHRONIC (3) Pneumonia Code(s): J18.9 - PNEUMONIA, UNSPECIFIED ORGANISM Qualifiers: Pneumonia type: due to unspecified organism Laterality: left Lung location: lower lobe of lung Qualified Code(s): J18.9 - Pneumonia, unspecified organism IMP DYSPNEA/CONGESTION,HYPOXEMIA LLL PNA ACUTE BRONCHITIS SUBCENTIMETER NODULES: LARGEST MEASURES 4 MM HTN HLD PLAN ABX SUPPLEMENTAL O2 NEEDED IV STEROIDS INHALED BRONCHODILATORS COUGH MEDS CHEST CT FOLLOW UP AN OUTPATIENT DR KIRBY
[2019-06-12] MEDS: AZITHROMYCIN IVPB 500 MG/250 ML BAG IVPB SCH (11:41)
--- NOTE | 2019-06-12 18:53 | PN ---
Teaching Attending Note Name of Resident: Meek Nuñez ATTENDING PHYSICIAN STATEMENT I saw and evaluated the patient. I reviewed the resident's note and discussed the case with the resident. I agree with the resident's findings and plan as documented. SUBJECTIVE: Patient seen and examined at bedside, feeling better, denies SOB, breathing more comfortably, VSS. OBJECTIVE: GA comfortable, AAox3, speaking in full sentences HEENT NC/AT, EOMI, neck supple, dry MM Chest CTAB, no wheezing or crackles CVS S1, S2+, RRR Abd Soft, nT, ND, BS+, no guarding Ext no LE edema, no calf tenderness Vital Signs - 24 hr 06/11/19 06/11/19 06/12/19 21:00 22:00 02:00 Temperature 98.2 F 98.7 F Pulse Rate 101 H 110 H Respiratory 20 20 Rate Blood Pressure 154/77 133/63 O2 Sat by Pulse 99 Oximetry (%) 06/12/19 06/12/19 06/12/19 06:00 09:00 10:00 Temperature 98.4 F Pulse Rate 60 100 H Respiratory 20 18 Rate Blood Pressure 121/60 142/74 O2 Sat by Pulse 95 Oximetry (%) 06/12/19 06/12/19 14:00 18:00 Temperature 98.3 F 97.8 F Pulse Rate 95 H 96 H Respiratory 18 18 Rate Blood Pressure 119/73 145/74 O2 Sat by Pulse Oximetry (%) Microbiology 06/11/19 16:00 Nasopharyngeal Swab Bordetella pertussis DNA (PCR) - Preliminary 06/11/19 16:00 Nasopharyngeal Swab Bordetella paraper/pertuss DNA (PCR - Preliminary 06/11/19 22:45 Urine For Antigen Detection Legionella Antigen - Final 06/11/19 22:45 Urine For Antigen Detection Streptococcus pneumoniae Antigen (M - Final 06/11/19 10:10 Sputum - Expectorated Gram Stain - Final 06/11/19 10:10 Sputum - Expectorated Sputum Culture - Preliminary NORMAL RESPIRATORY [place] 06/11/19 01:45 Urine - Urine Clean Catch Urine Culture - Final Staphylococcus Coagulase Neg 06/10/19 18:46 Blood - Peripheral Venous Blood Culture - Preliminary NO GROWTH OBTAINED AFTER 24 HOURS, INCUBATION TO CONTINUE FOR 4 DAYS. 06/10/19 18:46 Blood - Peripheral Venous Blood Culture - Preliminary NO GROWTH OBTAINED AFTER 24 HOURS, INCUBATION TO CONTINUE FOR 4 DAYS. Laboratory Results - last 24 hr 06/11/19 06/12/19 06/12/19 23:09 06:32 07:25 WBC 10.4 H RBC 3.72 Hgb 11.8 Hct 34.2 MCV 92.1 MCH 31.8 MCHC 34.5 RDW 13.5 Plt Count 441 H MPV 6.9 L Absolute Neuts (auto) 9.3 H Neutrophils % 89.3 H Lymphocytes % 7.3 L D Monocytes % 3.3 L Eosinophils % 0.0 D Basophils % 0.1 Nucleated RBC % 0 Sodium Potassium Chloride Carbon Dioxide Anion Gap BUN Creatinine Est GFR (CKD-EPI)AfAm Est GFR (CKD-EPI)NonAf POC Glucometer 182 160 Random Glucose Calcium Total Bilirubin AST ALT Alkaline Phosphatase Total Protein Albumin 06/12/19 06/12/19 07:25 16:44 WBC RBC Hgb Hct MCV MCH MCHC RDW Plt Count MPV Absolute Neuts (auto) Neutrophils % Lymphocytes % Monocytes % Eosinophils % Basophils % Nucleated RBC % Sodium 134 L Potassium 4.4 Chloride 98 Carbon Dioxide 27 Anion Gap 9 BUN 8.2 Creatinine 0.6 Est GFR (CKD-EPI)AfAm 98.38 Est GFR (CKD-EPI)NonAf 84.88 POC Glucometer 147 Random Glucose 156 H Calcium 9.7 Total Bilirubin 0.9 AST 17 ALT 17 Alkaline Phosphatase 77 Total Protein 7.7 Albumin 3.5 Home Medications Medication Instructions Recorded Amlodipine Besylate [Norvasc -] 5 mg PO DAILY 12/04/18 Atorvastatin Ca [Lipitor] 20 mg PO HS 12/04/18 Duloxetine HCl [Cymbalta] 20 mg PO BID 12/04/18 Gabapentin [Neurontin] 300 mg PO BID 12/04/18 Lisinopril [Prinivil] 5 mg PO DAILY 06/10/19 Omeprazole 20 mg PO DAILY 06/10/19 Zolpidem Tartrate [Ambien] 10 mg PO HS 06/10/19 Hydrocodone/Acetaminophen 1 each PO Q6H PRN 06/11/19 [Hydrocodon-Acetaminophn 10-325] Current Medications Generic Name Dose Route Start Last Admin Trade Name Freq PRN Reason Stop Dose Admin Acetaminophen 325 mg 06/12/19 17:29 Tylenol - PO Q6H PRN PAIN LEVEL 7-10 Albuterol/Ipratropium 1 amp 06/11/19 00:00 06/12/19 15:32 Duoneb - NEB Not Given RQ4H JANNETH Amlodipine Besylate 5 mg 06/11/19 15:15 06/12/19 09:47 Norvasc - PO 5 mg DAILY JANNETH Administration Aspirin 81 mg 06/12/19 10:00 06/12/19 09:47 Asa - PO 81 mg DAILY JANNETH Administration Atorvastatin Calcium 20 mg 06/11/19 22:00 06/11/19 22:10 Lipitor - PO 20 mg HS JANNETH Administration Budesonide/Formoterol Fumarate 2 puff 06/10/19 23:30 06/12/19 09:48 Symbicort 80/4.5mcg - IH 2 puff BID JANNETH Administration Duloxetine HCl 20 mg 06/11/19 10:00 06/12/19 09:47 Cymbalta - PO 20 mg BID JANNETH Administration Enoxaparin Sodium 40 mg 06/11/19 10:00 06/12/19 09:45 Lovenox - SQ 40 mg DAILY JANNETH Administration Gabapentin 300 mg 06/11/19 10:00 06/12/19 09:47 Neurontin - PO 300 mg BID JANNETH Administration Guaifenesin/Codeine Phosphate 5 ml 06/11/19 13:51 06/12/19 15:15 Robitussin Ac - PO 5 ml TID PRN Administration COUGH Hydrochlorothiazide 12.5 mg 06/11/19 10:00 06/12/19 09:47 Hctz - PO 12.5 mg DAILY JANNETH Administration Azithromycin 500 mg in 250 mls @ 250 mls/hr 06/11/19 15:00 06/12/19 11:41 Zithromax 500mg Ivpb (Pre-Docked) IVPB 250 mls/hr DAILY JANNETH Administration Ceftriaxone Sodium 1 gm/ 50 mls @ 100 mls/hr 06/11/19 15:00 06/12/19 09:58 Dextrose IVPB 100 mls/hr DAILY JANNETH Administration Protocol Lisinopril 5 mg 06/11/19 15:15 06/12/19 09:47 Prinivil PO 5 mg DAILY JANNETH Administration Methylprednisolone Sodium Succinate 40 mg 06/11/19 18:00 06/12/19 17:10 Solu-Medrol - IVPUSH 40 mg Q8H-IV JANNETH Administration Oxycodone HCl 10 mg 06/12/19 17:29 Roxicodone - PO Q6H PRN PAIN LEVEL 7-10 Pantoprazole Sodium 40 mg 06/11/19 10:00 06/12/19 09:52 Protonix Iv IVPUSH 40 mg BID JANNETH Administration Polyethylene Glycol 17 gm 06/12/19 22:00 Miralax (For Daily Use) - PO BID JANNETH Senna/Docusate Sodium 2 tablet 06/12/19 22:00 Pericolace - PO 06/13/19 11:16 HS JANNETH Zolpidem Tartrate 5 mg 06/11/19 22:00 06/11/19 22:10 Ambien - PO 5 mg HS PRN Administration INSOMNIA ASSESSMENT AND PLAN: 84 Portugese/Indonesian speaking female w/ h/o HTN, HLD, GERD, ?trigeminal neuralgia, fibromyalgia, depression who presents with LLL PNA. LLL PNA Cont. IV Azithro/Ceftriaxone, transition to PO abx IV steroids PRN for wheezing transition to PO Prednisone, O2 as needed, incentive spirometer Pulmonary evaluation: Dr Medel HTN restart BP meds, hold Lisinopril in view of cough Fibromyalgia/?trigeminal neuralgia resolved after starting Cymbalta/Gabapentin HLD cont. statin GERD PPI PRN DVT ppx: Lovenox 40 mg SQ Daily Med Surg
[2019-06-12] MEDS ORDERED: PT OWN MED DRAWER 7, Y5N ONE (21:39)
[2019-06-12] MEDS: POLYETHYLENE GLYCOL 3350 119 GM BTL PO SCH (21:54)
[2019-06-12] MEDS: ATORVASTATIN CA 20 MG TABLET (FP) PO SCH (21:54)
[2019-06-12] MEDS ORDERED: SENNOSIDES/DOCUSATE COMBO (SENNA PLUS) TABLET (UD) PO SCH (22:00)
[2019-06-13] MEDS: ALBUTEROL SO4 2.5/IPRATROPIUM 0.5 INH SOL 3 ML VIAL.NEB. NEB SCH ×7 (00:34→23:54)
[2019-06-13] MEDS: methylPREDNISolone NA SUCC 40 MG/1 ML VIAL IVPUSH SCH ×2 (01:04→09:54)
[2019-06-13] MEDS: oxyCODONE HCL 5 MG TABLET PO PRN ×3 (01:05→22:44)
[2019-06-13] MEDS: ACETAMINOPHEN 325 MG TABLET (FP) PO PRN ×2 (01:05→22:45)
[2019-06-13 08:18] LABS: BASO % 0.1 % (0-2.0); HEMATOCRIT 32.5 % (32.4-45.2); HEMOGLOBIN 11.2 GM/dL (10.7-15.3); LYMPH % 5.8 % (8-40); MCH 31.8 pg (25.7-33.7); MCHC 34.5 g/dl (32.0-36.0); MEAN CELL VOLUME 92.2 fl (80-96); MONO % 4.1 % (3.8-10.2); PLATELET COUNT 418 K/MM3 (134-434); RBC 3.53 M/mm3 (3.60-5.2); RDW 13.4 % (11.6-15.6); WHITE BLOOD COUNT 12.1 K/mm3 (4.0-10.0)
[2019-06-13 08:57] LABS: ALBUMIN 3.4 g/dl (3.4-5.0); BILIRUBIN,TOTAL 0.4 mg/dL (0.2-1); BLOOD UREA NITROGEN 12.9 mg/dL (7-18); CALCIUM 9.4 mg/dL (8.5-10.1); CREATININE 0.8 mg/dL (0.55-1.3); POTASSIUM 4.2 mmol/L (3.5-5.1); TOT PROT 7.5 g/dl (6.4-8.2)
[2019-06-13] MEDS ORDERED: cefTRIAXone SODIUM 1 GM VIAL ONE (09:27)
[2019-06-13] MEDS ORDERED: PT OWN MED DRAWER 7, Y5N ONE ×3 (09:27→21:21)
[2019-06-13] MEDS ORDERED: DEXTROSE 5%-WATER - 50 ML IVPB ONE (09:28)
[2019-06-13] MEDS: POLYETHYLENE GLYCOL 3350 119 GM BTL PO SCH ×2 (09:53→21:42)
[2019-06-13] MEDS: ASPIRIN 81 MG CHEWABLE TABLETS PO SCH (09:54)
[2019-06-13] MEDS: GABAPENTIN 300 MG CAPSULE PO SCH ×2 (09:54→21:34)
[2019-06-13] MEDS: LISINOPRIL 5 MG TABLET (FP) PO SCH (09:54)
[2019-06-13] MEDS: DULoxetine HCL 20 MG CAPSULE.DR PO SCH ×2 (09:54→21:34)
[2019-06-13] MEDS: PANTOPRAZOLE SODIUM 40 MG VIAL IVPUSH SCH ×2 (09:54→21:35)
[2019-06-13] MEDS: amLODIPine BESYLATE 5 MG TABLET (FP) PO SCH (09:54)
[2019-06-13] MEDS: CEFTRIAXONE 1 GM in DEXTROSE 5%-WATER - 50 ML IVPB SCH (09:54)
[2019-06-13] MEDS: HYDROCHLOROTHIAZIDE 12.5 MG CAPSULE (FP) PO SCH (09:55)
[2019-06-13] MEDS: ENOXAPARIN NA (PORCINE) 40 MG/0.4 ML DISP.SYRIN SQ SCH (09:55)
[2019-06-13] MEDS: BUDESONIDE/FORMETEROL FUMARATE 80/4.5 mcg INHALER IH SCH ×2 (09:57→21:48)
[2019-06-13] MEDS: guaiFENesin/CODEINE 5 ML UNIT-DOSE CUPS PO PRN ×2 (10:21→21:35)
[2019-06-13] MEDS ORDERED: SODIUM CHLORIDE 0.9% 500 ML INFUS.BAG IV ONE (11:18)
--- NOTE | 2019-06-13 14:05 | PN ---
Progress Note, Physician History of Present Illness: PULMONARY ALERT,OOB-CHAIR,FEELING BETTER,LESS COUGH,LESS CONGESTED - Current Medication List Current Medications: Active Medications Acetaminophen (Tylenol -) 325 mg PO Q6H PRN PRN Reason: PAIN LEVEL 7-10 Last Admin: 06/13/19 01:05 Dose: 325 mg Documented by: Albuterol/Ipratropium (Duoneb -) 1 amp NEB RQ4H [facility] Last Admin: 06/13/19 12:03 Dose: 1 amp Documented by: Amlodipine Besylate (Norvasc -) 5 mg PO DAILY [facility] Last Admin: 06/13/19 09:54 Dose: 5 mg Documented by: Aspirin (Asa -) 81 mg PO DAILY [facility] Last Admin: 06/13/19 09:54 Dose: 81 mg Documented by: Atorvastatin Calcium (Lipitor -) 20 mg PO HS [facility] Last Admin: 06/12/19 21:54 Dose: 20 mg Documented by: Budesonide/Formoterol Fumarate (Symbicort 80/4.5mcg -) 2 puff IH BID [facility] Last Admin: 06/13/19 09:57 Dose: 2 puff Documented by: Duloxetine HCl (Cymbalta -) 20 mg PO BID [facility] Last Admin: 06/13/19 09:54 Dose: 20 mg Documented by: Enoxaparin Sodium (Lovenox -) 40 mg SQ DAILY [facility] Last Admin: 06/13/19 09:55 Dose: 40 mg Documented by: Gabapentin (Neurontin -) 300 mg PO BID [facility] Last Admin: 06/13/19 09:54 Dose: 300 mg Documented by: Guaifenesin/Codeine Phosphate (Robitussin Ac -) 5 ml PO TID PRN PRN Reason: COUGH Last Admin: 06/13/19 10:21 Dose: 5 ml Documented by: Hydrochlorothiazide (Hctz -) 12.5 mg PO DAILY [facility] Last Admin: 06/13/19 09:55 Dose: 12.5 mg Documented by: Azithromycin (Zithromax 500mg Ivpb (Pre-Docked)) 500 mg in 250 mls @ 250 mls/hr IVPB DAILY [facility] Last Admin: 06/12/19 11:41 Dose: 250 mls/hr Documented by: Ceftriaxone Sodium 1 gm/ (Dextrose) 50 mls @ 100 mls/hr IVPB DAILY [facility]; Protocol Last Admin: 06/13/19 09:54 Dose: 100 mls/hr Documented by: Lisinopril (Prinivil) 5 mg PO DAILY [facility] Last Admin: 06/13/19 09:54 Dose: 5 mg Documented by: Methylprednisolone Sodium Succinate (Solu-Medrol -) 40 mg IVPUSH Q8H-IV [facility] Last Admin: 06/13/19 09:54 Dose: 40 mg Documented by: Oxycodone HCl (Roxicodone -) 10 mg PO Q6H PRN PRN Reason: PAIN LEVEL 7-10 Last Admin: 06/13/19 01:05 Dose: 10 mg Documented by: Pantoprazole Sodium (Protonix Iv) 40 mg IVPUSH BID [facility] Last Admin: 06/13/19 09:54 Dose: 40 mg Documented by: Polyethylene Glycol (Miralax (For Daily Use) -) 17 gm PO BID [facility] Last Admin: 06/13/19 09:53 Dose: 17 gm Documented by: Zolpidem Tartrate (Ambien -) 5 mg PO HS PRN PRN Reason: INSOMNIA Last Admin: 06/11/19 22:10 Dose: 5 mg Documented by: - Objective Vital Signs: Vital Signs Temperature 98.9 F 06/13/19 09:52 Pulse Rate 90 06/13/19 11:55 Respiratory Rate 24 H 06/13/19 11:55 Blood Pressure 93/75 06/13/19 11:55 O2 Sat by Pulse Oximetry (%) 96 06/13/19 10:30 Constitutional: Yes: Well Nourished, Calm Eyes: Yes: WNL HENT: Yes: WNL Neck: Yes: WNL Cardiovascular: Yes: Regular Rate and Rhythm, S1, S2 Respiratory: Yes: Rhonchi (FEW SCATTERED WHEEZES AND RHONCHI), Wheezes Gastrointestinal: Yes: Normal Bowel Sounds, Soft Extremities: Yes: WNL Edema: Yes Labs: CBC, BMP 06/13/19 07:35 06/13/19 07:35 INR, PTT INR 1.02 (0.83-1.09) 06/10/19 22:40 - ....Imaging Cat Scan: Report Reviewed, Image Reviewed Problem List - Problems (1) Cough Code(s): R05 - COUGH (2) Bronchitis Code(s): J40 - BRONCHITIS, NOT SPECIFIED ACUTE OR CHRONIC (3) Pneumonia Code(s): J18.9 - PNEUMONIA, UNSPECIFIED ORGANISM Qualifiers: Pneumonia type: due to unspecified organism Laterality: left Lung location: lower lobe of lung Qualified Code(s): J18.9 - Pneumonia, unspecified organism Assessment/Plan IMP DYSPNEA/CONGESTION,HYPOXEMIA ACUTE BRONCHITIS LIKELY SECONDARY TO RECENT URI PNEUMONIA HTN HLD PLAN ABX O2 STEROID TAPER INHALED BRONCHODILATORS COUGH MEDS DR STEEN Problem List - Problems (1) Cough Code(s): R05 - COUGH (2) Bronchitis Code(s): J40 - BRONCHITIS, NOT SPECIFIED ACUTE OR CHRONIC (3) Pneumonia Code(s): J18.9 - PNEUMONIA, UNSPECIFIED ORGANISM Qualifiers: Pneumonia type: due to unspecified organism Laterality: left Lung location: lower lobe of lung Qualified Code(s): J18.9 - Pneumonia, unspecified organism
[2019-06-13] MEDS: AZITHROMYCIN IVPB 500 MG/250 ML BAG IVPB SCH (14:10)
[2019-06-13] MEDS: predniSONE 20 MG TABLET (UD) PO SCH (14:33)
[2019-06-13] MEDS: AMOX TR/POT CLAV 875MG/125MG TABLETS (FP) PO SCH (18:05)
--- NOTE | 2019-06-13 20:50 | PN ---
Physical Exam: SUBJECTIVE: Patient seen and examined at bedside, improving clinically, endorses improvement with SOB/RING, will get pre-post O2 levels, VS otherwise stable, steroids/abx transitioned to PO. OBJECTIVE: GA comfortable, AAox3, speaking in full sentences HEENT NC/AT, EOMI, neck supple, dry MM Chest good air entry b/l, no audible wheezing or crackles CVS S1, S2+, RRR Abd Soft, nT, ND, BS+, no guarding Ext no LE edema, no calf tenderness Vital Signs - 24 hr 06/12/19 06/12/19 06/13/19 21:00 22:00 06:00 Temperature 98.1 F 98.2 F Pulse Rate 99 H 107 H Respiratory 18 18 Rate Blood Pressure 150/77 123/61 O2 Sat by Pulse 95 Oximetry (%) 06/13/19 06/13/19 06/13/19 09:52 10:00 10:30 Temperature 98.9 F Pulse Rate 105 H Respiratory 24 H Rate Blood Pressure 143/62 O2 Sat by Pulse 96 96 Oximetry (%) 06/13/19 06/13/19 06/13/19 11:55 14:00 18:00 Temperature 99.0 F 98.2 F Pulse Rate 90 100 H 106 H Respiratory 24 H 20 18 Rate Blood Pressure 93/75 139/60 142/66 O2 Sat by Pulse Oximetry (%) Microbiology 06/10/19 18:46 Blood - Peripheral Venous Blood Culture - Preliminary NO GROWTH OBTAINED AFTER 72 HOURS, INCUBATION TO CONTINUE FOR 2 DAYS. 06/10/19 18:46 Blood - Peripheral Venous Blood Culture - Preliminary NO GROWTH OBTAINED AFTER 72 HOURS, INCUBATION TO CONTINUE FOR 2 DAYS. 06/11/19 10:10 Sputum - Expectorated Gram Stain - Final 06/11/19 10:10 Sputum - Expectorated Sputum Culture - Final NORMAL RESPIRATORY [place] 06/11/19 16:00 Nasopharyngeal Swab Bordetella pertussis DNA (PCR) - Preliminary 06/11/19 16:00 Nasopharyngeal Swab Bordetella paraper/pertuss DNA (PCR - Preliminary 06/11/19 22:45 Urine For Antigen Detection Legionella Antigen - Final 06/11/19 22:45 Urine For Antigen Detection Streptococcus pneumoniae Antigen (M - Final 06/11/19 01:45 Urine - Urine Clean Catch Urine Culture - Final Staphylococcus Coagulase Neg Laboratory Results - last 24 hr 06/11/19 06/12/19 06/13/19 16:05 21:46 06:42 WBC RBC Hgb Hct MCV MCH MCHC RDW Plt Count MPV Absolute Neuts (auto) Neutrophils % Lymphocytes % Monocytes % Eosinophils % Basophils % Nucleated RBC % Sodium Potassium Chloride Carbon Dioxide Anion Gap BUN Creatinine Est GFR (CKD-EPI)AfAm Est GFR (CKD-EPI)NonAf POC Glucometer 179 155 Random Glucose Calcium Total Bilirubin AST ALT Alkaline Phosphatase Total Protein Albumin Lyme Screen IgG & IgM <0.91 06/13/19 06/13/19 07:35 07:35 WBC 12.1 H RBC 3.53 L Hgb 11.2 Hct 32.5 MCV 92.2 MCH 31.8 MCHC 34.5 RDW 13.4 Plt Count 418 MPV 7.0 L Absolute Neuts (auto) 10.9 H Neutrophils % 90.0 H Lymphocytes % 5.8 L D Monocytes % 4.1 Eosinophils % 0.0 Basophils % 0.1 Nucleated RBC % 0 Sodium 129 L Potassium 4.2 Chloride 91 L Carbon Dioxide 26 Anion Gap 12 BUN 12.9 Creatinine 0.8 Est GFR (CKD-EPI)AfAm 79.57 Est GFR (CKD-EPI)NonAf 68.66 POC Glucometer Random Glucose 166 H Calcium 9.4 Total Bilirubin 0.4 AST 22 ALT 20 Alkaline Phosphatase 69 Total Protein 7.5 Albumin 3.4 Lyme Screen IgG & IgM Home Medications Medication Instructions Recorded Amlodipine Besylate [Norvasc -] 5 mg PO DAILY 12/04/18 Atorvastatin Ca [Lipitor] 20 mg PO HS 12/04/18 Duloxetine HCl [Cymbalta] 20 mg PO BID 12/04/18 Gabapentin [Neurontin] 300 mg PO BID 12/04/18 Lisinopril [Prinivil] 5 mg PO DAILY 06/10/19 Omeprazole 20 mg PO DAILY 06/10/19 Zolpidem Tartrate [Ambien] 10 mg PO HS 06/10/19 Hydrocodone/Acetaminophen 1 each PO Q6H PRN 06/11/19 [Hydrocodon-Acetaminophn 10-325] Current Medications Generic Name Dose Route Start Last Admin Trade Name Freq PRN Reason Stop Dose Admin Acetaminophen 325 mg 06/12/19 17:29 06/13/19 01:05 Tylenol - PO 325 mg Q6H PRN Administration PAIN LEVEL 7-10 Albuterol/Ipratropium 1 amp 06/11/19 00:00 06/13/19 15:43 Duoneb - NEB 1 amp RQ4H [facility] Administration Amlodipine Besylate 5 mg 06/11/19 15:15 06/13/19 09:54 Norvasc - PO 5 mg DAILY [facility] Administration Amoxicillin/Clavulanate Potassium 1 tab 06/13/19 17:30 06/13/19 18:05 Augmentin - 875mg Tablet PO 1 tab BID@0800,1730 [facility]AN[facility] Administration Aspirin 81 mg 06/12/19 10:00 06/13/19 09:54 Asa - PO 81 mg DAILY [facility] Administration Atorvastatin Calcium 20 mg 06/11/19 22:00 06/12/19 21:54 Lipitor - PO 20 mg HS [facility]AN[facility] Administration Budesonide/Formoterol Fumarate 2 puff 06/10/19 23:30 06/13/19 09:57 Symbicort 80/4.5mcg - IH 2 puff BID [facility] Administration Duloxetine HCl 20 mg 06/11/19 10:00 06/13/19 09:54 Cymbalta - PO 20 mg BID [facility] Administration Enoxaparin Sodium 40 mg 06/11/19 10:00 06/13/19 09:55 Lovenox - SQ 40 mg DAILY [facility] Administration Gabapentin 300 mg 06/11/19 10:00 06/13/19 09:54 Neurontin - PO 300 mg BID [facility] Administration Guaifenesin/Codeine Phosphate 5 ml 06/11/19 13:51 06/13/19 10:21 Robitussin Ac - PO 5 ml TID PRN Administration COUGH Hydrochlorothiazide 12.5 mg 06/11/19 10:00 06/13/19 09:55 Hctz - PO 12.5 mg DAILY [facility] Administration Lisinopril 5 mg 06/11/19 15:15 06/13/19 09:54 Prinivil PO 5 mg DAILY [facility] Administration Oxycodone HCl 10 mg 06/12/19 17:29 06/13/19 16:44 Roxicodone - PO 10 mg Q6H PRN Administration PAIN LEVEL 7-10 Pantoprazole Sodium 40 mg 06/11/19 10:00 06/13/19 09:54 Protonix Iv IVPUSH 40 mg BID [facility] Administration Polyethylene Glycol 17 gm 06/12/19 22:00 06/13/19 09:53 Miralax (For Daily Use) - PO 17 gm BID [facility] Administration Prednisone 40 mg 06/13/19 14:15 06/13/19 14:33 Deltasone - PO Not Given DAILY [facility] Zolpidem Tartrate 5 mg 06/11/19 22:00 06/11/19 22:10 Ambien - PO 5 mg HS PRN Administration INSOMNIA ASSESSMENT AND PLAN: 84 Portugese/Norwegian speaking female w/ h/o HTN, HLD, GERD, ?trigeminal neuralgia, fibromyalgia, depression who presents with LLL PNA. LLL PNA DC IV abx and transition to PO Augmentin 875mg BID to complete 7-10 days legionella neg, viral panel neg. PO steroids, O2 as needed, incentive spirometer pre-post O2 saturations (without supplemental O2) to assess for home O2 Pulmonary evaluation: Dr Medel HTN cont. BP meds, hold Lisinopril in view of cough Fibromyalgia/?trigeminal neuralgia as per resident, pt. c/o tongue numbness/L facial numbess CT brain unremarkable cont. Cymbalta, pt. denies recurrent symptoms since starting Cymbalta HLD cont. statin GERD PPI PRN DVT ppx: Lovenox 40 mg SQ Daily Med Surg Visit type - Emergency Visit Emergency Visit: Yes ED Registration Date: 06/10/19 Care time: The patient presented to the Emergency Department on the above date and was hospitalized for further evaluation of their emergent condition. - New Patient This patient is new to me today: No - Critical Care Critical Care patient: No - Discharge Referral Referred to [facility] Med P.C.: No
[2019-06-13] MEDS: ATORVASTATIN CA 20 MG TABLET (FP) PO SCH (21:34)
[2019-06-13] MEDS: ZOLPIDEM TARTRATE 5 MG TABLET PO PRN (22:44)
[2019-06-14] MEDS: ALBUTEROL SO4 2.5/IPRATROPIUM 0.5 INH SOL 3 ML VIAL.NEB. NEB SCH ×5 (04:19→20:35)
[2019-06-14] MEDS: ACETAMINOPHEN 325 MG TABLET (FP) PO PRN ×2 (05:48→16:20)
[2019-06-14] MEDS: oxyCODONE HCL 5 MG TABLET PO PRN ×2 (05:49→16:08)
[2019-06-14 08:14] LABS: BASO % 0.1 % (0-2.0); EOS % 0.4 % (0-4.5); HEMATOCRIT 32.1 % (32.4-45.2); HEMOGLOBIN 11.1 GM/dL (10.7-15.3); LYMPH % 21.5 % (8-40); MCH 31.9 pg (25.7-33.7); MCHC 34.6 g/dl (32.0-36.0); MEAN CELL VOLUME 92.2 fl (80-96); MEAN PLT VOLUME 6.7 fl (7.5-11.1); MONO % 12.3 % (3.8-10.2); NEUT % 65.7 % (42.8-82.8); PLATELET COUNT 385 K/MM3 (134-434); RBC 3.49 M/mm3 (3.60-5.2); RDW 13.4 % (11.6-15.6); WHITE BLOOD COUNT 9.1 K/mm3 (4.0-10.0)
[2019-06-14 08:35] LABS: BLOOD UREA NITROGEN 12.9 mg/dL (7-18); CALCIUM 8.9 mg/dL (8.5-10.1); CREATININE 0.7 mg/dL (0.55-1.3); POTASSIUM 4.1 mmol/L (3.5-5.1)
[2019-06-14] MEDS ORDERED: PT OWN MED DRAWER 7, Y5N ONE ×2 (10:28→21:23)
[2019-06-14] MEDS: predniSONE 20 MG TABLET (UD) PO SCH (10:39)
[2019-06-14] MEDS: ASPIRIN 81 MG CHEWABLE TABLETS PO SCH (10:39)
[2019-06-14] MEDS: amLODIPine BESYLATE 5 MG TABLET (FP) PO SCH (10:39)
[2019-06-14] MEDS: LISINOPRIL 5 MG TABLET (FP) PO SCH (10:39)
[2019-06-14] MEDS: AMOX TR/POT CLAV 875MG/125MG TABLETS (FP) PO SCH ×2 (10:39→17:43)
[2019-06-14] MEDS: HYDROCHLOROTHIAZIDE 12.5 MG CAPSULE (FP) PO SCH (10:39)
[2019-06-14] MEDS: GABAPENTIN 300 MG CAPSULE PO SCH ×2 (10:39→21:24)
[2019-06-14] MEDS: DULoxetine HCL 20 MG CAPSULE.DR PO SCH ×2 (10:40→21:24)
[2019-06-14] MEDS: ENOXAPARIN NA (PORCINE) 40 MG/0.4 ML DISP.SYRIN SQ SCH (10:40)
[2019-06-14] MEDS: PANTOPRAZOLE SODIUM 40 MG VIAL IVPUSH SCH ×2 (10:40→11:06)
[2019-06-14] MEDS: POLYETHYLENE GLYCOL 3350 119 GM BTL PO SCH ×3 (10:43→21:50)
[2019-06-14] MEDS: BUDESONIDE/FORMETEROL FUMARATE 80/4.5 mcg INHALER IH SCH ×2 (10:44→21:25)
--- NOTE | 2019-06-14 11:05 | PN ---
Physical Exam: SUBJECTIVE: Patient seen and examined. She complains of cough. She denies SOB. OBJECTIVE: Vital Signs Period Temp Pulse Resp BP Sys/Fitzpatrick Pulse Ox Last 24 Hr 98.1 F-99.0 F 89-106 18-24 93-150/56-75 96 GENERAL: The patient is awake, alert, and fully oriented, in no acute distress. LUNGS: Breath sounds equal, few rhonchi bilaterally, no wheezes, no crackles, no accessory muscle use. HEART: Regular rate and rhythm, S1, S2 without murmur, rub or gallop. ABDOMEN: Soft, nontender, nondistended, normoactive bowel sounds, no guarding, no rebound, no hepatosplenomegaly, no masses. EXTREMITIES: 2+ pulses, warm, well-perfused, no edema. Laboratory Results - last 24 hr 06/11/19 06/13/19 06/14/19 16:05 21:28 05:55 WBC RBC Hgb Hct MCV MCH MCHC RDW Plt Count MPV Absolute Neuts (auto) Neutrophils % Lymphocytes % Monocytes % Eosinophils % Basophils % Nucleated RBC % Sodium Potassium Chloride Carbon Dioxide Anion Gap BUN Creatinine Est GFR (CKD-EPI)AfAm Est GFR (CKD-EPI)NonAf POC Glucometer 143 103 Random Glucose Calcium Lyme Screen IgG & IgM <0.91 06/14/19 06/14/19 07:45 07:45 WBC 9.1 RBC 3.49 L Hgb 11.1 Hct 32.1 L MCV 92.2 MCH 31.9 MCHC 34.6 RDW 13.4 Plt Count 385 MPV 6.7 L Absolute Neuts (auto) 6.0 Neutrophils % 65.7 D Lymphocytes % 21.5 D Monocytes % 12.3 H D Eosinophils % 0.4 D Basophils % 0.1 Nucleated RBC % 0 Sodium 129 L Potassium 4.1 Chloride 93 L Carbon Dioxide 29 Anion Gap 7 L BUN 12.9 Creatinine 0.7 Est GFR (CKD-EPI)AfAm 93.52 Est GFR (CKD-EPI)NonAf 80.69 POC Glucometer Random Glucose 96 Calcium 8.9 Lyme Screen IgG & IgM Active Medications Generic Name Dose Route Start Last Admin Trade Name Freq PRN Reason Stop Dose Admin Acetaminophen 325 mg 06/12/19 17:29 06/14/19 05:48 Tylenol - PO 325 mg Q6H PRN Administration PAIN LEVEL 7-10 Albuterol/Ipratropium 1 amp 06/11/19 00:00 06/14/19 07:30 Duoneb - NEB 1 amp RQ4H [facility] Administration Amlodipine Besylate 5 mg 06/11/19 15:15 06/14/19 10:39 Norvasc - PO 5 mg DAILY [facility] Administration Amoxicillin/Clavulanate Potassium 1 tab 06/13/19 17:30 06/14/19 10:39 Augmentin - 875mg Tablet PO 1 tab BID@0800,1730 [facility]AN[facility] Administration Aspirin 81 mg 06/12/19 10:00 06/14/19 10:39 Asa - PO 81 mg DAILY [facility] Administration Atorvastatin Calcium 20 mg 06/11/19 22:00 06/13/19 21:34 Lipitor - PO 20 mg HS JANNETH Administration Budesonide/Formoterol Fumarate 2 puff 06/10/19 23:30 06/14/19 10:44 Symbicort 80/4.5mcg - IH 2 puff BID [facility]ANNET[facility] Administration Duloxetine HCl 20 mg 06/11/19 10:00 06/14/19 10:40 Cymbalta - PO 20 mg BID [facility]AN[facility] Administration Enoxaparin Sodium 40 mg 06/11/19 10:00 06/14/19 10:40 Lovenox - SQ 40 mg DAILY [facility] Administration Gabapentin 300 mg 06/11/19 10:00 06/14/19 10:39 Neurontin - PO 300 mg BID [facility]ANNET[facility] Administration Guaifenesin/Codeine Phosphate 5 ml 06/11/19 13:51 06/13/19 21:35 Robitussin Ac - PO 5 ml TID PRN Administration COUGH Hydrochlorothiazide 12.5 mg 06/11/19 10:00 06/14/19 10:39 Hctz - PO 12.5 mg DAILY [facility] Administration Lisinopril 5 mg 06/11/19 15:15 06/14/19 10:39 Prinivil PO 5 mg DAILY [facility] Administration Oxycodone HCl 10 mg 06/12/19 17:29 06/14/19 05:49 Roxicodone - PO 10 mg Q6H PRN Administration PAIN LEVEL 7-10 Pantoprazole Sodium 40 mg 06/11/19 10:00 06/14/19 10:40 Protonix Iv IVPUSH 40 mg BID JANNETH Administration Polyethylene Glycol 17 gm 06/12/19 22:00 06/14/19 10:49 Miralax (For Daily Use) - PO Not Given BID [facility]ANNET[facility] Prednisone 40 mg 06/13/19 14:15 06/14/19 10:39 Deltasone - PO 40 mg DAILY [facility] Administration Zolpidem Tartrate 5 mg 06/11/19 22:00 06/13/19 22:44 Ambien - PO 5 mg HS PRN Administration INSOMNIA ASSESSMENT/PLAN: This is an 84 year old woman with a history of HTN, hyperlipidemia, GERD, possible trigeminal neuralgia, fibromyalgia, depression who presented to the ED with cough and SOB. 1. Pneumonia/acute bronchitis secondary to recent URI - Ceftriaxone, Zithromax changed to Augmentin - Rapid influenza A/B negative - Respiratory virus panel pending - Continue Prednisone, Symbicort, DuoNeb - Evaluation for home oxygen showed room air O2 sat 95% at rest, 97% while walking 2. HTN - Continue lisinopril, Norvasc, HCTZ 3. Hyperlipidemia - Continue Lipitor 4. Fibromyalgia, possible trigeminal neuralgia - Continue Neurontin, Cymbalta 5. Depression - Continue Cymbalta 6. GERD - Continue Protonix Visit type - Emergency Visit Emergency Visit: Yes ED Registration Date: 06/10/19 Care time: The patient presented to the Emergency Department on the above date and was hospitalized for further evaluation of their emergent condition. - New Patient This patient is new to me today: Yes Date on this admission: 06/14/19 - Critical Care Critical Care patient: No - Discharge Referral Referred to [facility] Med P.C.: No
[2019-06-14] MEDS: guaiFENesin/CODEINE 5 ML UNIT-DOSE CUPS PO PRN ×2 (12:47→21:24)
[2019-06-14] MEDS: PANTOPRAZOLE 40 MG TABLET PO SCH (12:47)
[2019-06-14] MEDS ORDERED: SODIUM CHLORIDE 1,000 ML IV SCH (17:00)
[2019-06-14] MEDS: ZOLPIDEM TARTRATE 5 MG TABLET PO PRN (21:24)
[2019-06-14] MEDS: ATORVASTATIN CA 20 MG TABLET (FP) PO SCH (21:24)
[2019-06-15] MEDS: ALBUTEROL SO4 2.5/IPRATROPIUM 0.5 INH SOL 3 ML VIAL.NEB. NEB SCH ×6 (00:10→20:10)
[2019-06-15] MEDS: oxyCODONE HCL 5 MG TABLET PO PRN ×2 (07:27→12:49)
[2019-06-15 08:31] LABS: BLOOD UREA NITROGEN 11.9 mg/dL (7-18); CALCIUM 8.6 mg/dL (8.5-10.1); CREATININE 0.7 mg/dL (0.55-1.3); POTASSIUM 4.4 mmol/L (3.5-5.1)
[2019-06-15] MEDS: AMOX TR/POT CLAV 875MG/125MG TABLETS (FP) PO SCH ×2 (08:36→17:24)
--- NOTE | 2019-06-15 09:36 | PN ---
Physical Exam: SUBJECTIVE: Patient seen and examined. She says she is coughing up phlegm. She denies SOB. OBJECTIVE: Vital Signs Period Temp Pulse Resp BP Sys/Fitzpatrick Pulse Ox Last 24 Hr 97.3 F-98.8 F 89-118 18-20 123-148/58-69 96-97 GENERAL: The patient is awake, alert, and fully oriented, in no acute distress. LUNGS: Breath sounds equal, bilateral rhonchi, no wheezes, no crackles, no accessory muscle use. HEART: Regular rate and rhythm, S1, S2 without murmur, rub or gallop. ABDOMEN: Soft, nontender, nondistended, normoactive bowel sounds, no guarding, no rebound, no hepatosplenomegaly, no masses. EXTREMITIES: 2+ pulses, warm, well-perfused, no edema. Laboratory Results - last 24 hr 06/11/19 06/14/19 06/15/19 16:05 07:45 07:30 Sodium 129 L 132 L Potassium 4.1 4.4 Chloride 93 L 97 L Carbon Dioxide 29 27 Anion Gap 7 L 7 L BUN 12.9 11.9 Creatinine 0.7 0.7 Est GFR (CKD-EPI)AfAm 93.52 93.52 Est GFR (CKD-EPI)NonAf 80.69 80.69 Random Glucose 96 87 Calcium 8.9 8.6 Lyme IgM 23 kDa Band No Result Required. Lyme IgM 39 kDa Band No Result Required. Lyme IgM 41 kDa Band No Result Required. Active Medications Generic Name Dose Route Start Last Admin Trade Name Freq PRN Reason Stop Dose Admin Acetaminophen 325 mg 06/12/19 17:29 06/14/19 16:20 Tylenol - PO 325 mg Q6H PRN Administration PAIN LEVEL 7-10 Albuterol/Ipratropium 1 amp 06/11/19 00:00 06/15/19 07:30 Duoneb - NEB 1 amp RQ4H JANNETH Administration Amlodipine Besylate 5 mg 06/11/19 15:15 06/14/19 10:39 Norvasc - PO 5 mg DAILY JANNETH Administration Amoxicillin/Clavulanate Potassium 1 tab 06/13/19 17:30 06/15/19 08:36 Augmentin - 875mg Tablet PO 1 tab BID@0800,1730 JANNETH Administration Aspirin 81 mg 06/12/19 10:00 06/14/19 10:39 Asa - PO 81 mg DAILY JANNETH Administration Atorvastatin Calcium 20 mg 06/11/19 22:00 06/14/19 21:24 Lipitor - PO 20 mg HS JANNETH Administration Budesonide/Formoterol Fumarate 2 puff 06/10/19 23:30 06/14/19 21:25 Symbicort 80/4.5mcg - IH 2 puff BID JANNEHT Administration Duloxetine HCl 20 mg 06/11/19 10:00 06/14/19 21:24 Cymbalta - PO 20 mg BID JANNETH Administration Enoxaparin Sodium 40 mg 06/11/19 10:00 06/14/19 10:40 Lovenox - SQ 40 mg DAILY JANNETH Administration Gabapentin 300 mg 06/11/19 10:00 06/14/19 21:24 Neurontin - PO 300 mg BID JANNETH Administration Guaifenesin/Codeine Phosphate 5 ml 06/11/19 13:51 06/14/19 21:24 Robitussin Ac - PO 5 ml TID PRN Administration COUGH Lisinopril 5 mg 06/11/19 15:15 06/14/19 10:39 Prinivil PO 5 mg DAILY JANNETH Administration Oxycodone HCl 10 mg 06/12/19 17:29 06/15/19 07:27 Roxicodone - PO 10 mg Q6H PRN Administration PAIN LEVEL 7-10 Pantoprazole Sodium 40 mg 06/14/19 11:15 06/14/19 12:47 Protonix - PO 40 mg DAILY JANNETH Administration Polyethylene Glycol 17 gm 06/12/19 22:00 06/14/19 21:50 Miralax (For Daily Use) - PO Not Given BID [facility] Prednisone 40 mg 06/13/19 14:15 06/14/19 10:39 Deltasone - PO 40 mg DAILY JANNETH Administration Zolpidem Tartrate 5 mg 06/11/19 22:00 06/14/19 21:24 Ambien - PO 5 mg HS PRN Administration INSOMNIA ASSESSMENT/PLAN: This is an 84 year old woman with a history of HTN, hyperlipidemia, GERD, possible trigeminal neuralgia, fibromyalgia, depression who presented to the ED with cough and SOB. 1. Pneumonia/acute bronchitis secondary to recent URI - Continue Augmentin - Rapid influenza A/B negative - Sputum culture negative - Respiratory virus panel, Bordatella pertussis pending - Continue Prednisone, Symbicort, DuoNeb - Evaluation for home oxygen showed room air O2 sat 95% at rest, 97% while w alking 2. Hyponatremia - Improving - Na 132 today - Discontinue IV fluid and continue to hold HCTZ - Monitor electrolytes 3. HTN - Continue lisinopril, Norvasc - HCTZ held secondary to hyponatremia 4. Hyperlipidemia - Continue Lipitor 5. Fibromyalgia, possible trigeminal neuralgia - Continue Neurontin, Cymbalta 6. Depression - Continue Cymbalta 7. GERD - Continue Protonix 8. Disposition - Discharge in am if sodium ok Visit type - Emergency Visit Emergency Visit: Yes ED Registration Date: 06/10/19 Care time: The patient presented to the Emergency Department on the above date and was hospitalized for further evaluation of their emergent condition. - New Patient This patient is new to me today: No - Critical Care Critical Care patient: No - Discharge Referral Referred to [facility] Med P.C.: No
[2019-06-15] MEDS ORDERED: PT OWN MED DRAWER 7, Y5N ONE ×3 (10:36→21:04)
[2019-06-15] MEDS: guaiFENesin/CODEINE 5 ML UNIT-DOSE CUPS PO PRN (10:52)
[2019-06-15] MEDS: ASPIRIN 81 MG CHEWABLE TABLETS PO SCH (10:52)
[2019-06-15] MEDS: LISINOPRIL 5 MG TABLET (FP) PO SCH (10:52)
[2019-06-15] MEDS: predniSONE 20 MG TABLET (UD) PO SCH (10:52)
[2019-06-15] MEDS: ENOXAPARIN NA (PORCINE) 40 MG/0.4 ML DISP.SYRIN SQ SCH (10:52)
[2019-06-15] MEDS: GABAPENTIN 300 MG CAPSULE PO SCH ×2 (10:52→21:10)
[2019-06-15] MEDS: amLODIPine BESYLATE 5 MG TABLET (FP) PO SCH (10:52)
[2019-06-15] MEDS: PANTOPRAZOLE 40 MG TABLET PO SCH (10:53)
[2019-06-15] MEDS: POLYETHYLENE GLYCOL 3350 119 GM BTL PO SCH ×2 (10:53→21:12)
[2019-06-15] MEDS: DULoxetine HCL 20 MG CAPSULE.DR PO SCH ×2 (10:53→21:10)
[2019-06-15] MEDS: BUDESONIDE/FORMETEROL FUMARATE 80/4.5 mcg INHALER IH SCH ×2 (10:54→21:13)
--- NOTE | 2019-06-15 12:35 | PN ---
Progress Note (short form) - Note Progress Note: PULMONARY Feels better today. Less cough and SOB. No acute events overnight. GENERAL: no acute distress. HEAD: Normal EYES: anicteric NECK: Trachea midline LUNGS: Clear HEART: Regular rate and rhythm, S1, S2 ABDOMEN: Soft, nontender EXTREMITIES: 2+ pulses NEUROLOGICAL: Non-focal LABS/MEDS/NOTES/IMAGES/MICRO REVIEWED Problem List (1) Cough Code(s): R05 - COUGH (2) Bronchitis Code(s): J40 - BRONCHITIS, NOT SPECIFIED ACUTE OR CHRONIC (3) Pneumonia Code(s): J18.9 - PNEUMONIA, UNSPECIFIED ORGANISM Qualifiers: Pneumonia type: due to unspecified organism Laterality: left Lung location: lower lobe of lung Qualified Code(s): J18.9 - Pneumonia, unspecified organism IMP DYSPNEA/CONGESTION,HYPOXEMIA RESOLVING LLL PNA SUBCENTIMETER NODULES: LARGEST MEASURES 4 MM HTN HLD PLAN ABX ORAL SUPPLEMENTAL O2 NEEDED STEROIDS ORAL TO TAPER INHALED BRONCHODILATORS CHEST CT FOLLOW UP AN OUTPATIENT DISCHARGE PLANNING Yamile URIBE MD
[2019-06-15] MEDS ORDERED: ACETAMINOPHEN 325 MG TABLET (FP) PO PRN (16:53)
[2019-06-15] MEDS ORDERED: KETOROLAC TROMETHAMINE 30 MG/1 ML VIAL IVPUSH ONE (16:56)
[2019-06-15] MEDS: ATORVASTATIN CA 20 MG TABLET (FP) PO SCH (21:10)
[2019-06-15] MEDS: ZOLPIDEM TARTRATE 5 MG TABLET PO PRN (21:11)
[2019-06-16] MEDS ORDERED: KETOROLAC TROMETHAMINE 30 MG/1 ML VIAL IVPUSH ONE (00:07)
[2019-06-16] MEDS: guaiFENesin/CODEINE 5 ML UNIT-DOSE CUPS PO PRN ×2 (00:16→10:02)
[2019-06-16] MEDS: ALBUTEROL SO4 2.5/IPRATROPIUM 0.5 INH SOL 3 ML VIAL.NEB. NEB SCH ×5 (00:24→16:16)
--- NOTE | 2019-06-16 08:13 | PN ---
Physical Exam: SUBJECTIVE: Patient seen and examined. Pt reports intermittent cough and pleuritic chest pain. Had paresthesias of feet and b/l hip pain on presentation. Sodium stillm OBJECTIVE: Vital Signs Period Temp Pulse Resp BP Sys/Fitzpatrick Pulse Ox Last 24 Hr 98.0 F-98.6 F 87-99 18-24 145-152/70-78 99-99 GENERAL: The patient is awake, alert, and fully oriented, in no acute distress. HEAD: Normal with no signs of trauma. EYES: PERRL, extraocular movements intact, sclera anicteric, conjunctiva clear. No ptosis. ENT: Ears normal, nares patent, oropharynx clear without exudates, moist mucous membranes. NECK: Trachea midline, full range of motion, supple. LUNGS: Breath sounds equal, clear to auscultation bilaterally, no wheezes, no crackles, no accessory muscle use. HEART: Regular rate and rhythm, S1, S2 without murmur, rub or gallop. ABDOMEN: Soft, nontender, nondistended, normoactive bowel sounds, no guarding, no rebound, no hepatosplenomegaly, no masses. EXTREMITIES: 2+ pulses, warm, well-perfused, no edema. NEUROLOGICAL: Cranial nerves II through XII grossly intact. Normal speech, gait not observed. PSYCH: Normal mood, normal affect. SKIN: Warm, dry, normal turgor, no rashes or lesions noted Laboratory Results - last 24 hr 06/15/19 07:30 Sodium 132 L Potassium 4.4 Chloride 97 L Carbon Dioxide 27 Anion Gap 7 L BUN 11.9 Creatinine 0.7 Est GFR (CKD-EPI)AfAm 93.52 Est GFR (CKD-EPI)NonAf 80.69 Random Glucose 87 Calcium 8.6 Active Medications Generic Name Dose Route Start Last Admin Trade Name Freq PRN Reason Stop Dose Admin Acetaminophen 650 mg 06/15/19 16:53 Tylenol - PO Q4H PRN PAIN LEVEL 1-5 Albuterol/Ipratropium 1 amp 06/11/19 00:00 06/16/19 04:30 Duoneb - NEB Not Given RQ4H JANNETH Amlodipine Besylate 5 mg 06/11/19 15:15 06/15/19 10:52 Norvasc - PO 5 mg DAILY JANNETH Administration Amoxicillin/Clavulanate Potassium 1 tab 06/13/19 17:30 06/15/19 17:24 Augmentin - 875mg Tablet PO 1 tab BID@0800,1730 JANNETH Administration Aspirin 81 mg 06/12/19 10:00 06/15/19 10:52 Asa - PO 81 mg DAILY JANNETH Administration Atorvastatin Calcium 20 mg 06/11/19 22:00 06/15/19 21:10 Lipitor - PO 20 mg HS JANNETH Administration Budesonide/Formoterol Fumarate 2 puff 06/10/19 23:30 06/15/19 21:13 Symbicort 80/4.5mcg - IH 2 puff BID JANNETH Administration Duloxetine HCl 20 mg 06/11/19 10:00 06/15/19 21:10 Cymbalta - PO 20 mg BID JANNETH Administration Enoxaparin Sodium 40 mg 06/11/19 10:00 06/15/19 10:52 Lovenox - SQ 40 mg DAILY JANNETH Administration Gabapentin 300 mg 06/11/19 10:00 06/15/19 21:10 Neurontin - PO 300 mg BID JANNETH Administration Guaifenesin/Codeine Phosphate 5 ml 06/11/19 13:51 06/16/19 00:16 Robitussin Ac - PO 5 ml TID PRN Administration COUGH Lisinopril 5 mg 06/11/19 15:15 06/15/19 10:52 Prinivil PO 5 mg DAILY JANNETH Administration Oxycodone HCl 10 mg 06/15/19 16:54 Roxicodone - PO Q6H PRN PAIN LEVEL 6-10 Pantoprazole Sodium 40 mg 06/14/19 11:15 06/15/19 10:53 Protonix - PO 40 mg DAILY JANNETH Administration Polyethylene Glycol 17 gm 06/12/19 22:00 06/15/19 21:12 Miralax (For Daily Use) - PO 17 gm BID JANNETH Administration Prednisone 40 mg 06/13/19 14:15 06/15/19 10:52 Deltasone - PO 40 mg DAILY JANNETH Administration Zolpidem Tartrate 5 mg 06/11/19 22:00 06/15/19 21:11 Ambien - PO 5 mg HS PRN Administration INSOMNIA CT head: No acute changes- large eyeballs possibly in setting of myopia vs glaucoma, s/p b/l cataract sx CTAP: Stable b/l adrenal adenomas, b/l adenoma with mild b/l ureteronephrosis, stable L1 compression fracture CT chest: Small L lobe opacity Xray pelvis_ b/l hip replacement with protrusion on R ASSESSMENT/PLAN: ATTENDING PHYSICIAN STATEMENT I saw and evaluated the patient. I reviewed the resident's note and discussed the case with the resident. I agree with the resident's findings and plan as documented. SUBJECTIVE: OBJECTIVE: ASSESSMENT AND PLAN:
[2019-06-16 08:19] LABS: BLOOD UREA NITROGEN 15.9 mg/dL (7-18); CALCIUM 8.8 mg/dL (8.5-10.1); CREATININE 0.7 mg/dL (0.55-1.3); POTASSIUM 3.9 mmol/L (3.5-5.1)
[2019-06-16] MEDS: AMOX TR/POT CLAV 875MG/125MG TABLETS (FP) PO SCH (08:44)
[2019-06-16] MEDS: oxyCODONE HCL 5 MG TABLET PO PRN ×2 (09:12)
[2019-06-16] MEDS: predniSONE 20 MG TABLET (UD) PO SCH (09:15)
[2019-06-16] MEDS: GABAPENTIN 300 MG CAPSULE PO SCH (09:16)
[2019-06-16] MEDS: amLODIPine BESYLATE 5 MG TABLET (FP) PO SCH (09:16)
[2019-06-16] MEDS: PANTOPRAZOLE 40 MG TABLET PO SCH (09:16)
[2019-06-16] MEDS: ASPIRIN 81 MG CHEWABLE TABLETS PO SCH (09:16)
[2019-06-16] MEDS: LISINOPRIL 5 MG TABLET (FP) PO SCH (09:16)
[2019-06-16] MEDS: DULoxetine HCL 20 MG CAPSULE.DR PO SCH (10:02)
[2019-06-16] MEDS: ENOXAPARIN NA (PORCINE) 40 MG/0.4 ML DISP.SYRIN SQ SCH (10:02)
[2019-06-16] MEDS: BUDESONIDE/FORMETEROL FUMARATE 80/4.5 mcg INHALER IH SCH (10:06)
--- NOTE | 2019-06-16 11:34 | PN ---
Progress Note (short form) - Note Progress Note: PULMONARY States breathing better. No fevers. Vital Signs Period Temp Pulse Resp BP Sys/Fitzpatrick Pulse Ox Last 24 Hr 98.0 F-98.6 F 87-99 18-20 145-152/72-78 99 Gen: NAD at rest Heart: RRR Lung: decreased breath sounds at the bases Abd: soft, nontender Ext: no edema CBC, BMP 06/14/19 07:45 06/16/19 06:00 Active Medications Acetaminophen (Tylenol -) 650 mg PO Q4H PRN PRN Reason: PAIN LEVEL 1-5 Last Admin: 06/16/19 09:14 Dose: 650 mg Documented by: Albuterol/Ipratropium (Duoneb -) 1 amp NEB RQ4H [facility] Last Admin: 06/16/19 07:30 Dose: 1 amp Documented by: Amlodipine Besylate (Norvasc -) 5 mg PO DAILY [facility] Last Admin: 06/16/19 09:16 Dose: 5 mg Documented by: Amoxicillin/Clavulanate Potassium (Augmentin - 875mg Tablet) 1 tab PO B ID@0800,1730 [facility] Last Admin: 06/16/19 08:44 Dose: 1 tab Documented by: Aspirin (Asa -) 81 mg PO DAILY [facility] Last Admin: 06/16/19 09:16 Dose: 81 mg Documented by: Atorvastatin Calcium (Lipitor -) 20 mg PO HS [facility] Last Admin: 06/15/19 21:10 Dose: 20 mg Documented by: Budesonide/Formoterol Fumarate (Symbicort 80/4.5mcg -) 2 puff IH BID [facility] Last Admin: 06/16/19 10:06 Dose: 2 puff Documented by: Duloxetine HCl (Cymbalta -) 20 mg PO BID [facility] Last Admin: 06/16/19 10:02 Dose: 20 mg Documented by: Enoxaparin Sodium (Lovenox -) 40 mg SQ DAILY [facility] Last Admin: 06/16/19 10:02 Dose: 40 mg Documented by: Gabapentin (Neurontin -) 300 mg PO BID [facility] Last Admin: 06/16/19 09:16 Dose: 300 mg Documented by: Guaifenesin/Codeine Phosphate (Robitussin Ac -) 5 ml PO TID PRN PRN Reason: COUGH Last Admin: 06/16/19 10:02 Dose: 5 ml Documented by: Lisinopril (Prinivil) 5 mg PO DAILY [facility] Last Admin: 06/16/19 09:16 Dose: 5 mg Documented by: Oxycodone HCl (Roxicodone -) 10 mg PO Q6H PRN PRN Reason: PAIN LEVEL 6-10 Last Admin: 06/16/19 09:12 Dose: 10 mg Documented by: Pantoprazole Sodium (Protonix -) 40 mg PO DAILY [facility] Last Admin: 06/16/19 09:16 Dose: 40 mg Documented by: Polyethylene Glycol (Miralax (For Daily Use) -) 17 gm PO BID [facility] Last Admin: 06/15/19 21:12 Dose: 17 gm Documented by: Prednisone (Deltasone -) 40 mg PO DAILY [facility] Last Admin: 06/16/19 09:15 Dose: 40 mg Documented by: Zolpidem Tartrate (Ambien -) 5 mg PO HS PRN PRN Reason: INSOMNIA Last Admin: 06/15/19 21:11 Dose: 5 mg Documented by: A/P Pneumonia Lung Nodules HTN Hyperlipidemia - complete antibiotics - f/u cultures, serologies - inhaled bronchodilators - outpt f/u of chest imaging - DVT prophylaxis
[2019-06-16] MEDS ORDERED: SODIUM CHLORIDE 1,000 ML IV SCH (11:45)
[2019-06-16] MEDS: POLYETHYLENE GLYCOL 3350 119 GM BTL PO SCH (14:03)
[2019-06-16 14:35] VITALS: BP 153/67; PULSE 86; TEMP 98
--- NOTE | 2019-06-16 14:41 | PN ---
Teaching Attending Note Name of Resident: Leesa Jiménez ATTENDING PHYSICIAN STATEMENT I saw and evaluated the patient. I reviewed the resident's note and discussed the case with the resident. I agree with the resident's findings and plan as documented. SUBJECTIVE: patient states her sob has improved OBJECTIVE: GENERAL: alert and oriented in no acute distress CVS: S1 S2 RRR no murmurs Lungs: +ronchi +good air entry b/l ABDOMEN: Soft, nontender, +BS EXTREMITIES: no cyanosis or edema ASSESSMENT AND PLAN: 84 year old woman with a history of HTN, hyperlipidemia, GERD, possible trigeminal neuralgia, fibromyalgia, depression who presented to the ED with cough and SOB admitted for Pneumonia/acute bonrchitis 2/2 recent URI # Pneumonia/acute bronchitis - seen by Pulmonary - c/w augment finish course - subcentimiter nodule noted - pulmonary and CT chest f/u outpatient - nebs prn # Hyponatremia - stable Renal f/u outpatient HCT held can be restarted outpatient by PCP # c/w rest of chronic home meds # d/c today
--- NOTE | 2019-06-16 23:02 | DS ---
Physical Exam: SUBJECTIVE: Patient seen and examined. Cough, pleuritic chest pain and paresthesias improving. No headache, seizures, sodium unchanged. OBJECTIVE: Vital Signs Period Temp Pulse Resp BP Sys/Fitzpatrick Pulse Ox Last 24 Hr 98 F-98.2 F 86-92 18-18 145-153/67-78 95-97 Vital Signs Temp 98 F 06/16/19 14:34 Pulse 86 06/16/19 14:34 Resp 18 06/16/19 14:34 BP 153/67 06/16/19 14:34 Pulse Ox 95 06/16/19 10:00 Intake & Output 06/15/19 06/16/19 06/16/19 23:59 11:59 23:59 Intake Total 750 700 Balance 750 700 Intake: IV 200 Normal Saline - 1,000 ml 200 @ 100 mls/hr IV ASDIR JANNETH Rx#:[id number] Oral 750 500 Other: Voiding Method Toilet Toilet # Unmeasured Voids Void 1 1 4 Bowel Movement No No Yes: small bm today PHYSICAL EXAM GENERAL: The patient is awake, alert, and fully oriented, in no acute distress. EYES: PERRL, extraocular movements intact ENT: moist mucous membranes. LUNGS: Breath sounds equal, clear to auscultation bilaterally, no wheezes, no crackles HEART: Regular rate and rhythm, S1, S2 without murmur ABDOMEN: Soft, nontender, nondistended, normoactive bowel sounds, no guarding EXTREMITIES: 2+ pulses, warm, well-perfused, no edema. NEUROLOGICAL: Cranial nerves II through XII grossly intact. Normal speech, gait not observed. PSYCH: Normal mood, normal affect. SKIN: Warm, dry, normal turgor, no rashes or lesions noted. LABS CBCD WBC 9.1 K/mm3 (4.0-10.0) 06/14/19 07:45 RBC 3.49 M/mm3 (3.60-5.2) L 06/14/19 07:45 Hgb 11.1 GM/dL (10.7-15.3) 06/14/19 07:45 Hct 32.1 % (32.4-45.2) L 06/14/19 07:45 MCV 92.2 fl (80-96) 06/14/19 07:45 MCHC 34.6 g/dl (32.0-36.0) 06/14/19 07:45 RDW 13.4 % (11.6-15.6) 06/14/19 07:45 Plt Count 385 K/MM3 (134-434) 06/14/19 07:45 MPV 6.7 fl (7.5-11.1) L 06/14/19 07:45 CMP Sodium 129 mmol/L (136-145) L 06/16/19 06:00 Potassium 3.9 mmol/L (3.5-5.1) 06/16/19 06:00 Chloride 94 mmol/L (98-107) L 06/16/19 06:00 Carbon Dioxide 28 mmol/L (21-32) 06/16/19 06:00 Anion Gap 7 MMOL/L (8-16) L 06/16/19 06:00 BUN 15.9 mg/dL (7-18) 06/16/19 06:00 Creatinine 0.7 mg/dL (0.55-1.3) 06/16/19 06:00 Calcium 8.8 mg/dL (8.5-10.1) 06/16/19 06:00 Total Bilirubin 0.4 mg/dL (0.2-1) 06/13/19 07:35 AST 22 U/L (15-37) 06/13/19 07:35 ALT 20 U/L (13-61) 06/13/19 07:35 Alkaline Phosphatase 69 U/L (45-117) 06/13/19 07:35 Total Protein 7.5 g/dl (6.4-8.2) 06/13/19 07:35 Albumin 3.4 g/dl (3.4-5.0) 06/13/19 07:35 Laboratory Results - last 24 hr 06/16/19 06/16/19 06/16/19 06:00 07:30 12:13 Sodium 129 L Potassium 3.9 Chloride 94 L Carbon Dioxide 28 Anion Gap 7 L BUN 15.9 Creatinine 0.7 Est GFR (CKD-EPI)AfAm 93.52 Est GFR (CKD-EPI)NonAf 80.69 Random Glucose 91 Serum Osmolality 272 L Calcium 8.8 Urine Osmolality 261 L Microbiology 06/11/19 16:00 Nasopharyngeal Swab Bordetella pertussis DNA (PCR) - Preliminary 06/11/19 16:00 Nasopharyngeal Swab Bordetella paraper/pertuss DNA (PCR - Preliminary 06/10/19 18:46 Blood - Peripheral Venous Blood Culture - Final NO GROWTH AFTER 5 DAYS INCUBATION 06/10/19 18:46 Blood - Peripheral Venous Blood Culture - Final NO GROWTH AFTER 5 DAYS INCUBATION 06/11/19 10:10 Sputum - Expectorated Gram Stain - Final 06/11/19 10:10 Sputum - Expectorated Sputum Culture - Final NORMAL RESPIRATORY [place]ED[place] 06/11/19 22:45 Urine For Antigen Detection Legionella Antigen - Final 06/11/19 22:45 Urine For Antigen Detection Streptococcus pneumoniae Antigen (M - Final 06/11/19 01:45 Urine - Urine Clean Catch Urine Culture - Final Staphylococcus Coagulase Neg CT head: No acute changes- large eyeballs possibly in setting of myopia vs glaucoma, s/p b/l cataract sx CTAP: Stable b/l adrenal adenomas, b/l adenoma with mild b/l ureteronephrosis, stable L1 compression fracture CT chest: Small L lobe opacity Xray pelvis_ b/l hip replacement with protrusion on R HOSPITAL COURSE: Date of Admission:06/10/19 Date of Discharge: 06/16/19 Pt is an 84F PMH HTN, HLD, GERD, depression who presents with 3 weeks of cough and 2 day history of shortness of breath. She has complaints of pleuritic chest pain and abdominal pain. Her cough was initially non productive and has recently produced green sputum. She has seen her PCP who prescribed her antibiotics, taken anti-tussive medication with no relief. She has had 2 episodes of NBNB emesis, 1 last night and one episode in the AM today. She also describes generalized numbness, paresthesias, and weakness throughout her body. She has had subjective fevers at home but no recorded temperatures. She has had episodes of coughing similar to this in years prior which are alleviated with cough medicine and last approximately 1 week. She has no dysuria, hematuria, hemtochezia, diarrhea, nausea, or vomiting. She has one sick contact at home: her daughter in law who had URI symptoms last week that have resolved. Pt was managed for Pneumonia/acute bronchitis secondary to recent URI with augmentin. She was noted to have fluctuating levels of sodium, persisting as 129, without symptoms on discharge, to follow up with her PCP and outpt nephrology in 2 days. Her protonix and HCTZ were discontinued and pt was maintained on her other medications for chronic illness. Minutes to complete discharge: 35 Discharge Summary Problems reviewed: Yes Reason For Visit: PNEUMONIA Condition: Stable - Instructions Diet, Activity, Other Instructions: You came in for cough and were treated for pneumonia and infection in your urine. You were noted to have nodules in our chest. You had low levels of salts while here and will need to follow up with a kidney doctor You had pain in your hips at the site of your prior hip replacements that did not show any fractures or dislocation You were on a low salt doiet while here, continue with a regular diet at home Follow up with your primary care doctor in 2 days to have blood work to check your sodium level Follow up with you spud sorter for the lung nodule in one week Medications Stopped: We are discontinuing the omeprazole you have been on as it could weaken your bones Follow up with your doctor about starting another acid blocking medication We have also discontinued one of your blood pressure medications- hydrochlorothiazide because of the low sodium If you feel your symptoms are not getting better, with worsening cough, productive of blood, chest pain, worsening difficulty breathing, please return to the nearest emergency room Referrals: Abner Sarabia MD [Primary Care Provider] - 06/18/19 (To check serum sodium-last sodium 129 on discharge, asymptomatic Pt with lung nodules) Deepika Millan MD [Staff Physician] - 1 Week (Hyponatremia 129 on discharge for PNA) Steve Medel MD, MD [Staff Physician] - 2 Weeks (New lung nodule) Disposition: HOME - Home Medications Comprehensive Discharge Medication List: Ambulatory Orders Amlodipine Besylate [Norvasc -] 5 mg PO DAILY 12/04/18 Atorvastatin Ca [Lipitor] 20 mg PO HS 12/04/18 Duloxetine HCl [Cymbalta] 20 mg PO BID 12/04/18 Gabapentin [Neurontin] 300 mg PO BID 12/04/18 Lisinopril [Prinivil] 5 mg PO DAILY 06/10/19 Zolpidem Tartrate [Ambien] 10 mg PO HS 06/10/19 Hydrocodone/Acetaminophen [Hydrocodone-Acetamin 10-325 mg] 1 each PO Q6H PRN 06/11/19 Aspirin [ASA -] 81 mg PO DAILY tab.chew 03/09/20 Budesonide/Formeterol Fumarate [SYMBICORT 80/4.5mcg -] 2 puff IH BID #1 inhaler 06/16/19 This patient is new to me today: Yes Date on this admission: 06/16/19 Emergency Visit: Yes ED Registration Date: 06/10/19 Care time: The patient presented to the Emergency Department on the above date and was hospitalized for further evaluation of their emergent condition. Critical Care patient: No - Discharge Referral Referred to [facility] Med [facility] No ATTENDING PHYSICIAN STATEMENT I saw and evaluated the patient. I reviewed the resident's note and discussed the case with the resident. I agree with the resident's findings and plan as documented. SUBJECTIVE: OBJECTIVE: ASSESSMENT AND PLAN:
[2019-06-16 23:06] LABS: BORDETELLA PERTUSSIS IG-M 3.8 index (0.0-0.9); PERTUSSIS TOXIN IGG <0.95 index (0.00-0.94)
== END 2019-06-16 16:38 | disposition home or self-care (01) | DRG 194 ==
LOC: JER 12:58 → JERBED 15:53 → J5S 23:10
PROVIDERS: ADMIT Internal Medicine; ATTEND Internal Medicine
DX: J18.9 Pneumonia, unspecified organism (principal); E87.1 Hypo-osmolality and hyponatremia; N13.30 Unspecified hydronephrosis; M48.56XA Collapsed vertebra, not elsewhere classified, lumbar region, initial encounter for fracture; N39.0 Urinary tract infection, site not specified; I10 Essential (primary) hypertension; E78.5 Hyperlipidemia, unspecified; K21.9 Gastro-esophageal reflux disease without esophagitis; K59.09 Other constipation; F32.9 Major depressive disorder, single episode, unspecified; Z96.643 Presence of artificial hip joint, bilateral; R09.02 Hypoxemia; J20.9 Acute bronchitis, unspecified; M79.7 Fibromyalgia; R91.8 Other nonspecific abnormal finding of lung field; G50.0 Trigeminal neuralgia; D35.02 Benign neoplasm of left adrenal gland; D35.01 Benign neoplasm of right adrenal gland
CPT/HCPCS: 36415; 70450-TC; 71045-TC-FY; 71250-TC; 73502-TC-LT-FY; 73502-TC-RT-FY; 74177-TC; 80048; 80053; 81003; 82550; 82962; 83605; 83690; 83735; 83930; 83935; 84484; 85025; 85610; 85730; 86615; 86618; 87040; 87070; 87077; 87086; 87205; 87633; 87798; 87804; 87899; 93005; 93010; 94640; 94761; 99285-25; J0131; J7030; Q9967

== ENCOUNTER 2020-04-15 12:00 | Emergency (ER) | payer OTHER ==
[2020-04-15 12:20] VITALS: BP 141/66; PULSE 98; TEMP 98.3; BMI 31.4
[2020-04-15] MEDS ORDERED: LIDOCAINE HCL 2% (50ML VIAL) INF ONE (13:08)
[2020-04-15] MEDS ORDERED: LIDOCAINE HCL 2% (20ML MULTI-DOSE VIAL) ONE ×2 (13:10→15:12)
[2020-04-15] MEDS ORDERED: LIDOCAINE HCL 2% (50ML VIAL) SQ ONE (15:12)
== END 2020-04-15 16:30 | disposition home or self-care (01) ==
LOC: JERFT 12:00
PROC: 2W3CX1Z Immobilization of Right Lower Arm using Splint (ICD-10-PCS; principal; 2020-04-15)
DX: S52.531A Colles' fracture of right radius, initial encounter for closed fracture (principal); S52.601A Unspecified fracture of lower end of right ulna, initial encounter for closed fracture
CPT/HCPCS: 73110-TC-RT-FY; 73130-TC-RT-FY; 99284-25

== ENCOUNTER 2020-04-29 06:27 | Day surgery (SDC) | payer OTHER ==
[2020-04-27 12:02] VITALS: BMI 30.7
[2020-04-29] MEDS ORDERED: ROPIVACAINE HCL 0.5% 30ML VIAL ONE (06:54)
[2020-04-29] MEDS ORDERED: MIDAZOLAM HCL 2 MG/2 ML SINGLE DOSE VIAL ONE (06:54)
[2020-04-29] MEDS ORDERED: LIDOCAINE HCL/PF 2% SDV 5ML VIAL ONE (07:44)
[2020-04-29] MEDS ORDERED: ONDANSETRON 4 MG/2 ML VIAL ONE ×2 (07:44→09:38)
[2020-04-29] MEDS ORDERED: DEXAMETHASONE SOD PHOSPHATE 4 MG/1 ML VIAL ONE (07:44)
[2020-04-29] MEDS ORDERED: SUCCINYLCHOLINE CHLORIDE 200 MG/10 ML SYRINGE ONE (07:44)
[2020-04-29] MEDS ORDERED: PROPOFOL 20 ML ONE ×3 (07:44→09:17)
[2020-04-29] MEDS ORDERED: ceFAZolin SODIUM 1 GM VIAL ONE (07:44)
[2020-04-29] MEDS ORDERED: ceFAZolin 2 GRAM PREMIX BAG IVPB ONE (08:14)
[2020-04-29] MEDS ORDERED: PROMETHAZINE HCL 25 MG/1 ML VIAL IVPUSH PRN (09:43)
[2020-04-29] MEDS ORDERED: ONDANSETRON 4 MG/2 ML VIAL IVPUSH PRN (09:43)
[2020-04-29] MEDS ORDERED: oxyCODONE HCL 5 MG TABLET PO PRN (09:43)
[2020-04-29] MEDS ORDERED: KETOROLAC TROMETHAMINE 30 MG/1 ML VIAL ONE (11:00)
[2020-04-29 12:12] VITALS: TEMP 98.2
[2020-04-29 12:32] VITALS: BP 161/79; PULSE 104
== END 2020-04-29 12:15 | disposition home or self-care (01) ==
LOC: FASU 06:27
PROVIDERS: ATTEND Orthopaedic Surgery
PROC: 0PSH04Z Reposition Right Radius with Internal Fixation Device, Open Approach (ICD-10-PCS; principal; 2020-04-29 08:00)
DX: S52.571A Other intraarticular fracture of lower end of right radius, initial encounter for closed fracture (principal); X58.XXXA Exposure to other specified factors, initial encounter; Y93.9 Activity, unspecified; Y92.9 Unspecified place or not applicable; M81.0 Age-related osteoporosis without current pathological fracture
CPT/HCPCS: 73110-TC-RT-FY; 94760

== ENCOUNTER 2020-10-27 15:24 | Emergency (ER) | payer OTHER ==
[2020-10-27 15:48] VITALS: BMI 28.8
[2020-10-27] MEDS ORDERED: ACETAMINOPHEN 325 MG TABLET (FP) PO ONE (16:32)
[2020-10-27] MEDS ORDERED: DIPHTH,PERTUSS(ACELL),TET 0.5 ML DISP.SYRIN IM ONE ×2 (16:40→17:42)
[2020-10-27] MEDS ORDERED: ACETAMINOPHEN 325 MG TABLET (FP) ONE (16:48)
[2020-10-27] MEDS ORDERED: oxyCODONE HCL 5 MG TABLET PO ONE (19:01)
[2020-10-27 19:05] VITALS: BP 110/58; PULSE 72; TEMP 98.4
[2020-10-27] MEDS ORDERED: oxyCODONE HCL 5 MG TABLET ONE (19:12)
== END 2020-10-27 19:22 | disposition home or self-care (01) ==
LOC: JER 15:24
PROC: 0HQDXZZ Repair Right Lower Arm Skin, External Approach (ICD-10-PCS; principal; 2020-10-27)
PROC: 2W3CX1Z Immobilization of Right Lower Arm using Splint (ICD-10-PCS; 2020-10-27)
PROC: 3E0234Z Introduction of Serum, Toxoid and Vaccine into Muscle, Percutaneous Approach (ICD-10-PCS; 2020-10-27)
DX: S51.011A Laceration without foreign body of right elbow, initial encounter (principal); S62.306A Unspecified fracture of fifth metacarpal bone, right hand, initial encounter for closed fracture
CPT/HCPCS: 12002-25; 29126; 70450-TC; 72125-TC; 73030-TC-RT-FY; 73060-TC-RT-FY; 73070-TC-RT-FY; 73090-TC-RT-FY; 73110-TC-RT-FY; 73130-TC-RT-FY; 90471; 90715; 99285-25

== ENCOUNTER 2021-05-22 11:14 | Emergency (ER) | payer OTHER ==
[2021-05-22 11:21] VITALS: TEMP 98.4; BMI 30.9
[2021-05-22] MEDS ORDERED: SODIUM CHLORIDE 1,000 ML IV STA (11:54)
[2021-05-22] MEDS ORDERED: ACETAMINOPHEN 1000 MG/100 ML BAG IVPB ONE (11:54)
[2021-05-22] MEDS ORDERED: ACETAMINOPHEN INJECTION 100 ML IVPB ONE (11:58)
[2021-05-22 12:29] LABS: BASO % 0.5 % (0-2.0); EOS % 1.5 % (0-4.5); HEMATOCRIT 35.2 % (32.4-45.2); HEMOGLOBIN 11.5 GM/dL (10.7-15.3); LYMPH % 15.5 % (8-40); MCHC 32.6 g/dl (32.0-36.0); MEAN CELL VOLUME 89.1 fl (80-96); MEAN PLT VOLUME 7.2 fl (7.5-11.1); MONO % 8.4 % (3.8-10.2); NEUT % 74.1 % (42.8-82.8); PLATELET COUNT 317 10^3/uL (134-434); RBC 3.96 M/mm3 (3.60-5.2); RDW 17.7 % (11.6-15.6); WHITE BLOOD COUNT 5.1 K/mm3 (4.0-10.0)
[2021-05-22 12:31] LABS: PH,URINE 5.5 (5.0-8.0); URINE APPEARANCE CLEAR; URINE BILIRUBIN NEGATIVE (NEGATIVE); URINE COLOR YELLOW; URINE GLUCOSE (UA) NEGATIVE (NEGATIVE); URINE KETONE NEGATIVE (NEGATIVE); URINE LEUK ESTERASE NEGATIVE (NEGATIVE); URINE NITRITE NEGATIVE (NEGATIVE); URINE PROTEIN NEGATIVE (NEGATIVE); URINE UROBILINOGEN 0.2 mg/dL (0.2-1.0)
[2021-05-22 12:37] LABS: INR 0.97 (0.83-1.09); PROTHROMBIN TIME (PATIENT) 11.2 SEC (9.7-13.0)
[2021-05-22 12:39] LABS: ACTIVATED PTT 26.7 SECONDS (25.2-36.5)
[2021-05-22 12:51] LABS: CALCIUM 8.9 mg/dL (8.5-10.1)
[2021-05-22 12:52] LABS: BLOOD UREA NITROGEN 9.5 mg/dL (7-18)
[2021-05-22 12:54] LABS: CREATININE 0.7 mg/dL (0.55-1.3)
[2021-05-22 12:55] LABS: PHOSPHOROUS 3.8 mg/dL (2.5-4.9)
[2021-05-22 12:56] LABS: TOT PROT 7.6 g/dl (6.4-8.2)
[2021-05-22 12:57] LABS: BILIRUBIN,TOTAL 0.3 mg/dL (0.2-1)
[2021-05-22 15:53] VITALS: BP 143/79; PULSE 89
== END 2021-05-22 16:14 | disposition home or self-care (01) ==
LOC: JER 11:14
PROC: 3E033GC Introduction of Other Therapeutic Substance into Peripheral Vein, Percutaneous Approach (ICD-10-PCS; principal; 2021-05-22)
DX: R10.30 Lower abdominal pain, unspecified (principal)
CPT/HCPCS: 36415; 74177-TC; 80053; 81003; 82550; 83605; 83690; 83735; 84100; 84484; 85025; 85610; 85730; 87086; 93005; 93010; 96361; 96374; 99285-25; C9803; Q9967; U0003; U0005

== ENCOUNTER 2022-02-06 13:54 | Emergency (ER) | payer OTHER ==
[2022-02-06 14:03] VITALS: RESP 18; BMI 24.0
[2022-02-06 18:34] LABS: HEMATOCRIT 34.6 % (32.4-45.2); HEMOGLOBIN 11.6 GM/dL (10.7-15.3); MCH 33.4 pg (25.7-33.7); MCHC 33.7 g/dl (32.0-36.0); MEAN PLT VOLUME 6.9 fl (7.5-11.1); PLATELET COUNT 264 10^3/uL (134-434); RBC 3.49 M/mm3 (3.60-5.2); RDW 13.9 % (11.6-15.6); WHITE BLOOD COUNT 4.9 K/mm3 (4.0-10.0)
[2022-02-06 18:53] LABS: CALCIUM 8.9 mg/dL (8.5-10.1)
[2022-02-06 18:54] LABS: ALBUMIN 3.8 g/dl (3.4-5.0); BLOOD UREA NITROGEN 10.1 mg/dL (7-18); MAGNESIUM 1.9 mg/dL (1.8-2.4)
[2022-02-06 18:57] LABS: CREATININE 0.7 mg/dL (0.55-1.3)
[2022-02-06 18:58] LABS: TOT PROT 6.8 g/dl (6.4-8.2)
[2022-02-06 19:03] LABS: BILIRUBIN,TOTAL 0.3 mg/dL (0.2-1)
[2022-02-06 20:34] LABS: EPI CELLS 10 /uL (0-25.1); HYALINE CASTS 1 /uL (0-3.1); PH,URINE 5.5 (5.0-8.0); URINE APPEARANCE CLEAR; URINE BACTERIA 38 /uL (0-1359); URINE BILIRUBIN NEGATIVE (NEGATIVE); URINE COLOR YELLOW; URINE GLUCOSE (UA) NEGATIVE (NEGATIVE); URINE KETONE NEGATIVE (NEGATIVE); URINE LEUK ESTERASE 1+ (NEGATIVE); URINE NITRITE NEGATIVE (NEGATIVE); URINE PROTEIN NEGATIVE (NEGATIVE); URINE RBC 6 /uL (0-23.9); URINE UROBILINOGEN 0.2 mg/dL (0.2-1.0); URINE WBC 28 /uL (0-25.8)
[2022-02-07 01:42] VITALS: BP 167/61; PULSE 82; TEMP 98.6
== END 2022-02-07 01:42 | disposition home or self-care (01) ==
LOC: JER 13:54
DX: R10.9 Unspecified abdominal pain (principal)
CPT/HCPCS: 0241U-QW; 36415; 74177-TC; 80053; 81003; 83605; 83690; 83735; 85027; 87086; 93005; 93010; 99285-25; Q9967

== ENCOUNTER 2022-03-22 22:41 | Emergency (ER) | payer OTHER ==
[2022-03-22 23:03] VITALS: BP 177/81; PULSE 79; RESP 22; TEMP 98.1; BMI 25.0
[2022-03-23] MEDS ORDERED: ALBUTEROL SO4 2.5/IPRATROPIUM 0.5 INH SOL 3 ML VIAL.NEB. NEB ONE ×2 (00:22→00:27)
[2022-03-23 00:34] LABS: BASO % 0.7 % (0-2.0); EOS % 0.6 % (0-4.5); HEMATOCRIT 35.1 % (32.4-45.2); HEMOGLOBIN 11.6 GM/dL (10.7-15.3); LYMPH % 22.8 % (8-40); MCH 31.8 pg (25.7-33.7); MEAN CELL VOLUME 96.6 fl (80-96); MEAN PLT VOLUME 7.4 fl (7.5-11.1); MONO % 6.8 % (3.8-10.2); NEUT % 69.1 % (42.8-82.8); PLATELET COUNT 264 10^3/uL (134-434); RBC 3.63 M/mm3 (3.60-5.2); RDW 13.2 % (11.6-15.6)
[2022-03-23 00:49] LABS: INR 0.97 (0.83-1.09); PROTHROMBIN TIME (PATIENT) 11.1 SEC (9.7-13.0)
[2022-03-23 00:51] LABS: ACTIVATED PTT 28.4 SECONDS (25.2-36.5)
[2022-03-23 00:53] LABS: CALCIUM 8.9 mg/dL (8.5-10.1)
[2022-03-23 00:54] LABS: ALBUMIN 3.7 g/dl (3.4-5.0); BLOOD UREA NITROGEN 6.4 mg/dL (7-18)
[2022-03-23 00:57] LABS: CREATININE 0.7 mg/dL (0.55-1.3)
[2022-03-23 00:59] LABS: BILIRUBIN,TOTAL 0.2 mg/dL (0.2-1); TOT PROT 7.1 g/dl (6.4-8.2)
[2022-03-23 01:02] LABS: N-TERMINAL BNP 368.5 pg/ml (5-450)
== END 2022-03-23 03:46 | disposition home or self-care (01) ==
LOC: JER 22:41
PROC: 3E0F7GC Introduction of Other Therapeutic Substance into Respiratory Tract, Via Natural or Artificial Opening (ICD-10-PCS; principal; 2022-03-22)
DX: U07.1 COVID-19 (principal); R06.02 Shortness of breath
CPT/HCPCS: 0241U-QW; 36415; 71045-TC-FY; 71275-TC; 80053; 83880; 84484; 85025; 85610; 85730; 93005; 93010; 99285-25; Q9967

== ENCOUNTER 2023-07-10 11:31 | Inpatient (IN) | payer OTHER ==
[2023-07-10 11:47] VITALS: BMI 24.3
[2023-07-10] MEDS ORDERED: ACETAMINOPHEN INJECTION 100 ML IVPB ONE (14:08)
[2023-07-10 14:11] LABS: BASO % 0.3 % (0-2.0); EOS % 0.2 % (0-4.5); HEMATOCRIT 33.8 % (32.4-45.2); HEMOGLOBIN 11.2 GM/dL (10.7-15.3); LYMPH % 18.5 % (8-40); MCH 31.6 pg (25.7-33.7); MCHC 33.2 g/dl (32.0-36.0); MEAN CELL VOLUME 95.4 fl (80-96); MEAN PLT VOLUME 6.5 fl (7.5-11.1); MONO % 6.3 % (3.8-10.2); NEUT % 74.7 % (42.8-82.8); PLATELET COUNT 312 10^3/uL (134-434); RBC 3.54 M/mm3 (3.60-5.2); URINE APPEARANCE CLEAR; URINE BILIRUBIN NEGATIVE (NEGATIVE); URINE COLOR YELLOW; URINE GLUCOSE (UA) NEGATIVE (NEGATIVE); URINE KETONE 1+ (NEGATIVE); URINE LEUK ESTERASE NEGATIVE (NEGATIVE); URINE NITRITE NEGATIVE (NEGATIVE); URINE PROTEIN TRACE (NEGATIVE); URINE UROBILINOGEN 0.2 mg/dL (0.2-1.0); WHITE BLOOD COUNT 5.8 K/mm3 (4.0-10.0)
[2023-07-10 14:15] LABS: INR 1.02 (0.83-1.09); PROTHROMBIN TIME (PATIENT) 11.8 SEC (9.7-13.0)
[2023-07-10 14:18] LABS: ACTIVATED PTT 28.9 SECONDS (25.2-36.5)
[2023-07-10] MEDS: ACETAMINOPHEN 1000 MG/100 ML BAG IVPB ONE (14:21)
[2023-07-10 15:04] LABS: POTASSIUM 4.3 mmol/L (3.5-5.1)
[2023-07-10 15:08] LABS: CALCIUM 9.3 mg/dL (8.5-10.1)
[2023-07-10 15:09] LABS: ALBUMIN 3.8 g/dl (3.4-5.0); BLOOD UREA NITROGEN 6.1 mg/dL (7-18); MAGNESIUM 1.9 mg/dL (1.8-2.4)
[2023-07-10 15:12] LABS: CREATININE 0.6 mg/dL (0.55-1.3)
[2023-07-10 15:15] LABS: BILIRUBIN,TOTAL 0.3 mg/dL (0.2-1); TOT PROT 7.2 g/dl (6.4-8.2)
[2023-07-10 15:18] LABS: N-TERMINAL BNP 423.7 pg/ml (5-450)
[2023-07-10] MEDS ORDERED: morphine SULFATE 4 MG/ML VIAL ONE (18:15)
[2023-07-10] MEDS: morphine SULFATE 4 MG/ML VIAL IVPUSH ONE (18:39)
[2023-07-10] MEDS ORDERED: DOCUSATE SODIUM 100 MG CAPSULE (FP) PO PRN (22:49)
[2023-07-10] MEDS ORDERED: ACETAMINOPHEN 325 MG TABLET (FP) PO PRN (22:49)
[2023-07-10] MEDS: PANTOPRAZOLE 40 MG TABLET PO SCH (23:44)
[2023-07-10] MEDS: KETOROLAC TROMETHAMINE 15 MG/ML VIAL IVPUSH PRN (23:45)
[2023-07-11] MEDS: ACETAMINOPHEN 1000 MG/100 ML BAG IVPB PRN (01:46)
[2023-07-11 09:37] LABS: BASO % 0.2 % (0-2.0); LYMPH % 19.5 % (8-40); MCH 30.8 pg (25.7-33.7); MCHC 32.5 g/dl (32.0-36.0); MEAN CELL VOLUME 94.8 fl (80-96); MEAN PLT VOLUME 6.8 fl (7.5-11.1); MONO % 9.4 % (3.8-10.2); NEUT % 69.9 % (42.8-82.8); PLATELET COUNT 291 10^3/uL (134-434); RBC 3.58 M/mm3 (3.60-5.2); RDW 15.9 % (11.6-15.6)
[2023-07-11 09:50] LABS: POTASSIUM 3.6 mmol/L (3.5-5.1)
[2023-07-11 09:54] LABS: BLOOD UREA NITROGEN 4.2 mg/dL (7-18); CALCIUM 8.9 mg/dL (8.5-10.1)
[2023-07-11 09:57] LABS: CREATININE 0.5 mg/dL (0.55-1.3)
[2023-07-11] MEDS ORDERED: ACETAMINOPHEN 1000 MG/100 ML BAG IVPB PRN (10:35)
[2023-07-11] MEDS: amLODIPine BESYLATE 5 MG TABLET (FP) PO SCH (10:59)
[2023-07-11] MEDS: DULoxetine HCL 30 MG CAPSULE.DR PO SCH (10:59)
[2023-07-11] MEDS: PREGABALIN 100 MG CAPSULE PO SCH (10:59)
[2023-07-11] MEDS: LISINOPRIL 5 MG TABLET PO SCH (10:59)
[2023-07-11] MEDS: SODIUM CHLORIDE 1,000 ML IV SCH (12:13)
[2023-07-11] MEDS: KETOROLAC TROMETHAMINE 15 MG/ML VIAL IVPUSH SCH (12:44)
[2023-07-11 19:52] LABS: POTASSIUM 3.6 mmol/L (3.5-5.1)
[2023-07-11 19:53] LABS: BLOOD UREA NITROGEN 5.6 mg/dL (7-18); CALCIUM 8.6 mg/dL (8.5-10.1)
[2023-07-11 19:56] LABS: CREATININE 0.7 mg/dL (0.55-1.3)
[2023-07-11] MEDS: CALCIUM 500MG/VIT-D 200 UNITS COMBO TABLET (FP) PO SCH (21:31)
[2023-07-11] MEDS: ATORVASTATIN CA 20 MG TABLET (FP) PO SCH (21:31)
[2023-07-12] MEDS: oxyCODONE HCL 5 MG TABLET PO PRN (02:21)
[2023-07-12 09:12] LABS: BASO % 0.4 % (0-2.0); HEMATOCRIT 32.6 % (32.4-45.2); HEMOGLOBIN 10.7 GM/dL (10.7-15.3); LYMPH % 27.3 % (8-40); MCH 31.4 pg (25.7-33.7); MEAN CELL VOLUME 95.2 fl (80-96); MEAN PLT VOLUME 6.6 fl (7.5-11.1); MONO % 9.7 % (3.8-10.2); NEUT % 59.6 % (42.8-82.8); PLATELET COUNT 271 10^3/uL (134-434); RBC 3.42 M/mm3 (3.60-5.2); RDW 15.8 % (11.6-15.6); WHITE BLOOD COUNT 5.9 K/mm3 (4.0-10.0)
[2023-07-12] MEDS: POLYETHYLENE GLYCOL (HEALTHYLAX) 3350 17 GM PACKET PO SCH (09:19)
[2023-07-12 09:31] LABS: POTASSIUM 3.8 mmol/L (3.5-5.1)
[2023-07-12 09:36] LABS: CALCIUM 8.6 mg/dL (8.5-10.1)
[2023-07-12 09:40] LABS: CREATININE 0.5 mg/dL (0.55-1.3)
[2023-07-12 09:41] LABS: BILIRUBIN,TOTAL 0.4 mg/dL (0.2-1)
[2023-07-12 09:55] LABS: ALBUMIN 2.9 g/dl (3.4-5.0)
[2023-07-12] MEDS: SODIUM CHLORIDE 1,000 ML IV SCH (15:41)
[2023-07-12] MEDS: ENOXAPARIN NA (PORCINE) 40 MG/0.4 ML DISP.SYRIN SQ SCH (15:42)
[2023-07-13 09:54] LABS: BASO % 0.3 % (0-2.0); EOS % 4.1 % (0-4.5); HEMOGLOBIN 11.2 GM/dL (10.7-15.3); LYMPH % 17.3 % (8-40); MCH 32.2 pg (25.7-33.7); MEAN CELL VOLUME 94.8 fl (80-96); MEAN PLT VOLUME 6.9 fl (7.5-11.1); MONO % 10.3 % (3.8-10.2); PLATELET COUNT 275 10^3/uL (134-434); RBC 3.49 M/mm3 (3.60-5.2); WHITE BLOOD COUNT 6.6 K/mm3 (4.0-10.0)
[2023-07-13 10:11] LABS: POTASSIUM 4.4 mmol/L (3.5-5.1)
[2023-07-13 10:26] LABS: BLOOD UREA NITROGEN 11.6 mg/dL (7-18)
[2023-07-13 10:29] LABS: CREATININE 0.6 mg/dL (0.55-1.3)
[2023-07-13] MEDS: SODIUM CHLORIDE 1,000 ML IV SCH (12:23)
[2023-07-13] MEDS: oxyCODONE HCL 5 MG TABLET PO PRN (15:57)
[2023-07-13] MEDS: ACETAMINOPHEN 325 MG TABLET (FP) PO PRN (21:42)
[2023-07-14 09:38] LABS: POTASSIUM 4.1 mmol/L (3.5-5.1)
[2023-07-14 09:39] LABS: CALCIUM 9.1 mg/dL (8.5-10.1)
[2023-07-14 09:40] LABS: BLOOD UREA NITROGEN 9.6 mg/dL (7-18)
[2023-07-14 09:43] LABS: CREATININE 0.6 mg/dL (0.55-1.3)
[2023-07-15 08:55] LABS: BASO % 0.7 % (0-2.0); EOS % 6.3 % (0-4.5); HEMOGLOBIN 10.9 GM/dL (10.7-15.3); LYMPH % 23.2 % (8-40); MCH 31.7 pg (25.7-33.7); MEAN CELL VOLUME 95.9 fl (80-96); MEAN PLT VOLUME 6.9 fl (7.5-11.1); MONO % 10.9 % (3.8-10.2); NEUT % 58.9 % (42.8-82.8); PLATELET COUNT 303 10^3/uL (134-434); RBC 3.44 M/mm3 (3.60-5.2); RDW 15.8 % (11.6-15.6); WHITE BLOOD COUNT 5.8 K/mm3 (4.0-10.0)
[2023-07-15 09:12] LABS: POTASSIUM 4.2 mmol/L (3.5-5.1)
[2023-07-15 09:16] LABS: BLOOD UREA NITROGEN 6.3 mg/dL (7-18)
[2023-07-15 09:19] LABS: CREATININE 0.6 mg/dL (0.55-1.3)
[2023-07-15] MEDS: METHOCARBAMOL 500 MG TABLET PO PRN (10:06)
[2023-07-15] MEDS: BISACODYL 10 MG SUPP.RECT PR ONE (10:07)
[2023-07-15] MEDS: MAGNESIUM HYDROX 2400MG/30ML ORAL SUSPENSION 30 ML CUP PO ONE (10:07)
[2023-07-15 12:00] VITALS: RESP 18
[2023-07-15] MEDS: ZOLPIDEM TARTRATE 5 MG TABLET PO PRN (23:18)
[2023-07-16 08:42] LABS: CALCIUM 9.2 mg/dL (8.5-10.1)
[2023-07-16 08:43] LABS: BLOOD UREA NITROGEN 6.6 mg/dL (7-18)
[2023-07-16 08:45] LABS: CREATININE 0.6 mg/dL (0.55-1.3)
[2023-07-18 10:03] LABS: HEMATOCRIT 31.8 % (32.4-45.2); HEMOGLOBIN 10.8 GM/dL (10.7-15.3); MCH 31.9 pg (25.7-33.7); MCHC 33.9 g/dl (32.0-36.0); MEAN CELL VOLUME 94.3 fl (80-96); MEAN PLT VOLUME 7.1 fl (7.5-11.1); PLATELET COUNT 308 10^3/uL (134-434); RBC 3.37 M/mm3 (3.60-5.2); RDW 15.9 % (11.6-15.6)
[2023-07-18 10:08] LABS: POTASSIUM 3.8 mmol/L (3.5-5.1)
[2023-07-18 10:14] LABS: BLOOD UREA NITROGEN 8.2 mg/dL (7-18); CALCIUM 9.3 mg/dL (8.5-10.1)
[2023-07-18 10:17] LABS: CREATININE 0.7 mg/dL (0.55-1.3)
[2023-07-18 19:23] VITALS: BP 140/58; PULSE 82; TEMP 98.3
== END 2023-07-18 18:55 | disposition home or self-care (01) | DRG 552 ==
LOC: JER 11:31 → JERBED 17:57 → J5S 18:50 → OBSVTOIN 07-16 09:33 → J5S 07-16 16:06
PROVIDERS: ADMIT Internal Medicine
DX: S32.038A Other fracture of third lumbar vertebra, initial encounter for closed fracture (principal); S22.42XA Multiple fractures of ribs, left side, initial encounter for closed fracture; E87.1 Hypo-osmolality and hyponatremia; F11.20 Opioid dependence, uncomplicated; E78.5 Hyperlipidemia, unspecified; K21.9 Gastro-esophageal reflux disease without esophagitis; I10 Essential (primary) hypertension; K59.00 Constipation, unspecified; F32.A Depression, unspecified; G89.29 Other chronic pain; W18.30XA Fall on same level, unspecified, initial encounter; Y92.099 Unspecified place in other non-institutional residence as the place of occurrence of the external cause; Y99.9 Unspecified external cause status
CPT/HCPCS: 0241U-QW; 36415; 70450-TC; 71045-TC-FY; 72125-TC; 72128-TC; 72131-TC; 72170-TC-FY; 73521-TC-FY; 74177-TC; 80048; 80053; 81003; 83036; 83735; 83880; 83930; 83935; 84300; 84439; 84443; 84484; 85025; 85027; 85610; 85730; 86850; 86900; 86901; 87086; 87635; 93005; 93010; 94010; 97116-GP; 97161-GP; 99285-25; G0378; J0131